=== PATIENT | female | born 1990 | race Caucasian/White ===

== ENCOUNTER → 2017-06-26 13:17 | Outpatient (CLI) | payer OTHER, SELFPAY ==
[2017-06-26 14:11] LABS: Hemoglobin A1c 9.8 % (4.2-6.3)
[2017-06-26 14:44] LABS: AST(SGOT) 11 U/L (15-37); Alanine Aminotransfer ALT/SGPT 19 U/L (13-56); Albumin, Serum 3.7 g/dL (3.2-5.0); Alkaline Phosphatase 92 U/L (45-117); Anion Gap 7 (5-15); BUN 20 mg/dL (7-18); BUN/Creat Ratio 23.2 RATIO (10-20); Calcium,Total 8.4 mg/dL (8.5-10.1); Chloride 104 mmol/L (98-107); Creatinine, Serum 0.86 mg/dL (0.55-1.02); EST Glomerular Filtration Rate 84 mL/min (>60); Est Glom Filt Rate - Afr Amer 101 mL/min (>60); Globulin 3.7 g/dL (2.2-4.2); Glucose 282 mg/dL (74-106); Protein, Total 7.4 g/dL (6.4-8.2); Sodium Level 138 mmol/L (136-145)
== END ==
PROVIDERS: Family Provider Nurse Practitioner; PCP Nurse Practitioner; Visit Provider Nurse Practitioner
DX: E10.9 Type 1 diabetes mellitus without complications (principal)
CPT/HCPCS: 36415; 80053; 83036

== ENCOUNTER → 2017-07-10 17:49 | Outpatient (CLI) | payer OTHER, SELFPAY ==
[2017-07-10 17:51] LABS: Bacteria 0 SEEN /hpf (None Seen); Mucous, Urine 0 SEEN /hpf (<or=2+); Red Blood Cells-Urine 0 SEEN /hpf (0-5); White Blood Cells 0 SEEN /hpf (0-5)
[2017-07-10 18:13] LABS: Color, Urine Yellow (Yellow); Glucose, Dipstick Normal (Normal); Ketone-Dipstick Negative (Negative); Leukocyte Esterase-Dipstick Negative /ul (Negative); Nitrite-Dipstick Negative (Negative); Occult Blood-Urine Negative /ul (Negative); Protein-Dipstick Negative (Negative); Specific Gravity, Urine 1.015 (1.002-1.030); Urine Bilirubin Dipstick Negative (Negative); Urine Clarity Clear (Clear); Urine Urobilinogen Normal (Normal)
[2017-07-10 18:33] LABS: Squamous Epithelial Cells - UA 0-5 SEEN /hpf (5-10)
== END ==
PROVIDERS: Family Provider Nurse Practitioner; PCP Nurse Practitioner; Visit Provider Physician Assistant Surgical
DX: R10.9 Unspecified abdominal pain (principal)
CPT/HCPCS: 81001; 87077; 87086; 87088

== ENCOUNTER → 2017-09-22 11:50 | Outpatient (CLI) | payer OTHER, SELFPAY ==
[2017-09-22 13:13] LABS: Microalbumin,Random Urine 7.4 mg/L (NO RANGE EST.)
[2017-09-22 13:39] LABS: Hemoglobin A1c 8.3 % (4.2-6.3)
[2017-09-22 13:40] LABS: ALB/GLOB Ratio 0.9 RATIO (0.9-2.4); AST(SGOT) 10 U/L (15-37); Alanine Aminotransfer ALT/SGPT 18 U/L (13-56); Albumin, Serum 3.7 g/dL (3.2-5.0); Alkaline Phosphatase 89 U/L (45-117); Anion Gap 7 (5-15); BUN 12 mg/dL (7-18); BUN/Creat Ratio 15.3 RATIO (10-20); Calcium,Total 9.3 mg/dL (8.5-10.1); Chloride 104 mmol/L (98-107); Creatinine, Serum 0.78 mg/dL (0.55-1.02); EST Glomerular Filtration Rate 93 mL/min (>60); Est Glom Filt Rate - Afr Amer 113 mL/min (>60); Globulin 3.9 g/dL (2.2-4.2); Glucose 136 mg/dL (74-106); Protein, Total 7.6 g/dL (6.4-8.2); Sodium Level 141 mmol/L (136-145)
== END ==
PROVIDERS: Visit Provider Nurse Practitioner
DX: E10.9 Type 1 diabetes mellitus without complications (principal)
CPT/HCPCS: 36415; 80053; 82043; 82570; 83036

== ENCOUNTER → 2018-02-22 14:30 | Outpatient (CLI) | payer BC, SELFPAY ==
[2018-02-22 12:42] VITALS: BMI 24.0
[2018-02-22 17:03] LABS: Hemoglobin A1c 9.3 % (4.2-6.3)
== END ==
PROVIDERS: Referring Provider Nurse Practitioner; Visit Provider Nurse Practitioner
DX: E10.9 Type 1 diabetes mellitus without complications (principal)
CPT/HCPCS: 36415; 83036

== ENCOUNTER → 2018-04-26 11:24 | Outpatient (CLI) | payer BC, SELFPAY ==
[2018-04-26 10:15] VITALS: BMI 24.0
[2018-04-26 13:29] LABS: Hemoglobin A1c 8.3 % (4.2-6.3)
[2018-04-26 13:38] LABS: AST(SGOT) 12 U/L (15-37); Alanine Aminotransfer ALT/SGPT 18 U/L (13-56); Albumin, Serum 3.9 g/dL (3.2-5.0); Alkaline Phosphatase 84 U/L (45-117); Anion Gap 5 (5-15); BUN 11 mg/dL (7-18); BUN/Creat Ratio 15.4 RATIO (10-20); Calcium,Total 8.6 mg/dL (8.5-10.1); Chloride 107 mmol/L (98-107); Creatinine, Serum 0.72 mg/dL (0.55-1.02); EST Glomerular Filtration Rate 103 mL/min (>60); Est Glom Filt Rate - Afr Amer 125 mL/min (>60); Globulin 3.9 g/dL (2.2-4.2); Glucose 155 mg/dL (74-106); Protein, Total 7.8 g/dL (6.4-8.2); Sodium Level 138 mmol/L (136-145)
== END ==
PROVIDERS: Referring Provider Nurse Practitioner; Visit Provider Nurse Practitioner
DX: E10.9 Type 1 diabetes mellitus without complications (principal)
CPT/HCPCS: 36415; 80053; 83036

== ENCOUNTER → 2018-06-21 09:34 | Outpatient (CLI) | payer BC, SELFPAY ==
[2018-05-31 13:08] VITALS: BMI 24.0
[2018-06-21 12:38] LABS: Absolute Lymphocyte Count 1.86 X10^3/ul (0.83-4.51); Absolute Neutrophil Count 3.9 X10^3/uL (2.0-7.7); Basophil# 0.02 X10^3/uL; Basophil% 0.3 % (0-1); Eosinophil# 0.09 X10^3/uL; Eosinophils% 1.4 % (0-5); Hematocrit 42.1 % (37-47); Hemoglobin 13.6 g/dl (12.0-15.0); Lymphocyte # 1.86 X10^3/ul (4.0); Lymphocyte % 29.7 % (19-41); Mean Corp Hgb Conc 32.3 g/gl (32-36); Mean Corpuscular Volume 83.7 fL (81-99); Mean Platelet Vol. 11.3 fl (6.2-12.0); Monocyte# 0.39 X10^3/uL; Monocyte% 6.2 % (0-10); Neutrophil % 62.2 % (47-70); Platelet Count 258 K/mm3 (150-450); RBC Distribution Width CV 14.6 % (11.6-14.6); Red Blood Count 5.03 M/mm3 (4.2-5.4); White Blood Count 6.3 K/mm3 (4.4-11.0)
[2018-06-21 12:42] LABS: POSITIVE COUNT NO; POSITIVE DIFFERENTIAL NO; POSITIVE MORPHOLOGY NO
[2018-06-21 12:47] LABS: Microalbumin,Random Urine 12.4 mg/L (NO RANGE EST.); Microalbumin:Creatinine Ratio 29.5 mg/g CRE (<30 mg/g CRE)
[2018-06-21 13:02] LABS: Cholesterol 129 mg/dL (200); High Density Lipoprotein 74 mg/dL; Triglycerides 35 mg/dL; Very Low Density Lipoprotein 7 mg/dL (5-40)
== END ==
PROVIDERS: PCP Internal Medicine; Visit Provider Internal Medicine
DX: E10.9 Type 1 diabetes mellitus without complications (principal)
CPT/HCPCS: 36415; 80061; 82043; 82570; 85025

== ENCOUNTER → 2018-10-08 15:29 | Outpatient (CLI) | payer BC, SELFPAY ==
[2018-10-08 11:41] VITALS: BMI 23.2
[2018-10-11 14:19] LABS: HPV Reflexed? NOT INDICATED
== END ==
PROVIDERS: Referring Provider Obstetrics & Gynecology; Visit Provider Obstetrics & Gynecology
DX: Z12.4 Encounter for screening for malignant neoplasm of cervix (principal)
CPT/HCPCS: 87624; 88175; G0145

== ENCOUNTER 2018-12-11 21:28 | Emergency (ER) | payer BC, SELFPAY ==
[2018-10-08 11:41] VITALS: BMI 23.2
[2018-12-11 21:29] VITALS: BP 114/78; PULSE 101; RESP 16; TEMP 36.6; O2SAT 99; BMI 23.1
--- NOTE | 2018-12-11 21:48 | ED.DCSUM_ITS ---
- ER Visit Summary Date of Service: 12/11/18 Chief Complaint: Vomiting and diarrhea History of Present Illness: The patient is a 28 F presenting with vomiting and diarrhea. Her symptoms started last night. She states she had one episode of vomiting. Today she developed diarrhea. She has had 8 episodes of diarrhea today. Denies blood in her stool. 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 She does not recall any patients with similar complaints. She has had no recent antibiotics, recent travel, or bad food exposure. She has had subjective fever. She denies abdominal pain. Denies urinary complaints. Denies other complaints. Physical Examination: Vitals are stable. Patient is afebrile. Alert no acute distress. HEENT exam is unremarkable. Neck is supple. Lungs are clear and equal bilaterally. Heart is regular rate and rhythm. Abdomen is soft nontender nondistended. No guarding or rebound Extremities are unremarkable. Skin is warm and dry. No focal neurologic deficit. Remainder of exam is unremarkable. Emergency Department Course and Treatment: Patient was given IV fluids, Zofran. CBC, chemistries unremarkable other than potassium 2.9, glucose 150. Liver lipase are normal. hCG negative. She is given potassium oral replacement. On reevaluation, she is feeling much improved. She is able to tolerate p.o. in the ED. She was unable to give a stool sample. She is given prescription for Zofran and K-Dur. She is advised to follow up with her primary care physician. Advised return to the ED for worsening complaints. Disposition: Discharge home Impression: Vomiting and diarrhea This note was generated with [employer] dictation software. It may contain incorrect words, spelling, and punctuation that were not noted in review of the chart prior to signing ED Disposition - Plan for ED Patient: Instructions: VOMITING AND DIARRHEA, Nonspecific (Adult) Prescriptions: Potassium Chloride [K-Dur] 20 meq PO DAILY #5 tab Prescription Printed Ondansetron [Zofran Odt] 4 mg PO Q8H PRN PRN #10 tab PRN Reason: Nausea Prescription Printed Referrals: Charmaine Cronin MD [Primary Care Provider] -
[2018-12-11] MEDS: Ondansetron 4 MG/2 ML Vial IV (21:54)
[2018-12-11] MEDS: 0.9% Normal Saline 1,000 ML 1000 ML IV (21:54)
[2018-12-11 21:55] LABS: Absolute Lymphocyte Count 0.76 X10^3/uL (0.83-4.51); Basophil# 0.02 X10^3/uL; Basophil% 0.5 % (0-1); Eosinophil# 0.03 X10^3/uL; Eosinophils% 0.7 % (0-5); Hematocrit 44.7 % (37-47); Hemoglobin 15.1 g/dL (12.0-15.0); Lymphocyte # 0.76 X10^3/ul (4.0); Lymphocyte % 18.1 % (19-41); Mean Corp Hgb Conc 33.8 g/dL (32-36); Mean Corpuscular Volume 82.8 fL (81-99); Monocyte# 0.32 X10^3/uL; Monocyte% 7.6 % (0-10); NRBC Flagged by Analyzer 0 % (0-5); Neutrophil # 3.03 X10^3/uL (2.7-7.7); Neutrophil % 72.4 % (47-70); Platelet Count 207 K/mm3 (150-450); RBC Distribution Width SD 38.9 fl (35.1-43.9); White Blood Count 4.2 K/mm3 (4.4-11.0)
[2018-12-11 22:08] LABS: AST(SGOT) 12 U/L (15-37); Alanine Aminotransfer ALT/SGPT 18 U/L (13-56); Albumin, Serum 3.6 g/dL (3.2-5.0); Alkaline Phosphatase 64 U/L (45-117); Anion Gap 8 (5-15); BUN 13 mg/dL (7-18); BUN/Creat Ratio 16.7 RATIO (10-20); Calcium,Total 8.2 mg/dL (8.5-10.1); Chloride 104 mmol/L (98-107); Creatinine, Serum 0.78 mg/dL (0.55-1.02); EST Glomerular Filtration Rate 93 mL/min (>60); Est Glom Filt Rate - Afr Amer 113 mL/min (>60); Estimated Creatinine Clearance 96.62 ml/min; Globulin 3.7 g/dL (2.2-4.2); Glucose 150 mg/dL (74-106); Lipase 56 U/L (73-393); Potassium 2.9 mmol/L (3.5-5.1); Protein, Total 7.3 g/dL (6.4-8.2); Sodium Level 137 mmol/L (136-145)
[2018-12-11 22:19] LABS: Internal QC Validated? YES +Cl - CLEAR BKGD; Pregnancy, Serum, hCG Quali. NEGATIVE Negative
--- NOTE | 2018-12-11 22:44 | ED.DEP ---
ED Disposition - Plan for ED Patient: Instructions: VOMITING AND DIARRHEA, Nonspecific (Adult) Prescriptions: Potassium Chloride [K-Dur] 20 meq PO DAILY #5 tablet Ondansetron [Zofran Odt] 4 mg PO Q8H PRN PRN #10 tablet PRN Reason: Nausea Referrals: Charmaine Cronin MD [Primary Care Provider] -
[2018-12-11 22:58] VITALS: PULSE 88; RESP 17; O2SAT 99
== END 2018-12-11 22:59 | disposition home or self-care (01) ==
LOC: ED 21:58
PROVIDERS: Emergency Provider Emergency Medicine; Family Provider Internal Medicine; PCP Internal Medicine
DX: R11.10 Vomiting, unspecified (principal); R19.7 Diarrhea, unspecified
CPT/HCPCS: 80053; 83690; 84703; 85025; 96361; 96374; 99284; J7030; A4216; J2405

== ENCOUNTER → 2019-01-28 09:56 | Outpatient (CLI) | payer BC, SELFPAY ==
[2019-01-28 10:54] LABS: Hemoglobin A1c 7.5 % (4.2-6.3)
[2019-01-28 11:06] LABS: Microalbumin,Random Urine 6.3 mg/L (NO RANGE EST.)
[2019-01-28 11:07] LABS: ALB/GLOB Ratio 1.1 RATIO (0.9-2.4); AST(SGOT) 12 U/L (15-37); Alanine Aminotransfer ALT/SGPT 17 U/L (13-56); Alkaline Phosphatase 61 U/L (45-117); Anion Gap 4 (5-15); BUN 16 mg/dL (7-18); BUN/Creat Ratio 20.7 RATIO (10-20); Calcium,Total 8.7 mg/dL (8.5-10.1); Chloride 108 mmol/L (98-107); Creatinine, Serum 0.77 mg/dL (0.55-1.02); EST Glomerular Filtration Rate 94 mL/min (>60); Est Glom Filt Rate - Afr Amer 113 mL/min (>60); Globulin 3.5 g/dL (2.2-4.2); Glucose 131 mg/dL (74-106); Potassium 3.9 mmol/L (3.5-5.1); Protein, Total 7.5 g/dL (6.4-8.2); Sodium Level 137 mmol/L (136-145); Thyroid Stim Hormone (TSH) 1.76 uIU/mL (0.358-3.74)
== END ==
PROVIDERS: Family Provider Internal Medicine; PCP Internal Medicine; Referring Provider Nurse Practitioner; Visit Provider Nurse Practitioner
DX: O24.011 Pre-existing type 1 diabetes mellitus, in pregnancy, first trimester (principal); Z3A.00 Weeks of gestation of pregnancy not specified
CPT/HCPCS: 36415; 80053; 82043; 83036; 84443

== ENCOUNTER → 2019-02-05 17:40 | Outpatient (CLI) | payer BC, SELFPAY ==
[2019-02-05 14:50] VITALS: BMI 23.1
[2019-02-05 19:59] LABS: Chlamydia Trachomatis by PCR Negative (Negative); Neisserai gonorrhoeae by PCR Negative (Negative); Probe Check PASS; Sample Adequacy Control PASS; Specimen Processing Control PASS
== END ==
PROVIDERS: Family Provider Internal Medicine; PCP Internal Medicine; Visit Provider Obstetrics & Gynecology
DX: Z34.90 Encounter for supervision of normal pregnancy, unspecified, unspecified trimester (principal)
CPT/HCPCS: 87491; 87591

== ENCOUNTER → 2019-02-15 13:51 | Outpatient (CLI) | payer BC, SELFPAY ==
[2019-02-05 14:50] VITALS: BMI 23.1
--- NOTE | 2019-02-15 13:51 | US_ITS ---
STUDY: FIRST TRIMESTER OBSTETRICAL ULTRASOUND REASON FOR EXAM: Female, 28 years old viability LMP: 12/09/2018 TECHNIQUE: Transabdominal TECHNICAL QUALITY: Adequate. PRIOR ULTRASOUND: None. FINDINGS: There is visualization of a single gestational sac in a normal intrauterine position. The mean sac diameter (MSD) measures 2.8 cm, indicating an estimated gestational age (EGA) of 7 weeks, 6 days. The gestational sac shape is within normal limits. There is a visualized yolk sac. The yolk sac measures 5.6 mm. The placenta is non-visualized due to early . There is visualization of a live embryo. The crown-rump length (CRL) measures 1.2 cm, indicating an estimated gestational age (EGA) of 7 weeks, 3 days. There is demonstrated cardiac activity with a heart rate of 157 bpm. The estimated gestation age (EGA) by LMP is 8 weeks, 4 days. The estimated date of delivery (SANTO) by LMP is 09/23/2019. The estimated gestation age (EGA) by US is 7 weeks, 4 days. The estimated date of delivery (SANTO) by US is 09/30/2019. The uterus measures 9.3 x 7.7 x 6.4 cm. There is no demonstrated uterine fibroid. The cervix is closed. The right ovary measures 4.9 x 3.4 x 3.3 cm. Corpus luteum cyst measures 2.5 cm. There is no visualized right adnexal mass or complex lesion. The left ovary measures 4.0 x 3.1 x 1.7 cm. There is no left ovarian cyst. There is no visualized left adnexal mass or complex lesion. There is no fluid in the cul de sac. US/Init OB < 14Wks US IMPRESSION: 1. Single live intrauterine correlating to gestational age of 7 weeks and 4 days. Electronically Signed: Sonu Quesada MD (Brooks) at 12:36 EST , Service support ,
== END ==
PROVIDERS: Family Provider Internal Medicine; PCP Internal Medicine; Referring Provider Obstetrics & Gynecology; Visit Provider Obstetrics & Gynecology
DX: Z34.90 Encounter for supervision of normal pregnancy, unspecified, unspecified trimester (principal)
CPT/HCPCS: 76801

== ENCOUNTER → 2019-02-26 16:05 | Outpatient (CLI) | payer BC, SELFPAY ==
[2019-02-19 10:21] VITALS: BMI 23.1
[2019-02-26 16:52] LABS: Absolute Lymphocyte Count 2.25 X10^3/uL (0.83-4.51); Absolute Neutrophil Count 5.6 X10^3/uL (2.0-7.7); Basophil# 0.02 X10^3/uL; Basophil% 0.2 % (0-1); Eosinophil# 0.13 X10^3/uL; Eosinophils% 1.5 % (0-5); Hematocrit 38.8 % (37-47); Hemoglobin 12.6 g/dL (12.0-15.0); Lymphocyte # 2.25 X10^3/ul (4.0); Lymphocyte % 26.6 % (19-41); Mean Corp Hgb Conc 32.5 g/dL (32-36); Mean Corpuscular Hgb 27.4 pg (27.0-32.0); Mean Corpuscular Volume 84.3 fL (81-99); Mean Platelet Vol. 10.1 fl (6.2-12.0); Monocyte# 0.46 X10^3/uL; Monocyte% 5.4 % (0-10); NRBC Flagged by Analyzer 0 % (0-5); Neutrophil # 5.56 X10^3/uL (2.7-7.7); Neutrophil % 65.9 % (47-70); Platelet Count 312 K/mm3 (150-450); RBC Distribution Width CV 13.7 % (11.6-14.6); RBC Distribution Width SD 42.2 fl (35.1-43.9); White Blood Count 8.5 K/mm3 (4.4-11.0)
[2019-02-27 10:53] LABS: Hepatitis B Surface Antigen Non-Reactive (Nonreactive); Rubella IgG 41.8 IU/mL
[2019-02-27 19:40] LABS: Rapid Plasmin Reagin (RPR) NONREACTIVE (NONREACTIVE)
[2019-02-28 16:15] LABS: HIV - WCH Non-Reactive (Nonreactive)
== END ==
PROVIDERS: Family Provider Internal Medicine; PCP Internal Medicine; Referring Provider Obstetrics & Gynecology; Visit Provider Obstetrics & Gynecology
DX: Z34.81 Encounter for supervision of other normal pregnancy, first trimester (principal)
CPT/HCPCS: 36415; 85025; 86592; 86703; 86762; 86850; 86900; 86901; 87340

== ENCOUNTER 2019-03-18 21:26 | Emergency (ER) | payer BC, SELFPAY ==
[2019-03-08 15:47] VITALS: BMI 23.1
[2019-03-18 21:27] VITALS: BP 145/82; PULSE 80; RESP 16; TEMP 36.7; O2SAT 99; BMI 24.4
--- NOTE | 2019-03-18 21:35 | ED.RN ---
ED MD at bedside preforming bedside ultrasound and obtaining HR.
--- NOTE | 2019-03-18 21:40 | ED.DCSUM_ITS ---
- ER Visit Summary Date of Service: 03/18/19 Chief Complaint: Vaginal spotting History of Present Illness: The patient is a 29 F with vaginal spotting this evening. She is G4, P1 at 13 weeks. 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 She currently takes aspirin and Lovenox. No other symptoms like pain or discharge. She is a type I diabetic with good blood sugar control. Physical Examination: Afebrile and vital signs unremarkable. Alert and oriented. No acute distress. Abdomen soft and nontender. Test Results: Bedside ultrasound performed by ca shows intrauterine with heart rate of 132 and positive movement. Emergency Department Course and Treatment: Patient is known to Dr. Pablo. She called and advised bedside ultrasound with reassurance provided that that ul trasound is normal. Bedside ultrasound and exam were reassuring. Patient will be discharged home. I will notify Dr. Pablo. Treatment Plan: As above Disposition: Discharge Impression: 1. Threatened This note was generated with [employer] dictation software. It may contain incorrect words, spelling, and punctuation that were not noted in review of the chart prior to signing ED Disposition - Plan for ED Patient: Referrals: Charmaine Cronin MD [Primary Care Provider] -
--- NOTE | 2019-03-18 21:44 | ED.DEP ---
ED Disposition - Plan for ED Patient: Instructions: POSSIBLE MISCARRIAGE (Threatened ) Referrals: Vandana Pablo MD [STAFF PHYSICIAN] -
== END 2019-03-18 21:54 | disposition home or self-care (01) ==
LOC: ED 21:48
PROVIDERS: Emergency Provider Emergency Medicine; PCP Internal Medicine
DX: O20.0 Threatened abortion (principal); O24.011 Pre-existing type 1 diabetes mellitus, in pregnancy, first trimester; E10.9 Type 1 diabetes mellitus without complications; Z79.4 Long term (current) use of insulin; Z79.01 Long term (current) use of anticoagulants; Z79.82 Long term (current) use of aspirin; Z79.899 Other long term (current) drug therapy; Z3A.13 13 weeks gestation of pregnancy
CPT/HCPCS: 99282

== ENCOUNTER → 2019-04-18 16:22 | Outpatient (CLI) | payer BC, SELFPAY ==
[2019-04-18 16:07] VITALS: BMI 24.4
[2019-04-18 17:47] LABS: Hemoglobin A1c 6.2 % (4.2-6.3)
== END ==
PROVIDERS: PCP Internal Medicine; Referring Provider Obstetrics & Gynecology; Visit Provider Nurse Practitioner
DX: O24.012 Pre-existing type 1 diabetes mellitus, in pregnancy, second trimester (principal); Z3A.00 Weeks of gestation of pregnancy not specified
CPT/HCPCS: 36415; 83036

== ENCOUNTER → 2019-05-14 11:38 | Outpatient (CLI) | payer BC, SELFPAY ==
[2019-05-14 10:55] VITALS: BMI 24.4
[2019-05-14 12:20] LABS: ALB/GLOB Ratio 0.8 RATIO (0.9-2.4); AST(SGOT) 15 U/L (15-37); Alanine Aminotransfer ALT/SGPT 17 U/L (13-56); Albumin, Serum 3.2 g/dL (3.2-5.0); Alkaline Phosphatase 64 U/L (45-117); Anion Gap 6 (5-15); BUN 10 mg/dL (7-18); BUN/Creat Ratio 16.9 RATIO (10-20); Calcium,Total 8.9 mg/dL (8.5-10.1); Chloride 105 mmol/L (98-107); Creatinine, Serum 0.59 mg/dL (0.55-1.02); EST Glomerular Filtration Rate 128 mL/min (>60); Est Glom Filt Rate - Afr Amer 154 mL/min (>60); Globulin 4.2 g/dL (2.2-4.2); Glucose 84 mg/dL (74-106); Potassium 4.2 mmol/L (3.5-5.1); Protein, Total 7.4 g/dL (6.4-8.2); Sodium Level 137 mmol/L (136-145)
== END ==
PROVIDERS: PCP Internal Medicine; Referring Provider Obstetrics & Gynecology; Visit Provider Obstetrics & Gynecology
DX: L29.9 Pruritus, unspecified (principal)
CPT/HCPCS: 36415; 80053

== ENCOUNTER → 2019-06-11 15:00 | Outpatient (CLI) | payer BC, SELFPAY ==
[2019-05-14 10:55] VITALS: BMI 24.4
[2019-06-11 16:01] LABS: Microalbumin,Random Urine 5.8 mg/L (NO RANGE EST.); Microalbumin:Creatinine Ratio 5.7 mg/g CRE (<30 mg/g CRE)
[2019-06-11 16:04] LABS: Hemoglobin A1c 6.4 % (4.2-6.3)
[2019-06-11 16:10] LABS: Cholesterol 235 mg/dL (200); High Density Lipoprotein 101 mg/dL; Triglycerides 153 mg/dL; Very Low Density Lipoprotein 31 mg/dL (5-40)
== END ==
PROVIDERS: PCP Internal Medicine; Referring Provider Nurse Practitioner; Visit Provider Nurse Practitioner
DX: E10.9 Type 1 diabetes mellitus without complications (principal)
CPT/HCPCS: 36415; 80061; 82043; 82570; 83036

== ENCOUNTER → 2019-07-02 15:47 | Outpatient (CLI) | payer BC, SELFPAY ==
[2019-07-02 15:12] VITALS: BMI 24.4
[2019-07-02 16:01] LABS: Absolute Lymphocyte Count 1.67 X10^3/uL (0.83-4.51); Absolute Neutrophil Count 7.9 X10^3/uL (2.0-7.7); Basophil# 0.02 X10^3/uL; Basophil% 0.2 % (0-1); Hematocrit 35.1 % (37-47); Hemoglobin 11.9 g/dL (12.0-15.0); Lymphocyte # 1.67 X10^3/ul (4.0); Lymphocyte % 16.3 % (19-41); Mean Corp Hgb Conc 33.9 g/dL (32-36); Mean Corpuscular Hgb 29.1 pg (27.0-32.0); Mean Corpuscular Volume 85.8 fL (81-99); Mean Platelet Vol. 10.5 fl (6.2-12.0); Monocyte# 0.45 X10^3/uL; Monocyte% 4.4 % (0-10); NRBC Flagged by Analyzer 0 % (0-5); Neutrophil # 7.92 X10^3/uL (2.7-7.7); Platelet Count 218 K/mm3 (150-450); RBC Distribution Width CV 13.4 % (11.6-14.6); RBC Distribution Width SD 41.4 fl (35.1-43.9); Red Blood Count 4.09 M/mm3 (4.2-5.4); White Blood Count 10.3 K/mm3 (4.4-11.0)
== END ==
PROVIDERS: PCP Internal Medicine; Referring Provider Obstetrics & Gynecology; Visit Provider Obstetrics & Gynecology
DX: O09.90 Supervision of high risk pregnancy, unspecified, unspecified trimester (principal); Z3A.00 Weeks of gestation of pregnancy not specified
CPT/HCPCS: 36415; 85025

== ENCOUNTER → 2019-08-29 | Outpatient (CLI) | payer BC, SELFPAY ==
[2019-08-29 11:34] VITALS: BMI 24.4
== END | disposition home or self-care (01) ==
LOC: LABSPEC 14:53
PROVIDERS: PCP Internal Medicine; Referring Provider Obstetrics & Gynecology; Visit Provider Obstetrics & Gynecology
DX: O09.90 Supervision of high risk pregnancy, unspecified, unspecified trimester (principal); Z3A.00 Weeks of gestation of pregnancy not specified
CPT/HCPCS: 87081

== ENCOUNTER 2019-09-10 07:35 | Outpatient (CLI) | payer BC, SELFPAY ==
[2019-09-06 09:15] VITALS: BMI 24.4
[2019-09-10 07:50] VITALS: BMI 29.6
[2019-09-10 07:56] VITALS: BP 116/73; PULSE 101
[2019-09-10 08:19] LABS: Hematocrit 34.9 % (37-47); Hemoglobin 11.2 g/dL (12.0-15.0); Mean Corp Hgb Conc 32.1 g/dL (32-36); Mean Corpuscular Hgb 27.5 pg (27.0-32.0); Mean Corpuscular Volume 85.5 fL (81-99); Mean Platelet Vol. 11.5 fl (6.2-12.0); Platelet Count 168 K/mm3 (150-450); RBC Distribution Width CV 13.3 % (11.6-14.6); RBC Distribution Width SD 41.8 fl (35.1-43.9); Red Blood Count 4.08 M/mm3 (4.2-5.4); White Blood Count 6.8 K/mm3 (4.4-11.0)
[2019-09-10 08:45] LABS: Fibrinogen 468 mg/dl (203-444)
--- NOTE | 2019-09-10 10:06 | OB.TRI.PN ---
Progress Notes Date of Service: 09/10/19 Progress Note: Patient presents for triage evaluation secondary to vaginal bleeding in FHT: 130 Moderate variability reactive no decelerations category I tracing [place]: No regular contractions Assessment and plan: Vaginal bleeding?/posterior. No cervical change after monitoring for several hours. No regular contractions. No active bleeding seen. Reactive NST, reassuring maternal and status patient discharged to home to follow-up as scheduled in office reviewed labor precautions and bleeding precautions. See problem list details for additional plan information. Laboratory Studies: Laboratory Tests 09/10/19 09/10/19 Range/Units 08:09 08:09 WBC 6.8 (4.4-11.0) K/mm3 RBC 4.08 L (4.2-5.4) M/mm3 Hgb 11.2 L (12.0-15.0) g/dL Hct 34.9 L (37-47) % MCV 85.5 (81-99) fL MCH 27.5 (27.0-32.0) pg MCHC 32.1 (32-36) g/dL RDW Std Deviation 41.8 (35.1-43.9) fl RDW Coeff of Maryuri 13.3 (11.6-14.6) % Plt Count 168 (150-450) K/mm3 MPV 11.5 (6.2-12.0) fl Fibrinogen 468 H (203-444) mg/dl Multi Select Codes - Urinary/Genital Urinary/Genital CPT Codes: 18544-96 non-stress test Interp
== END 2019-09-10 09:45 | disposition home or self-care (01) ==
LOC: WPOUT 07:39 → OBT 07:39
PROVIDERS: PCP Internal Medicine; Referring Provider Obstetrics & Gynecology; Visit Provider Obstetrics & Gynecology
DX: O46.90 Antepartum hemorrhage, unspecified, unspecified trimester (principal)
CPT/HCPCS: 59025; 59050; 85027; 85384; 87635; 99218; G0378; U0003

== ENCOUNTER 2019-09-16 05:05 | Inpatient (IN) | payer BC, SELFPAY ==
[2019-08-08 14:47] VITALS: BMI 24.4
[2019-09-13 09:51] VITALS: BMI 29.6
[2019-09-16] VITALS (22 sets, daily range): BP systolic 97–125; BP diastolic 54–79; PULSE 76–102; RESP 14–18; TEMP 35.9–37.1; O2SAT 65–99; BMI 30.1
[2019-09-16] MEDS: Lactated Ringers 1,000 ML 999 ML IV (05:45)
[2019-09-16 05:54] LABS: Absolute Lymphocyte Count 1.69 X10^3/uL (0.83-4.51); Absolute Neutrophil Count 5.1 X10^3/uL (2.0-7.7); Basophil# 0.02 X10^3/uL; Basophil% 0.3 % (0-1); Eosinophil# 0.08 X10^3/uL; Eosinophils% 1.1 % (0-5); Hematocrit 33.9 % (37-47); Lymphocyte # 1.69 X10^3/ul (4.0); Lymphocyte % 22.3 % (19-41); Mean Corp Hgb Conc 32.4 g/dL (32-36); Mean Corpuscular Volume 83.3 fL (81-99); Mean Platelet Vol. 11.8 fl (6.2-12.0); Monocyte# 0.57 X10^3/uL; Monocyte% 7.5 % (0-10); NRBC Flagged by Analyzer 0 % (0-5); Neutrophil # 5.13 X10^3/uL (2.7-7.7); Neutrophil % 67.6 % (47-70); Platelet Count 176 K/mm3 (150-450); RBC Distribution Width CV 13.3 % (11.6-14.6); RBC Distribution Width SD 40.4 fl (35.1-43.9); Red Blood Count 4.07 M/mm3 (4.2-5.4); White Blood Count 7.6 K/mm3 (4.4-11.0)
[2019-09-16] MEDS: Lactated Ringers 1,000 ML 150 ML IV (06:45)
[2019-09-16] MEDS: Acetaminophen 500 MG Tablet 1000 MG PO ×3 (06:46→20:06)
[2019-09-16] MEDS: Sodium Citrate/Citric Acid 30 ML UDC PO (06:47)
[2019-09-16 07:21] LABS: Bedside Glucose 95 mg/dL (70-110)
--- NOTE | 2019-09-16 07:56 | HP.PCM_ITS ---
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: 40 mg Lovenox until 12 weeks, and 81 mg baby ASA continuous (2) H/O section Status: Acute Comment: AOD CPD plan RLTCS; SCHEDULED 09/15 @ 0730 BOOK AND SOAP GIVEN (3) History of delivery, currently Status: Acute Comment: on progesterone injections (4) HEATHER-1 4G/4G genotype Status: Acute (5) Status: Acute Qualifiers: (6) Supervision of high risk , antepartum Status: Acute Comment: PRR SANTO 09/23/19 girl PC Piper Francis (7) Insulin pump titration Status: Chronic Comment: endocrine management (8) Presence of insulin pump Status: Chronic (9) Type 1 diabetes mellitus without complication, with long-term current use of insulin Status: Chronic Comment: History and Physical Date of Admission: 09/16/19 Intake Vital Signs 09/13/19 BMI 29.6 09/13/19 Height 5 ft 5 in 09/13/19 Weight: 180 lb 09/13/19 BMI 29.9 09/13/19 BP 126/74 H 08/22/19 BMI 24.4 Intake Visit Reasons: 38WK NST/OB VISIT [employer] Required: No Is patient in pain?: No Allergies lovastatin Allergy (Severe, Verified 09/13/19 09:50) Unknown Medications blood sugar diagnostic See Dose Instructions .ROUTE .MEDSUPPLY #20 ea 02/23/17 [History Confirmed 09/13/19] lancets 28 gauge See Dose Instructions .ROUTE .MEDSUPPLY #25 ea 02/23/17 [History Confirmed 09/13/19] blood-glucose meter See Dose Instructions .ROUTE .MEDSUPPLY #1 ea 06/13/17 [Rx Confirmed 09/13/19] pen needle, diabetic 31 gauge x 5/16 See Dose Instructions .ROUTE .MEDSUPPLY #550 ea 06/13/17 [Rx Confirmed 09/13/19] insulin aspart U-100 100 unit/mL subcutaneous solution See Rx Instructions SC DAILY #60 ml 03/01/18 [Rx Confirmed 09/13/19] aspirin 81 mg tablet,delayed release 81 mg PO DAILY 03/08/19 [History Confirmed 09/13/19] vitamin#30 30 mg iron-10 mg iron-folic acid 1 mg-omg3 capsule 1 cap PO DAILY 03/08/19 [History Confirmed 09/13/19] Last Menstral Period: 12/17/18 Zika: Zika virus screening: Negative : No PFSH PFSH Medical History Diabetes type 1, controlled (Acute) Factor XIII deficiency (Acute) History of miscarriage (Acute) HEATHER-1 4G/4G genotype (Acute) Surgical History H/O: (Acute) Family History Mother Breast cancer Grandfather Osteoporosis Grandmother Diabetes Hypertension Social History (Updated 09/13/19 @ 10:[address] 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 OB Visit SANTO Calculator Estimated Delivery Date Method Current WG Current Estimate 09/23/19 LMP (Certain) 38w 4d Expected Delivery Route/Plan RLTCS Labor Preferences- labor support person: Francis pain management options preferred: cs cut cord/dad catch: : yes PP control planned: Specific Issue/Plans flu vaccine: given tdap vaccine: given rhogam: na LARC form signed: declined movement and labor precautions reviewed. Problem list reviewed and updated with the most current plan of care details and appropriate orders placed. Relevant counseling for the gestational age provided. Continue routine care and follow up unless otherwise noted in visit notes/problem list details Initial Weight: 140 lb Date EGA Weight BP Urine Prot Glucose FHR FuHt Pres Dilation Effaced St Visit Note 02/19/19 9w 1d 145 lb 6 oz (+5 lb 6 oz) 123/78 Negative Negative 175 SM- no vb cramping, BS well controlled 03/08/19 11w 4d 147 lb (+7 lb) 108/60 170 SM- BS well controlled. 03/22/19 13w 4d 152 lb (+12 lb) 98/50 150 SM- still having spotting intermittently, no lof crmaping. BS well controlled. 04/18/19 17w 3d 154 lb (+14 lb) 110/62 Negative Negative 150 SM- no vb lof good fm no regular ctx 05/14/19 21w 1d 156 lb (+16 lb) 124/66 150 SM- no vb lof co itching good fm check cmp and bile acids 07/02/19 28w 1d 165 lb 6 oz (+25 lb 6 oz) 126/82 Negative Negative 150 28 SM- no vb lof good fm no regular ctx BS doing well, adjusting 07/19/19 30w 4d 170 lb (+30 lb) 130/82 Negative Negative 141 30 MH-no VB, LOF. Good FM. BS stable. Growth US scheduled 08/01/19 32w 3d 168 lb 8 oz (+28 lb 8 oz) Negative Negative 140 32 Sm- no vb lof good fm no regular ctx 08/08/19 33w 3d 170 lb (+30 lb) 108/62 Negative Negative 08/15/19 34w 3d 171 lb (+31 lb) 114/68 Negative Negative 08/22/19 35w 3d 173 lb (+33 lb) 104/60 140 SM- no vb lof good fm n oregular ctx 08/29/19 36w 3d 174 lb 8 oz (+34 lb 8 oz) 120/60 Negative Negative 150 SM- no vb lof good fm no regular ctx gbs today BS controlled growth 85% 09/06/19 37w 4d 176 lb 8 oz (+36 lb 8 oz) 122/76 Negative Negative 140 SM- no vb lof good fm discussed sterilization at time of cs will schedule. covid testing next week 09/13/19 38w 4d 180 lb (+40 lb) 126/74 Negative Negative 140 cs scheduled monday, discussed perioperative blood sugar control ACOG First Trimester First Trimester: Second Trimester Second Trimester: Signs and Symptoms of Labor, Selecting a care provider, Reproductive Life Planning, Care Planning, Tobacco Cessation, Depression/Anxiety and Intimate Partner Violence Third Trimester Third Trimester: Pain Management Plans, Labor support person(s), Immediate Larc, Movement Monitoring and Infant Feeding Yes ; discussed Trial of Labor after Counseling or discussed Circumcision preference Diagnostics Diagnostics Diagnostics Hgb 11.2 g/dL (12.0-15.0) L 09/10/19 Hct 34.9 % (37-47) L 09/10/19 Details: HIV: Urine Culture: Sequential Screen: NIPT Screen: ROS Const Reports system reviewed and no additional complaints, except as docu Card Reports system reviewed and no additional complaints, except as docu Resp Reports system reviewed and no additional complaints, except as docu GI Reports system reviewed and no additional complaints, except as docu, Reports nausea Reports system reviewed and no additional complaints, except as docu Musc Reports system reviewed and no additional complaints, except as docu Exam Const General: cooperative, healthy appearing, comfortable, anxious HENOK Head: normal to inspection Nose: external nose normal Face and sinus: normal facial exam Neck Neck: normal visual inspection, full ROM, no lymphadenopathy Thyroid: thyroid normal Chest Chest palpation & inspection: normal inspection of the chest Resp Effort & Inspection: normal respiratory effort GI Inspection: normal to inspection Palpation: soft, other (gravid uterus) Other: infant vertex and appropriate size for gestational age Other: Cervical Exam: Extrem General: pedal edema Results POC Urinalysis 2 Dip (Clinic) Office Urine Glucose Negative Last Edit by Mariama Rosas on 09/13/19 10:00 Office Urine Protein Negative Last Edit by Mariama Rosas on 09/13/19 10:00 Assessment & Plan Problems 1. Insulin pump titration Z46.81 endocrine management 2. Presence of insulin pump Z96.41 3. Supervision of high risk , antepartum O09.90 PRR SANTO 09/23/19 girl PC Piper Francis 4. 38 weeks gestation of Z3A.38 5. HEATHER-1 4G/4G genotype Z15.89 6. H/O section Z98.891 AOD CPD plan RLTCS; SCHEDULED 09/15 @ 0730 BOOK AND SOAP GIVEN 7. 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 Type 1 diabetes mellitus without complication, with long-term current use of insulin E10.9 plan RLTCS and BS manage BS per patient regulation with pump Orders Orders: OB NST Today E10.9 POC Urinalysis 2 Dip (Clinic) Today Coding Level of Care Code OB Routine Diagnoses Insulin pump titration Z46.81 Presence of insulin pump Z96.41 Supervision of high risk , antepartum O09.90 38 weeks gestation of Z3A.38 ??Weeks of gestation: 38 weeks HEATHER-1 4G/4G genotype Z15.89 H/O section Z98.891 History of delivery, currently O09.219 Factor XIII deficiency D68.2 Type 1 diabetes mellitus without complication, with long-term current use of insulin E10.9 UPDATE- I have seen the patient and performed any clinically relevant updates to the history and physical exam. Vandana Pablo MD
--- NOTE | 2019-09-16 07:57 | OP.PCM_ITS ---
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: 40 mg Lovenox until 12 weeks, and 81 mg baby ASA continuous (2) H/O section Status: Acute Comment: AOD CPD plan RLTCS; SCHEDULED 09/15 @ 0730 BOOK AND SOAP GIVEN (3) History of delivery, currently Status: Acute Comment: on progesterone injections (4) HEATHER-1 4G/4G genotype Status: Acute (5) Status: Acute Qualifiers: (6) Supervision of high risk , antepartum Status: Acute Comment: PRR SANTO 09/23/19 girl PC Piper Francis (7) Insulin pump titration Status: Chronic Comment: endocrine management (8) Presence of insulin pump Status: Chronic (9) Type 1 diabetes mellitus without complication, with long-term current use of insulin Status: Chronic Comment: Delivery Classification: Scheduled Final SANTO: 09/23/19 Gestational age: 39 Weeks and 1 Days Special Medications: none Implants Used: none Date of Procedure: 09/16/19 Pre-Operative Diagnosis: previous , desires sterilization, type I diabetes Post-Operative Diagnosis: same Indications for : Repeat Elective , Desires elective sterilization Description of Procedure: Spinal anesthesia was placed without difficulty. Mcguire catheter was placed. The patient was placed in the dorsal supine position with leftward tilt. Patient was prepped and draped in the normal sterile fashion. Pfannenstiel skin incision was made with the scalpel and carried through to the underlying layer of fascia with the scalpel. Fascia was nicked in the midline and the incision extended laterally. The rectus bellies were dissected off superiorly and inferiorly with out complication both sharply and bluntly. The peritoneum was entered digitally. The incision was stretched and a low transverse uterine incision was made with the scalpel. The infant's head was delivered atraumatically followed by the anterior and posterior shoulders without compli cation the rest of the infant delivered. The cord was clamped and cut and the infant was handed off to awaiting nurse. The placenta was delivered spontaneously immediately following and was noted to be intact and have a three- vessel cord. The uterus was exteriorized cleared of all clots and debris, and the incision was closed in a single layer closure using #1 Monocryl. The ovaries and fallopian tubes were noted to be within normal limits. Patient had desired sterilization and was counseled preoperatively regarding irreversibility and permanency. Therefore bilateral fallopian tubes were elevated and transected across using a LigaSure device starting proximally to distally without complication the entire fallopian tubes were removed. The uterus was returned to the maternal abdomen and gutters were cleared of all clots and debris. The peritoneum was closed with 3-0 Monocryl in a running fashion. Gloves were changed prior to fascial closure. Fascia was closed with 0 PDS in a running fashion. Subcutaneous tissue was copiously irrigated and the skin was closed with 3-0 Monocryl in a subcuticular fashion. Mepilex dressing was applied without complication. Patient was taken to recovery in stable condition. Amniotic Membrane Rupture Type: Artificial Amniotic Fluid Description: Clear Placenta Disposition: [facility] Drain: Mcguire to straight drain Cord Entanglement: None Esitmated Blood Loss (ml): 800 Infant Gender: Female Delayed cord clamping: Yes Antibiotic Given: Ancef 2 grams IV x1 Pt instructed on risks of surgery: Bleeding, Anesthesia Risks, Infection, Permanency, Injury to surrounding structure(s) including bowel and bladder Complications: None - Admit VTE Documentation VTE Present on Admission: No VTE Mechan Device Prophylaxis: SCD's Multi Select Codes - Urinary/Genital Urinary/Genital CPT Codes: 06343 C/S+TL - bilateral salpingectomy, 36933 Delivery [facility]
[2019-09-16] MEDS: Cefazolin 2 GM in 0.9% Normal Saline 100 ML IV (09:36)
--- NOTE | 2019-09-16 10:03 | FALS_PTH ---
PATIENT: PATRICK CORREIA LOC: [facility] U#:[id number] AGE/SX: ROOM: WP007 RE09/16/[address]: Dr. Vandana Pablo MD : 1990 BED: 1 DIS: 09/18/2019 SPEC #: [id number] RECD: 09/16/19 12:25 STATUS: HERMELINDA REJonathan #: [id number] YARA: 09/16/19 10:[address]: Vandana Pablo DEPT: SURGICAL PATHOLOGY RECD BY: Bernardino Figueroa ENTERED: 09/16/19 13:09 SP TYPE: FALL TUBES OTHR DR: Dr. Charmaine Croinn MD Tissues: Fallopian tube Procedures: Surgery Specimen Level II HEADER OPERATION: Tubal ligation PRE-OP DIAGNOSIS: Sterilization TISSUE SUBMITTED: Fallopian tubes, suture in right tube MICROSCOPIC DIAGNOSIS Right and left fallopian tubes, bilateral salpingectomies: Two complete segments of fallopian tubes with no pathologic change. AM:libby 09/17/19 MICROSCOPIC DESCRIPTION Slides are reviewed. GROSS DESCRIPTION Received in fixative is one container labeled with the patient's name and designated bilateral fallopian tubes, suture in right tube. The specimen consists of bilateral fallopian tubes including fimbrial ends. The right fallopian tube measures 10 cm in length and up to 1 cm in diameter and the left fallopian tube measures 8 cm in length and up to 1 cm in diameter. Sections reveal unremarkable cut surfaces. Manager Terminal sections are submitted in two cassettes as follows: 1 - right fallopian tube, 2 - left fallopian tube. / SJ:libby 09/16/19 TC:4 CPT: 09730 x2
[2019-09-16] MEDS: Ketorolac 30 MG/ML Syringe IV ×3 (10:41→23:23)
[2019-09-16] MEDS: Oxytocin 30 units/NS 500 ml 30 UNITS/500 ML IV.SOLN 167 UNITS IV (10:55)
[2019-09-16 11:30] LABS: Bedside Glucose 122 mg/dL (70-110)
[2019-09-16 12:29] LABS: Pathology Specimen OB SEE PATHOLOGY REPORT
[2019-09-16] MEDS: Lactated Ringers 1,000 ML 100 ML IV (14:08)
--- NOTE | 2019-09-16 14:37 | NURSING ---
Addendum entered by Nisha Shields 09/16/19 15:53: Original Note: Pt has her own insulin infusion pump. giving verbal consent to obtain glucose levels from her pump and pt is to manage her insulin pump. stating to notify her of BS >200 or less than 70. Pre-op BS at 0630: 95 (pt's pump 89). Pt's pump: 0815:103 0933:100 0934: Pt's insulin infusion pump disconnected and turned off per 's request prior to surgery. 1047: In recovery pt's personal insulin pump reconnected and initiated. Programmed by pt per 's recommendation to the pt prior to hospital admission. agreed with the recommendation. 1130: BS 158 (via own pump) pt administered 0.7 units Novolog per pump 1141: BS: 153 (via own pump) 1155:BS: 159 (via own pump) Novolog 0.5 units 1200: Called 's office. Aware of BS and insulin administration. No new orders received. 1204: BS 163 (via own pump) 1206: 1209: BS 165 (via own pump) Novolog 0.5 units Pt stating that she is switching Insulin pump profile to pre-delivery profile. notified. agrees and stating okay with a range of 70-200. 1225: BS 167 (via own pump) 1255: BS 160 (via own pump) 1400: BS 126 (via own pump)
--- NOTE | 2019-09-16 15:55 | NURSING ---
1520: BS 77 (pts own pump) Pt drinking apple juice. 1530: Called and requested to have orders for pt's own insulin pump.
[2019-09-16 17:50] LABS: Bedside Glucose 72 mg/dL (70-110)
[2019-09-16] MEDS: Ondansetron 4 MG/2 ML Vial IV (17:51)
--- NOTE | 2019-09-16 19:02 | NURSING ---
1620:BS 68 (via pt's own insulin) Pt asymptomatic. Sprite zero and saltine crackers given. Pt changed insulin program to post delivery profile. 1720:BS 81(via hospital's accucheck) Pt's meal at bedside but unable to eat. Zofran given at 1755. Pt feels better after zofran but doesnt have an appitite. Saltine crackers and sprite zero given and tolerated well. 1850: Pt gave Novolog 1.86 units. 0: BS 104 (via pt's own insulin).
--- NOTE | 2019-09-16 22:00 | NURSING ---
Pt stated at approximately 2100-gave 2u insulin prior to eating sandwich. 2200-blood glucose 168. Pt managing independently and states blood glucose is decreasing. Pt to watch and manage, to let RN know if blood glucose above 200.
[2019-09-16] MEDS: Enoxaparin 40 MG/0.4 ML Syringe SC (22:03)
[2019-09-16] MEDS: 0.9% Saline Lock 10 ML Syringe IV (23:23)
[2019-09-17] MEDS: Acetaminophen 500 MG Tablet 1000 MG PO ×4 (02:14→20:29)
--- NOTE | 2019-09-17 03:51 | NURSING ---
0351 BS-139 via insulin pump per pt report.
[2019-09-17 03:57] VITALS: BP 104/51; PULSE 81; RESP 18; TEMP 36.6; O2SAT 96
--- NOTE | 2019-09-17 05:00 | NURSING ---
Pt reports void completed when RN entered room. States feels like bladder is empty. Output per pt report 150ml but pt states she might have missed hat. Plan to monitor pt for void and encourage PO fluids. Pt verbalizes understanding and will notify RN when next void.
[2019-09-17] MEDS: Ketorolac 30 MG/ML Syringe IV (05:07)
[2019-09-17] MEDS: 0.9% Saline Lock 10 ML Syringe IV (05:07)
[2019-09-17 05:29] LABS: Hemoglobin 10.1 g/dL (12.0-15.0); Mean Corp Hgb Conc 32.6 g/dL (32-36); Mean Corpuscular Hgb 27.7 pg (27.0-32.0); Mean Corpuscular Volume 85.2 fL (81-99); Mean Platelet Vol. 11.5 fl (6.2-12.0); Platelet Count 162 K/mm3 (150-450); RBC Distribution Width CV 13.6 % (11.6-14.6); RBC Distribution Width SD 42.2 fl (35.1-43.9); Red Blood Count 3.64 M/mm3 (4.2-5.4); White Blood Count 7.4 K/mm3 (4.4-11.0)
[2019-09-17 07:00] VITALS: BP 101/59; PULSE 82; RESP 15; TEMP 36.6
[2019-09-17] MEDS: Senna/Docusate Sodium 1 Tablet PO (08:19)
[2019-09-17 09:00] LABS: Bedside Glucose 114 mg/dL (70-110)
--- NOTE | 2019-09-17 10:12 | PCM.PN.OB ---
Subjective: doing well no complaints pain controlled no CP SOB N V ambulating well tolerating po lochia moderate, going well - Physical Exam Vitals/I&O's: Vital Signs Temp Pulse Resp BP Pulse Ox 97.9 F 82 15 101/59 L 96 09/17/19 07:00 09/17/19 07:00 09/17/19 07:00 09/17/19 07:00 09/17/19 03:57 Oxygen Delivery Method Room Air Weight: 181 lb Body Mass Index (BMI) 30.1 Intake and Output for Last 24 Hours 09/15/19 09/16/19 09/17/19 23:59 23:59 23:59 Intake Total 4111.67 / 4111.67 1000 / 1000 Output Total 1100 / 1100 1100 / 1100 Balance 3011.67 / 3011.67 -100 / -100 General: Alert, Oriented x3 Laboratory Results 09/16/19 11:12: POC Glucose 122 H 09/16/19 17:22: POC Glucose 72 09/17/19 05:15: WBC 7.4, RBC 3.64 L, Hgb 10.1 L, Hct 31.0 L, MCV 85.2, MCH 27.7, MCHC 32.6, RDW Std Deviation 42.2, RDW Coeff of Maryuri 13.6, Plt Count 162, MPV 11.5 09/17/19 08:53: POC Glucose 114 H Current Medications Acetaminophen (Tylenol) 1,000 mg PO Q6H [facility] Last Admin: 09/17/19 08:19 Dose: 1,000 mg Documented by: Bisacodyl (Dulcolax) 10 mg RECTAL UD PRN PRN Reason: If no BM Dextrose (D50w Syringe) 0 gm IV X1 PRN; Protocol PRN Reason: Hypoglycemia Diphenhydramine HCl (Benadryl) 25 mg PO Q6H PRN PRN PRN Reason: ITCHING Stop: 09/17/19 11:07 Enoxaparin Sodium (Lovenox) 40 mg SC DAILY [facility] Last Admin: 09/16/19 22:03 Dose: 40 mg Documented by: Glucagon () 1 mg IM .X1 PRN PRN Reason: Hypoglycemia Hydrocortisone (Hytone) 1 applic TOPICAL TID PRN PRN; Protocol PRN Reason: Discomfort Naloxone HCl 4 mg/ Dextrose 504 mls @ 0 mls/hr IV .Q0M PRN; Protocol PRN Reason: To maintain Resp. rate >10 Methylergonovine Maleate (Methergine) 0.2 mg IM X1 PRN PRN Reason: Uterine Atony Nalbuphine HCl (Nubain) 5 mg IV Q3H PRN PRN PRN Reason: ITCHING Stop: 09/17/19 11:07 Naloxone HCl (Narcan) 0.02 mg IV Q1M PRN PRN Reason: RR< 10 AND PT UNRESPONSIVE Naproxen (Naprosyn) 500 mg PO Q8H [facility] Ondansetron HCl (Zofran) 4 mg IV Q4H PRN PRN PRN Reason: Nausea Last Admin: 09/16/19 17:51 Dose: 4 mg Documented by: Oxycodone HCl (Oxyir) 5 - 10 mg PO Q4H PRN PRN PRN Reason: Pain Score 4-10/10 Prochlorperazine Edisylate (Compazine Iv) 10 mg IV Q6H PRN PRN PRN Reason: NAUSEA Senna/Docusate Sodium (Senokot-S, Imani-Colace) 0 tablet PO DAILY [facility] Last Admin: 09/17/19 08:19 Dose: 2 tablet Documented by: Simethicone (Mylicon) 80 mg PO PCHS PRN PRN Reason: Indigestion/stomach pain Sodium Chloride () 5 - 15 ml IV UD PRN PRN Reason: SALINE FLUSH Last Admin: 09/17/19 05:07 Dose: 10 ml Documented by: Medical Necessity - Tobacco Use Smoking Status: Never smoker Assessment/Plan All Active Problems (Last Reviewed 09/13/19 @ 09:50 by Mariama Rosas) Supervision of high risk , antepartum (Acute) (Acute) HEATHER-1 4G/4G genotype (Acute) H/O section (Acute ~07/20/16) History of delivery, currently (Acute) Factor XIII deficiency (Acute) Acute right flank pain (Resolved) 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 routine post care 2. breast feeding- support given 3. rh positive 4. rubella immune diabetes- per insulin pump protocol, good control
--- NOTE | 2019-09-17 10:13 | DCINST_ITS ---
Discharge Diet: No Restrictions Discharge Activity: May Not Drive - for 2 weeks, May not drive while taking narcotic pain medications., May Shower, May Take a Tub Bath - in 7 days May resume sexual activity in: 4-6 weeks Lifting Restrictions: 20 pounds Additional Activity Instructions:: Nothing in the vagina for 4-6 weeks. You may return to work/school in 6 weeks. Call your doctor if your incision/area has: Continuous Slow Oozing, Sudden Increased Bleeding, Increased Pain/ Swelling, Increased Redness, Foul Smelling Discharge Call your doctor if you observe: Fever of 101 or Higher, Using more than one pad per hour - for 2 hours Suture Line Care: Avoid Pulling/Pushing, Avoid Pinching/Bending Cleanse incision/area with: Keep Dressing Clean & Dry Additional Instructions: If you experience any of the following, contact your healthcare provider. * Bleeding that soaks a pad every hour for 2 hours * Fever 100.4 or higher * Unrelieved incision or abdominal pain * Swelling, redness, discharge or bleeding from your incision or episiotomy site * Your incision begins to separate * Problems urinating (including inability to urinate or burning while urinating). * Visual changes * Severe headache * Flu-like symptoms * Pain or redness in one of both of your breasts * Pain, warmth, tenderness or swelling in your legs, especially the calf area * Frequent nausea and vomiting * Symptoms of depression or anxiety If you experience any of the following, call 911 or go to the nearest Emergency Room. * Chest pain * Problems breathing * Seizure activity * Partial or complete paralysis of a body part, slurred speech, weakness or drooping of the face, or a sudden inability to walk or hold your balance Allergies/Adverse Reactions: Allergies lovastatin Allergy (Severe, Verified 09/13/19 09:50) Unknown Medications to take at Discharge blood sugar diagnostic See Dose Instructions .ROUTE .MEDSUPPLY #20 ea 02/23/17 lancets 28 gauge See Dose Instructions .ROUTE .MEDSUPPLY #25 ea 02/23/17 blood-glucose meter See Dose Instructions .ROUTE .MEDSUPPLY #1 ea 06/13/17 pen needle, diabetic 31 gauge x 5/16 See Dose Instructions .ROUTE .MEDSUPPLY #550 ea 06/13/17 insulin aspart U-100 100 unit/mL subcutaneous solution See Rx Instructions SC DAILY #60 ml 03/01/18 vitamin#30 30 mg iron-10 mg iron-folic acid 1 mg-omg3 capsule 1 cap PO DAILY 03/08/19 Follow-Up: Call to make an appointment with your doctor for an incision check in 1-2 weeks. You will also need a 6 week post- follow up appointment. Test results from this visit will be discussed in further detail at your follow- up appointment, if applicable. Please Follow Up With: Vandana Pablo MD - Call to make an appointment for an incision check in 1-2 [phone] When: You will need a post- check in 6 weeks. Primary Care Physician: Charmaine Cronin MD [Primary Care Provider] -
[2019-09-17] MEDS: Enoxaparin 40 MG/0.4 ML Syringe SC (10:36)
[2019-09-17] MEDS: Naproxen 250 MG Tablet 500 MG PO ×2 (10:44→19:35)
--- NOTE | 2019-09-17 13:59 | NURSING ---
pt did own blood sugar and was 108. covered with pump insulin of 6units novolog.
[2019-09-17 14:00] VITALS: BP 105/65; PULSE 75; RESP 16; TEMP 36.4; O2SAT 97
--- NOTE | 2019-09-17 18:02 | NURSING ---
pt blood sugar via her pump 145. wch was 157. pt gave herself 3.3 units novolog via pump.
[2019-09-17 18:06] LABS: Bedside Glucose 157 mg/dL (70-110)
[2019-09-17 19:41] VITALS: BP 111/72; PULSE 68; RESP 16; TEMP 36.9; O2SAT 97
--- NOTE | 2019-09-17 21:11 | NURSING ---
bgt result 90 to confirm pt own insulin pump.
[2019-09-17 21:15] LABS: Bedside Glucose 90 mg/dL (70-110)
[2019-09-18] MEDS: Acetaminophen 500 MG Tablet 1000 MG PO ×2 (02:59→09:35)
[2019-09-18] MEDS: Naproxen 250 MG Tablet 500 MG PO ×2 (03:00→12:31)
[2019-09-18 03:49] VITALS: BP 119/74; PULSE 75; RESP 16; TEMP 36.7
[2019-09-18] MEDS: Senna/Docusate Sodium 1 Tablet PO (03:55)
[2019-09-18 08:40] LABS: Bedside Glucose 103 mg/dL (70-110)
[2019-09-18] MEDS: Enoxaparin 40 MG/0.4 ML Syringe SC (09:36)
[2019-09-18 10:05] VITALS: BP 111/66; PULSE 90; RESP 16; TEMP 36.7
--- NOTE | 2019-09-18 11:03 | PN.OBGYN_ITS ---
Subjective: doing well no complaints pain controlled no CP SOB N V ambulating well tolerating po lochia moderate, going well - Physical Exam Vitals/I&O's: Vital Signs Temp Pulse Resp BP Pulse Ox 98.0 F 90 16 111/66 97 09/18/19 10:05 09/18/19 10:05 09/18/19 10:05 09/18/19 10:05 09/17/19 19:41 Oxygen Delivery Method Room Air Weight: 181 lb Body Mass Index (BMI) 30.1 Intake and Output for Last 24 Hours 09/16/19 09/17/19 09/18/19 23:59 23:59 23:59 Intake Total 4111.67 / 4111.67 1000 / 1000 Output Total 1100 / 1100 1100 / 1100 Balance 3011.67 / 3011.67 -100 / -100 General: Alert, Oriented x3 Laboratory Results 09/17/19 17:44: POC Glucose 157 H 09/17/19 21:09: POC Glucose 90 09/18/19 08:32: POC Glucose 103 Current Medications Acetaminophen (Tylenol) 1,000 mg PO Q6H [facility] Last Admin: 09/18/19 09:35 Dose: 1,000 mg Documented by: Bisacodyl (Dulcolax) 10 mg RECTAL UD PRN PRN Reason: If no BM Dextrose (D50w Syringe) 0 gm IV X1 PRN; Protocol PRN Reason: Hypoglycemia Enoxaparin Sodium (Lovenox) 40 mg SC DAILY [facility] Last Admin: 09/18/19 09:36 Dose: 40 mg Documented by: Glucagon () 1 mg IM .X1 PRN PRN Reason: Hypoglycemia Hydrocortisone (Hytone) 1 applic TOPICAL TID PRN PRN; Protocol PRN Reason: Discomfort Naloxone HCl 4 mg/ Dextrose 504 mls @ 0 mls/hr IV .Q0M PRN; Protocol PRN Reason: To maintain Resp. rate >10 Methylergonovine Maleate (Methergine) 0.2 mg IM X1 PRN PRN Reason: Uterine Atony Naloxone HCl (Narcan) 0.02 mg IV Q1M PRN PRN Reason: RR< 10 AND PT UNRESPONSIVE Naproxen (Naprosyn) 500 mg PO Q8H [facility] Last Admin: 09/18/19 03:00 Dose: 500 mg Documented by: Ondansetron HCl (Zofran) 4 mg IV Q4H PRN PRN PRN Reason: Nausea Last Admin: 09/16/19 17:51 Dose: 4 mg Documented by: Oxycodone HCl (Oxyir) 5 - 10 mg PO Q4H PRN PRN PRN Reason: Pain Score 4-10/10 Prochlorperazine Edisylate (Compazine Iv) 10 mg IV Q6H PRN PRN PRN Reason: NAUSEA Senna/Docusate Sodium (Senokot-S, Imani-Colace) 0 tablet PO DAILY [facility] Last Admin: 09/18/19 03:55 Dose: 2 tablet Documented by: Simethicone (Mylicon) 80 mg PO PCHS PRN PRN Reason: Indigestion/stomach pain Last Admin: 09/17/19 14:03 Dose: 80 mg Documented by: Sodium Chloride () 5 - 15 ml IV UD PRN PRN Reason: SALINE FLUSH Last Admin: 09/17/19 05:07 Dose: 10 ml Documented by: Medical Necessity - Tobacco Use Smoking Status: Never smoker Assessment/Plan All Active Problems (Last Reviewed 09/13/19 @ 09:50 by Mariama Rosas) Supervision of high risk , antepartum (Acute) (Acute) HEATHER-1 4G/4G genotype (Acute) H/O section (Acute ~07/20/16) History of delivery, currently (Acute) Factor XIII deficiency (Acute) Acute right flank pain (Resolved) 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 routine post care 2. breast feeding- support given 3. rh positive 4. rubella immune diabetes- per insulin pump protocol, good control
[2019-09-18 15:10] LABS: Bedside Glucose 98 mg/dL (70-110)
[2019-09-18 15:15] VITALS: BP 126/83; PULSE 88; RESP 16; TEMP 36.7
--- NOTE | 2019-09-22 16:48 | NURSING ---
LE: pharmacy technician assistant: Anahi Edwards CRNA for C/S
== END 2019-09-18 15:15 | disposition home or self-care (01) | DRG 783 ==
PROVIDERS: Admitting Provider Obstetrics & Gynecology; PCP Internal Medicine; Referring Provider Obstetrics & Gynecology; Visit Provider Obstetrics & Gynecology
PROC: (CPT 59514; principal; 2019-09-16 07:15)
DX: O34.211 Maternal care for low transverse scar from previous cesarean delivery (principal); O24.02 Pre-existing type 1 diabetes mellitus, in childbirth; O99.12 Other diseases of the blood and blood-forming organs and certain disorders involving the immune mechanism complicating childbirth; D68.2 Hereditary deficiency of other clotting factors; Z30.2 Encounter for sterilization; E10.9 Type 1 diabetes mellitus without complications; Z79.4 Long term (current) use of insulin; Z96.41 Presence of insulin pump (external) (internal); Z3A.38 38 weeks gestation of pregnancy; Z37.0 Single live birth
CPT/HCPCS: 82962; 85025; 85027; 86850; 86900; 86901; 88302; 99218; G2023; J7120; A4216; G0378; J2405

== ENCOUNTER → 2020-01-14 08:01 | Outpatient (CLI) | payer BC, SELFPAY ==
[2019-10-31 11:34] VITALS: BMI 30.1
[2020-01-14 09:09] LABS: Hemoglobin A1c 7.1 % (3.8-5.6); Microalbumin,Random Urine 11.6 mg/L (NO RANGE EST.); Microalbumin:Creatinine Ratio 11.6 mg/g CRE (<30 mg/g CRE)
[2020-01-14 09:41] LABS: ALB/GLOB Ratio 1.1 RATIO (0.9-2.4); AST(SGOT) 11 U/L (15-37); Alanine Aminotransfer ALT/SGPT 20 U/L (13-56); Albumin, Serum 3.9 g/dL (3.2-5.0); Alkaline Phosphatase 98 U/L (45-117); Anion Gap 6 (5-15); BUN 12 mg/dL (7-18); BUN/Creat Ratio 15.3 RATIO (10-20); Calcium,Total 9.3 mg/dL (8.5-10.1); Chloride 107 mmol/L (98-107); Cholesterol 172 mg/dL (200); Creatinine, Serum 0.78 mg/dL (0.55-1.02); EST Glomerular Filtration Rate 92 mL/min (>60); Est Glom Filt Rate - Afr Amer 111 mL/min (>60); Globulin 3.6 g/dL (2.2-4.2); Glucose 132 mg/dL (74-106); High Density Lipoprotein 91 mg/dL; Potassium 4.1 mmol/L (3.5-5.1); Protein, Total 7.5 g/dL (6.4-8.2); Sodium Level 140 mmol/L (136-145); Thyroid Stim Hormone (TSH) 0.29 uIU/mL (0.358-3.74); Triglycerides 29 mg/dL; Very Low Density Lipoprotein 6 mg/dL (5-40)
== END ==
PROVIDERS: PCP Internal Medicine; Referring Provider Internal Medicine Endocrinology, Diabetes & Metabolism; Visit Provider Internal Medicine Endocrinology, Diabetes & Metabolism
DX: E10.9 Type 1 diabetes mellitus without complications (principal)
CPT/HCPCS: 36415; 80053; 80061; 82043; 82570; 83036; 84443

== ENCOUNTER → 2020-03-05 13:43 | Outpatient (CLI) | payer BC, SELFPAY ==
[2020-03-05 13:15] VITALS: BMI 24.6
[2020-03-05 15:27] LABS: Absolute Neutrophil Count 3.2 X10^3/uL (2.0-7.7); Basophil# 0.02 X10^3/uL; Basophil% 0.4 % (0-1); Eosinophil# 0.08 X10^3/uL; Eosinophils% 1.5 % (0-5); Hematocrit 41.6 % (37-47); Hemoglobin 13.4 g/dL (12.0-15.0); Lymphocyte % 30.7 % (19-41); Mean Corp Hgb Conc 32.2 g/dL (32-36); Mean Corpuscular Hgb 26.9 pg (27.0-32.0); Mean Corpuscular Volume 83.5 fL (81-99); Mean Platelet Vol. 11.1 fl (6.2-12.0); Monocyte# 0.35 X10^3/uL; Monocyte% 6.7 % (0-10); NRBC Flagged by Analyzer 0 % (0-5); Neutrophil # 3.15 X10^3/uL (2.7-7.7); Neutrophil % 60.5 % (47-70); Platelet Count 276 K/mm3 (150-450); RBC Distribution Width CV 13.6 % (11.6-14.6); RBC Distribution Width SD 41.4 fl (35.1-43.9); Red Blood Count 4.98 M/mm3 (4.2-5.4); White Blood Count 5.2 K/mm3 (4.4-11.0)
[2020-03-05 15:47] LABS: T4 Free Direct 1.03 ng/dL (0.76-1.46); Thyroid Stim Hormone (TSH) 1.23 uIU/mL (0.358-3.74)
== END ==
PROVIDERS: PCP Internal Medicine; Referring Provider Internal Medicine; Visit Provider Internal Medicine
DX: E10.9 Type 1 diabetes mellitus without complications (principal); R94.6 Abnormal results of thyroid function studies
CPT/HCPCS: 36415; 83036; 84439; 84443; 85025

== ENCOUNTER 2021-05-06 09:41 | Outpatient (CLI) | payer OTHER, SELFPAY ==
[2021-05-06 12:38] LABS: Vitamin D,25 Hydroxy 31.2 ng/mL
[2021-05-06 12:46] LABS: ALB/GLOB Ratio 1.1 RATIO (0.9-2.4); AST(SGOT) 10 U/L (15-37); Alanine Aminotransfer ALT/SGPT 17 U/L (13-56); Albumin, Serum 3.9 g/dL (3.2-5.0); Alkaline Phosphatase 71 U/L (45-117); Anion Gap 4 (5-15); BUN 13 mg/dL (7-18); BUN/Creat Ratio 14.9 RATIO (10-20); Chloride 106 mmol/L (98-107); Cholesterol 170 mg/dL (200); Creatinine, Serum 0.87 mg/dL (0.55-1.02); EST Glomerular Filtration Rate 80 mL/min (>60); Est Glom Filt Rate - Afr Amer 97 mL/min (>60); Globulin 3.7 g/dL (2.2-4.2); Glucose 175 mg/dL (74-106); High Density Lipoprotein 82 mg/dL; Potassium 4.4 mmol/L (3.5-5.1); Protein, Total 7.6 g/dL (6.4-8.2); Sodium Level 137 mmol/L (136-145); Thyroid Stim Hormone (TSH) 1.56 uIU/mL (0.358-3.74); Triglycerides 56 mg/dL; Very Low Density Lipoprotein 11 mg/dL (5-40)
== END 2021-05-06 23:59 | disposition home or self-care (01) ==
LOC: BIMLAB 09:42
PROVIDERS: PCP Internal Medicine; Referring Provider Internal Medicine Endocrinology, Diabetes & Metabolism; Visit Provider Internal Medicine Endocrinology, Diabetes & Metabolism
DX: E10.649 Type 1 diabetes mellitus with hypoglycemia without coma (principal); E11.3293 Type 2 diabetes mellitus with mild nonproliferative diabetic retinopathy without macular edema, bilateral; E55.9 Vitamin D deficiency, unspecified; Z96.41 Presence of insulin pump (external) (internal); Z46.81 Encounter for fitting and adjustment of insulin pump
CPT/HCPCS: 36415; 80053; 80061; 82306; 84443

== ENCOUNTER → 2022-01-17 | Outpatient (CLI) | payer OTHER, SELFPAY ==
[2022-01-25 11:22] LABS: HPV APTIMA, High Risk Negative (Negative)
== END | disposition home or self-care (01) ==
LOC: LABSPEC 16:41
PROVIDERS: PCP Internal Medicine; Visit Provider Obstetrics & Gynecology
DX: Z12.4 Encounter for screening for malignant neoplasm of cervix (principal)
CPT/HCPCS: 87624; 88175; G0145

== ENCOUNTER → 2022-07-23 | Outpatient (CLI) | payer OTHER, SELFPAY ==
[2022-07-23 09:22] LABS: AST(SGOT) 15 U/L (15-37); Alanine Aminotransfer ALT/SGPT 17 U/L (13-56); Albumin, Serum 3.5 g/dL (3.2-5.0); Alkaline Phosphatase 72 U/L (45-117); Anion Gap 9 (5-15); BUN 15 mg/dL (7-18); BUN/Creat Ratio 21.2 RATIO (10-20); Calcium,Total 8.3 mg/dL (8.5-10.1); Chloride 106 mmol/L (98-107); Cholesterol 152 mg/dL (200); Creatinine, Serum 0.71 mg/dL (0.55-1.02); EST Glomerular Filtration Rate 102 mL/min (>60); Est Glom Filt Rate - Afr Amer 123 mL/min (>60); Globulin 3.6 g/dL (2.2-4.2); Glucose 112 mg/dL (74-106); High Density Lipoprotein 77 mg/dL; Potassium 3.9 mmol/L (3.5-5.1); Protein, Total 7.1 g/dL (6.4-8.2); Sodium Level 140 mmol/L (136-145); Triglycerides 40 mg/dL; Very Low Density Lipoprotein 8 mg/dL (5-40)
[2022-07-23 09:33] LABS: Microalbumin,Random Urine 8.3 mg/L (NO RANGE EST.); Microalbumin:Creatinine Ratio 8.2 mg/g CRE (<30 mg/g CRE)
[2022-07-25 08:22] LABS: Vitamin D,25 Hydroxy 41.6 ng/mL
== END | disposition home or self-care (01) ==
LOC: LAB 07:42
PROVIDERS: PCP Internal Medicine; Referring Provider Internal Medicine Endocrinology, Diabetes & Metabolism; Visit Provider Internal Medicine Endocrinology, Diabetes & Metabolism
DX: E11.3293 Type 2 diabetes mellitus with mild nonproliferative diabetic retinopathy without macular edema, bilateral (principal); Z96.41 Presence of insulin pump (external) (internal); Z46.81 Encounter for fitting and adjustment of insulin pump; E55.9 Vitamin D deficiency, unspecified
CPT/HCPCS: 36415; 80053; 80061; 82043; 82306; 82570; 84443

== ENCOUNTER → 2023-05-12 | Outpatient (CLI) | payer OTHER, SELFPAY ==
--- NOTE | 2023-05-12 08:45 | US_ITS ---
STUDY: ULTRASOUND BREAST - LEFT REASON FOR EXAM: Female, 33 years old. Left breast pain during menses. TECHNIQUE: Axial and longitudinal images of the LEFT breast were performed with a high resolution ultrasound transducer. # OF IMAGES: 17 COMPARISON: Comparison is made with prior mammogram done earlier today. FINDINGS: LEFT Breast: The upper outer aspect of the left breast was examined with ultrasound. Dense fibroglandular tissue is seen. No sonographic abnormality is present. US/Breast Limited Unilateral IMPRESSION: No sonographic abnormality is seen at the 12 to 1:00 position of the left breast. ASSESSMENT CATEGORY: BIRADS Category 1: Negative. A letter regarding these results will be sent to the patient by the facility within 30 days. Electronically Signed: Trey Houser MD at 9:45 EDT ,
--- NOTE | 2023-05-12 08:45 | BI_ITS ---
MAMMOGRAPHY - BILATERAL DIAGNOSTIC REASON FOR EXAM: Female, 33 years old. Left upper breast lump and pain during menstruation. PERTINENT HISTORY: Mother with breast cancer. TECHNIQUE: Digital bilateral breast nas (3D mammographic acquisition) in the CC and MLO projections. 2-D mediolateral oblique (MLO) and craniocaudad (CC) views of both breasts were obtained. CAD: Full Field Digital Mammography with Computer Added Detection was performed. COMPARISON: None. Baseline examination. FINDINGS: Breast Composition: The breasts are extremely dense, which lowers the sensitivity of mammography. There are no dominant masses or suspicious calcifications. No other significant abnormalities are identified. BI/DIAG MAMM W/CAD, BILAT IMPRESSION: Negative diagnostic mammogram. With the patient''s history of a palpable lump in the upper lateral aspect of the left breast, correlation with ultrasound is recommended. ASSESSMENT CATEGORY: BIRADS Category 0: Incomplete. Need additional imaging evaluation. A letter regarding these results will be sent to the patient by the facility within 30 days. Approximately 10% of breast cancers are not detected by mammography. A normal mammogram should not delay biopsy of a clinically suspicious abnormality. Electronically Signed: Trey Houser MD at 9:53 EDT ,
== END | disposition home or self-care (01) ==
PROVIDERS: PCP Internal Medicine; Referring Provider Advanced Practice Midwife; Visit Provider Advanced Practice Midwife
DX: N64.4 Mastodynia (principal); N63.20 Unspecified lump in the left breast, unspecified quadrant
CPT/HCPCS: 76642; 77062; 77066; G0279

== ENCOUNTER → 2023-07-19 | Outpatient (CLI) | payer OTHER, SELFPAY ==
[2023-07-19 07:58] LABS: Estradiol 145.9 pg/mL; Follicle Stimulating Hormone 1.9 mIU/mL; hCG Titer Quant., Serum < 1 mIU/mL (1-3)
[2023-07-19 07:59] LABS: AST(SGOT) 13 U/L (15-37); Alanine Aminotransfer ALT/SGPT 14 U/L (13-56); Albumin, Serum 3.5 g/dL (3.2-5.0); Alkaline Phosphatase 78 U/L (45-117); Anion Gap 7 (5-15); BUN 15 mg/dL (7-18); BUN/Creat Ratio 23.2 RATIO (10-20); Calcium,Total 8.8 mg/dL (8.5-10.1); Chloride 107 mmol/L (98-107); Cholesterol 155 mg/dL (200); Creatinine, Serum 0.65 mg/dL (0.55-1.02); EST Glomerular Filtration Rate 112 mL/min (>60); Est Glom Filt Rate - Afr Amer 136 mL/min (>60); Globulin 3.6 g/dL (2.2-4.2); Glucose 139 mg/dL (74-106); High Density Lipoprotein 74 mg/dL; Potassium 3.8 mmol/L (3.5-5.1); Protein, Total 7.1 g/dL (6.4-8.2); Sodium Level 137 mmol/L (136-145); Thyroid Stim Hormone (TSH) 2.54 uIU/mL (0.358-3.74); Triglycerides 52 mg/dL; Very Low Density Lipoprotein 10 mg/dL (5-40)
[2023-07-25 13:08] LABS: 17-Hydroxyprogesterone 95 ng/dL (.)
[2023-07-25 19:07] LABS: Testosterone Free 1.1 pg/mL (0.0-4.2)
== END | disposition home or self-care (01) ==
LOC: LAB 06:19
PROVIDERS: Internal Medicine Endocrinology, Diabetes & Metabolism; PCP Internal Medicine; Referring Provider Obstetrics & Gynecology; Visit Provider Obstetrics & Gynecology
DX: N93.9 Abnormal uterine and vaginal bleeding, unspecified (principal); E10.9 Type 1 diabetes mellitus without complications; Z96.41 Presence of insulin pump (external) (internal)
CPT/HCPCS: 36415; 80053; 80061; 82627; 82670; 83001; 83498; 84402; 84443; 84702; 82626

== ENCOUNTER → 2024-04-09 | Outpatient (CLI) | payer OTHER, SELFPAY | END | disposition home or self-care (01) | LOC: BWCLAB 10:21 | PROVIDERS: PCP Internal Medicine; Referring Provider Nurse Practitioner Family; Visit Provider Nurse Practitioner Family | DX: Z13.79 Encounter for other screening for genetic and chromosomal anomalies (principal); N64.4 Mastodynia; Z80.3 Family history of malignant neoplasm of breast; Z80.0 Family history of malignant neoplasm of digestive organs | CPT/HCPCS: 36415 ==

== ENCOUNTER → 2024-07-23 | Outpatient (CLI) | payer OTHER, SELFPAY ==
[2024-07-23 10:56] LABS: Microalbumin,Random Urine < 12.0 mg/L (NO RANGE EST.); Microalbumin:Creatinine Ratio UNABLE TO CALCULATE mg/g CRE
--- OUTSIDE RECORDS SUMMARY | 2024-07-23 20:30 | XMS RPT_ITS | CCD ---
Author Organization [facility] Care Team Providers Care Marketing Production Coordinator Name Role Phone Vandana Pablo MD Unavailable [phone] Esme Contreras LPN Unavailable Unavailable Esme Contreras LPN Unavailable Unavailable Dennis TODD, Heather Armenta Unavailable Belen BURNETT, Jeri Dahl Unavailable Unavailable Brenda GLUER MACHINE OPERATOR, Naima Blair Unavailable Lenard LEE, Marianna F Unavailable Unavailabl Vandana Dyson MD Unavailable [phone] Dr. Andrea Cronin Primary Care Provider [phone] Dr. Andrea Cronin Referring Provider [phone] Dr. Edmundo Morrell Attending Provider KAILEY THAPA Attending Unava ilANDREA Suresh Primary Care Unav ailable Dr. Andrea Cronin Primary Care Provider [phone] Dr. Andrea Cronin Referring Provider [phone] Dr. Edmundo Morrell Attending Provider Dr. Vandana Pablo Attending Provider [phone] Dr. Andrea Cronin Primary Care Provider [phone] Dr. Andrea Cronin Referring Provider [phone] Dr. Edmundo Morrell Attending Provider Dr. Andrea Cronin Primary Care Provider [phone] Dr. Andrea Cronin Referring Provider [phone] Edmundo Morrell Attending Provider Dr. Vandana Pablo Attending Provider [phone] MELISSA Lynch Attending Provider [phone] Chang MAMMALOGY TEACHER.MACHINE MAINTENANCE MECHANIC, [facility] Primary Care Provider Linsey GUERRA, Lou Unavailable Unavailable CHANG, LORA Referring Unavailable CHANG, LORA Primary Care Unavailable CHANG, LORA Attending Unavailable ERASMOESA JUAN Primary Care Unavailable Mehrdad BAEZA, Dr. Montano Primary Care Provider Mehrdad BAEZA, Dr. Montano Referring Provider [phone] Dr. Edmundo Morrell MD Attending Provider Hoa GLUER MACHINE OPERATOR-CRaquel Attending Provider [phone] Hoa GLUER MACHINE OPERATOR-C, Raquel Referring Provider [phone] Raquel Camara Attending Unavailable Raquel Camara Referring Unavailable Oleghe, Efewongbe Primary Care Unavailable Raquel Camara Attending Unavailable Raquel Camara Referring Unavailable Chang GLUER MACHINE OPERATOR, [facility] Primary Care Unavailable Edmundo Morrell Attending Unavailable Edmundo Morrell Referring Unavailable Chang GLUER MACHINE OPERATOR, [facility] Primary Care Unavailable Edmundo Morrell Attending Unavailable Oleghe, Efewongbe Referring Unavailable Oleghe, Efewongbe Primary Care Unavailable Raquel Camara Attending Unavailable Oleghe, Efewongbe Referring Unavailable Oleghe, Efewongbe Primary Care Unavailable Edmundo Morrell Attending Unavailable Oleghe, Efewongbe Referring Unavailable Chang GLUER MACHINE OPERATOR, [facility] Primary Care Unavailable Raquel Camara Attending Unavailable Oleghe, Efewongbe Primary Care Unavailable Oleghe, Efewongbe Referring Unavailable Edmundo Morrell Attending Unavailable Oleghe, Efewongbe Primary Care Unavailable Oleghe, Efewongbe Referring Unavailable Allergies Allergy Classification Reported Allergen(s) Allergy Type Date of Onset Reaction(s) Facility (13 sources) lovastatin; 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: [LOVASTATIN] drug allergy 02-04-20 09 sleep intolerance [facility] Work Phone: (13 sources) Lovastatin Drug Allergy 02-04-20 09 Unknown [facility] (1 source) CT: IODINATED CONTRAST- ORAL AND IV DYE; 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: [CT: IODINATED CONTRAST- ORAL AND IV DYE] Propensity to adverse reactions to drug (disorder) 06-06-19 [facility] Repository (2 sources) Triiodobenzoic Acids Allergy to substance 05-05-19 Vomiting [facility] (8 sources) Iodine; 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: [IODINE] Drug Allergy 03-12-19 Vomiting [facility] (1 source) Lovastatin Drug Allergy 07-24-19 [facility] Repository (1 source) Iodinated Contrast Media Drug allergy (disorder) 07-24-19 [facility] Repository Medications Current Medications Medication Drug Class(es) Dates Sig (Normalized) Sig (Original) FLUoxetine 20 mg oral capsule (20 sources) Serotonin Reuptake Inhibitor Start: 04-09-2024 End: 10-09-2024 take 1 capsule by mouth once daily in the morning FLUoxetine (PROZAC) 20 mg capsule Indications: GLENNA (generalized anxiety disorder) Take 1 capsule by mouth once daily. Patient should start on April 12, 2024. 90 capsule 1 03/21/2024 7:32 AM EST 04/12/2024 10/09/2024 Active Start: 03-12-2024 End: 04-11-2024 take 1 capsule by mouth once daily FLUoxetine (PROZAC) 10 mg capsule Indications: GLENNA (generalized anxiety disorder) TAKE 1 CAPSULE BY MOUTH EVERY DAY 90 capsule 1 04/03/2024 Active Start: 05-06-2021 End: 01-23-2024 take 1 capsule by mouth once daily Fluoxetine 20 mg capsule Discontinued 20 mg PO DAILY September 18, 2023 7:26am January 23, 2024 9:27am Start: 12-08-2020 End: 10-19-2021 Fluoxetine 10 mg capsule Discontinued 10 mg PO December 07, 2020 11:00pm October 19, 2021 8:04am glucagon 3 mg nasal powder (20 sources) Antihypoglycemic Agent Start: 06-08-2020 End: 01-23-2024 Glucagon (Baqsimi) 3 mg/actuation spray,non-aerosol Active 3 mg INTRANASAL ONCE 2 January 23, 2024 10:00am as a single dose; may repeat once in 15 minutes if no response Start: 09-24-2008 glucagon,human recombinant(GLUCAGON EMERGENCY 1 MG INJECTION KIT) use as directed, call if used 2 1 09/24/2008 Active insulin lispro 100 unt/ml injectable solution (1 source) Insulin Analog Start: 04-30-2024 insulin lispro (HUMALOG U-100 INSULIN) 100 unit/mL injection Indications: Type 1 diabetes mellitus without complication (HCC) 60 units daily for insulin pump use. 60 mL 3 04/30/2024 Active insulin tug boat engineer cart,aut,G6/7,cntr (OMNIPOD 5 G6-G7 INTRO KT,GEN5,) crtg (5 sources) Start: 03-15-2024 insulin tug boat engineer cart,aut,G6/7,cntr (OMNIPOD 5 G6-G7 INTRO KT,GEN5,) crtg As directed 1 Each 04/12/2024 12:29 PM EST 03/15/2024 Active Start: 03-15-2024 insulin tug boat engineer ca rt,aut,G6/7,cntr (OMNIPOD 5 G6-G7 INTRO KT,GEN5,) crtg As directed 1 Each 03/15/2024 Active Insulin Pump Cart,Auto,Bt,G6 /7 (Omnipod 5 G6-G7 Pods (Gen 5)) cartridge (2 sources) Start: 04-12-2024 Insulin Pump C art,Auto,Bt,G6/7 (Omnipod 5 G6-G7 Pods (Gen 5)) cartridge Active 0 .Route April 12, 2024 4:20pm As directed Start: 04-12-2024 End: 04-12-2024 Insulin Pump Cart,Auto,Bt,G6 /7 (Omnipod 5 G6-G7 Pods (Gen 5)) cartridge Discontinued 0 .Route April 12, 2024 12:00am April 12, 2024 4:21pm As directed insulin pump cart,auto,BT,G6 /7 (OMNIPOD 5 G6-G7 PODS, GEN 5,) crtg (3 sources) Start: 04-12-2024 insulin pump c art,auto,BT,G6/7 (OMNIPOD 5 G6-G7 PODS, GEN 5,) crtg USE DIRECTED 30 Each 1 04/12/2024 Active Completed/Discontinued Medications Medication Drug Class(es) Dates Sig (Normalized) Sig (Original) 1.1 ml HYDROXYprogesterone caproate (long term) 250 mg/ml auto-injector (6 sources) Start: 04-04-2019 End: 04-04-2019 Hydroxyprogest(Pf )(Preg Presv) ([address] [place] (Pf)) 275 mg/1.1 mL auto-injector Discontinued 275 mg SC EVERY WEEK 1.1 April 04, 2019 12:00am April 04, 2019 3:28pm acetaminophen 325 mg / oxyCODONE hydrochloride 5 mg oral tablet (13 sources) Opioid Agonist Start: 09-17-2019 End: 09-24-2019 Oxycodone-Acetami nophen 1 TABLET tablet Discontinued 1 - 2 {tbl} PO EVERY 6 HOURS NEEDED as needed for Pain 15 September 17, 2019 September 22, 2019 11:00pm September 23, 2019 11:02pm Start: 09-17-2019 End: 09-24-2019 take 1 tablet by mouth every six hours as needed Oxycodone-Acetaminophen Discontinued 1 - 2 TABLET PO EVERY 6 HOURS NEEDED 15 September 17, 2019 September 24, 2019 12:02am Start: 07-24-2016 End: 2017 Oxycodone-Acetaminophen 1 TA BLET tablet Discontinued 1 - 2 {tbl} PO EVERY 6 HOURS NEEDED as needed for Pain 40 July 23, 2016 11:00pm 2017 3:13pm Start: 07-24-2016 End: 2017 take 1 tablet by mouth every six hours as needed Oxycodone-Acetaminophen Discontinued 1 - 2 TABLET PO EVERY 6 HOURS NEEDED July 24, 2016 12:00am 2017 4:13pm Start: 04-07-2015 End: 03-12-2024 take 1-2 tablets by mouth every four hours as needed oxyCODONE-acetaminophen (PERCOCET) 5-325 mg tablet Take 1-2 tablets by mouth every 4 hours as needed. 15 tablet 0 04/07/2015 03/12/2024 Discontinued aspirin 81 mg delayed release oral tablet (20 sources) Nonsteroidal Anti-inflammatory Drug Start: 07-10-2017 End: 03-12-2024 take 1 tablet by mouth once daily Aspirin (Adult Aspirin Regimen) 81 mg tablet,delayed release (DR/EC) Discontinued 81 mg PO daily July 09, 2017 11:00pm May 31, 2018 12:04pm Start: 07-20-2016 End: 07-24-2016 take 1 tablet by mouth once daily Aspirin 81 MG Tab.Chew Discontinued 81 mg PO DAILY@0800 July 19, 2016 11:00pm July 24, 2016 10:33am Blood-Glucose Meter (Freesty le Lite Meter) kit (6 sources) Start: 06-13-2017 End: 10-31-2019 Blood-Glucose Meter (Freesty le Lite Meter) kit Discontinued 0 .ROUTE .MEDSUPPLY June 13, 2017 9:24am October 31, 2019 11:34am As directed Start: 06-13-2017 End: 10-31-2019 Blood-Glucose Meter (Freesty le Lite Meter) kit Discontinued 0 .ROUTE .MEDSUPPLY June 13, 2017 12:00am October 31, 2019 11:34am As directed Start: 06-13-2017 End: 10-31-2019 Blood-Glucose Meter (Freesty le Lite Meter) kit Discontinued 0 .ROUTE .MEDSUPPLY June 12, 2017 11:00pm October 31, 2019 10:34am As directed Breast Pump Device (1 source) Start: 06-01-2016 End: 03-12-2024 Breast Pump Device Indications: 28 weeks gestation of As directed 1 Device 06/01/2016 03/12/2024 Discontinued cephalexin 500 mg oral capsule (18 sources) Cephalosporin Antibacterial Start: 07-22-2020 End: 07-29-2020 take 1 capsule by mouth every twelve hours Cephalexin 500 mg capsule Discontinued 500 mg PO Q12H 14 July 21, 2020 11:00pm July 27, 2020 11:00pm July 28, 2020 11:01pm Start: 11-12-2019 End: 11-19-2019 take 1 capsule by mouth every twelve hours Cephalexin (Keflex) 500 mg capsule Discontinued 500 mg PO Q12H 14 November 11, 2019 11:00pm November 17, 2019 11:00pm November 18, 2019 11:02pm Start: 09-29-2016 End: 10-09-2016 take 1 tablet by mouth four times daily KEFLEX 500 MG CAPS One tablet by mouth four times daily CEPHALEXIN [id number] Heather Thapa NP cholecalciferol 0.05 mg oral capsule (6 sources) Vitamin D Start: 03-05-2020 End: 01-15-2021 take 1 capsule by mouth once daily Cholecalciferol (Vitamin D3) 50 mcg (2,000 unit) capsule Discontinued 150 ug PO DAILY March 05, 2020 12:00am January 15, 2021 9:45am dicloxacillin 500 mg oral capsule (12 sources) Penicillin-class Antibacterial Start: 09-17-2020 End: 10-01-2020 take 1 capsule by mouth every six hours Dicloxacillin 500 mg capsule Discontinued 500 mg PO EVERY 6 HOURS 56 14 September 16, 2020 11:00pm September 29, 2020 11:00pm September 30, 2020 11:01pm docusate sodium 100 mg oral capsule (6 sources) Start: 07-24-2016 End: 2017 take 1 capsule by mouth twice daily as needed for constipation Docusate Sodium 100 MG capsule Discontinued 100 mg PO TWICE DAILY NEEDED as needed for Constipation 60 July 23, 2016 11:00pm 2017 3:13pm enalapril maleate 2.5 mg oral tablet (6 sources) Angiotensin Converting Enzyme Inhibitor Start: 02-27-2017 End: 05-31-2018 take 1 tablet by mouth once daily Enalapril Maleate 2.5 mg tablet Discontinued 2.5 mg PO daily 90 February 27, 2017 12:00am May 31, 2018 12:05pm 0.4 ml enoxaparin sodium 100 mg/ml prefilled syringe (20 sources) Low Molecular Weight Heparin Start: 01-16-2019 End: 03-22-2019 Enoxaparin (Lovenox) 40 mg/0.4 mL syringe Discontinued 40 mg SC DAILY January 16, 2019 12:00am March 22, 2019 2:40pm End: 11-01-2016 LOVENOX 40 MG/0.4ML SOLN twi ce daily ENOXAPARIN SODIUM [id number] Vandana Pablo MD LOVENOX 40 MG/0. 4ML SOLN twice daily ENOXAPARIN SODIUM [id number] Migel Garcia End: 11-01-2016 LOVENOX 40 MG/0.4ML SOLN twi ce daily ENOXAPARIN SODIUM [id number] Vandana Pablo MD LOVENOX 40 MG/0. 4ML SOLN twice daily ENOXAPARIN SODIUM [id number] Migel Eason Jose LOVENOX 40 MG/0. 4ML SOLN twice daily ENOXAPARIN SODIUM [id number] Migel Garcia GLUCOSE BLOOD (11 sources) FREESTYLE LITE T EST STRP Use as directed to check blood glucose level. GLUCOSE BLOOD [id number] Marianna Weinberg LPN GLUCOSE BLOOD (1 source) FREESTYLE LITE T EST STRP Use as directed to check blood glucose level. GLUCOSE BLOOD [id number] Marianna Weinberg MOLECULAR SPECTROSCOPIST ibuprofen 800 mg oral tablet (6 sources) Nonsteroidal Anti-inflammatory Drug Start: 7 End: 8 take 1 tablet by mouth three times daily as needed for pain Ibuprofen 800 MG tablet Discontinued 800 mg PO 3 TIMES DAILY NEEDED as needed for Pain 60 July 23, 2016 11:00pm 2017 3:13pm INSULIN DISPOSABLE PUMP (11 sources) OMNIPOD Use as directed. INSULIN DISPOSABLE PUMP [id number] Marianna Weinberg MOLECULAR SPECTROSCOPIST OMNIPOD MISC Use as directed. INSULIN DISPOSABLE PUMP [id number] Marianna Weinberg LPN INSULIN DISPOSABLE PUMP (1 source) OMNIPOD MISC Use as directed. INSULIN DISPOSABLE PUMP [id number] Marianna Weinberg MOLECULAR SPECTROSCOPIST 3 ml insulin glargine 100 unt/ml pen injector (12 sources) Insulin Analog Start: 07-10-2017 End: 02-28-2018 Insulin Glargine (Lantus Solostar U-100 Insulin) 100 unit/mL (3 mL) insulin pen Discontinued 10 U SC daily July 09, 2017 11:00pm February 28, 2018 9:17am Start: 06-13-2017 End: 07-10-2017 Insulin Glargine (Basaglar K wikpen U-100 Insulin) 100 unit/mL (3 mL) insulin pen Discontinued 30 U SC daily 45 June 12, 2017 11:00pm July 10, 2017 9:35am Insulin Pulper Tender Cart,Aut,G6/7,Cntr (Omnipod 5 G6-G7 Intro Kt(Gen5)) cartridge (1 source) Start: 03-15-2024 End: 04-12-2024 Insulin Pulper Tender Cart,Aut,G6/7,Cntr (Omnipod 5 G6-G7 Intro Kt(Gen5)) cartridge Discontinued 0 .Route 1 March 15, 2024 12:00am April 12, 2024 3:55pm As directed insulin aspart, human 100 unt/ml injectable solution (20 sources) Insulin Analog Start: 10-16-2017 End: 01-23-2024 Insulin Aspart U-100 (Novolog U-100 Insulin Aspart) 100 unit/mL solution Discontinued 0 SC DAILY 60 May 13, 2021 11:18am March 29, 2022 9:28am uses up to 50 units qd via pump SC DAILY; Start: 09-27-2017 End: 10-16-2017 Insulin Aspart (Niacinamide) (Fiasp U-100 Insulin) 100 unit/mL solution Discontinued 20 U SC TWICE A DAY 60 September 26, 2017 11:00pm October 16, 2017 11:41am Start: 06-13-2017 End: 02-28-2018 Insulin Aspart (Niacinamide) (Fiasp Flextouch U-100 Insulin) 100 unit/mL (3 mL) insulin pen Discontinued 0 SC before meals 45 June 12, 2017 11:00pm February 28, 2018 9:17am SC QAC; administer within 15min before meal/food; no later than 20min after start of meal/snack Uses up to 50 units daily using 1-12 I/C ratio Start: 06-13-2017 End: 02-28-2018 Insulin Aspart (Niacinamide) (Fiasp Flextouch U-100 Insulin) 100 unit/mL (3 mL) insulin pen Discontinued 0 SC before meals 45 June 13, 2017 12:00am February 28, 2018 10:17am SC QAC; administer within 15min before meal/food; no later than 20min after start of meal/snack Uses up to 50 units daily using 1-12 I/C ratio Start: 09-22-2016 NOVOLOG 100 UN IT/ML SOLN Inject subcutaneously via pump as directed 45-60 units daily INSULIN ASPART [id number] Jeri Glover CMA Start: 09-22-2016 NOVOLOG 100 UN IT/ML SOLN INSULIN ASPART [id number] Vandana Pablo MD Start: 09-22-2016 NOVOLOG 100 UN IT/ML SOLN Inject subcutaneously via pump as directed 45-60 units daily INSULIN ASPART [id number] Jeri Glover CMA Start: 09-22-2016 NOVOLOG 100 UN IT/ML SOLN INSULIN ASPART [id number] Vandana Pablo MD Start: 09-22-2016 NOVOLOG 100 UN IT/ML SOLN INSULIN ASPART [id number] Vandana Pablo MD Start: 07-24-2016 End: 2017 Insulin Aspart U-100 100 UNI T/ML solution Discontinued 1000 U CONT INF DIRECTED 0 July 24, 2016 10:35am 2017 3:13pm dosing per endocrinology recommendations Start: 07-20-2016 End: 07-24-2016 Insulin Aspart U-100 (Novolo g) 100 UNIT/ML Vial Discontinued 1000 U CONT INF DIRECTED July 19, 2016 11:00pm July 24, 2016 10:35am Start: 09-22-2015 End: 04-30-2024 Insulin Aspart U-100 (Novolo g U-100 Insulin Aspart) 100 unit/mL solution Discontinued 0 SC daily 2017 12:00am July 10, 2017 9:34am uses 45-60U q day via pump SC QDAY NOVOLOG SOLN INS ULIN ASPART SOLN [id number] Migel Garcia LANCETS (11 sources) FREESTYLE LANCET S Use as directed. LANCETS [id number] Marianna Jamili JESUS FREESTYLE LANCET S MISC Use as directed. LANCETS [phone] Marianna Weinberg LPN levonorgestrel 0.160347 mg/hr intrauterine system (6 sources) Progestin, Progestin-containing Intrauterine Device Start: 03-11-2017 End: 10-08-2018 Levonorgestrel 1 EACH intrauterine device Discontinued 1 NMA IY DAILY March 11, 2017 12:00am October 08, 2018 10:06am medroxyPROGESTERone acetate 10 mg oral tablet (1 source) Progestin Start: 07-18-2023 End: 09-18-2023 take 1 tablet by mouth once daily Medroxyprogesterone (Provera) 10 mg tablet Discontinued 10 mg PO DAILY July 17, 2023 11:00pm September 18, 2023 7:26am naproxen 250 mg oral tablet (6 sources) Nonsteroidal Anti-inflammatory Drug Start: 09-17-2019 End: 10-31-2019 take 250-500 mg by mouth every eight hours as needed for pain Naproxen 250 MG tablet Discontinued 250 - 500 mg PO EVERY 8 HOURS NEEDED as needed for MILD PAIN September 16, 2019 11:00pm October 31, 2019 10:34am nitrofurantoin, macrocrystals 25 mg / nitrofurantoin, monohydrate 75 mg oral capsule (6 sources) Nitrofuran Antibacterial Start: 07-12-2017 End: 07-17-2017 take 1 capsule by mouth every twelve hours at mealtime Nitrofurantoin Monohyd/M-Cryst (Macrobid) 100 mg capsule Discontinued 1 NMA PO Q12H 10 July 11, 2017 11:00pm July 15, 2017 11:00pm July 16, 2017 11:07pm administer with a meal/food; swallow whole; do not open, crush, dissolve , or chew ondansetron 4 mg disintegrating oral tablet (12 sources) Serotonin-3 Receptor Antagonist Start: 12-11-2018 End: 03-08-2019 take 1 tablet by mouth every eight hours as needed for nausea Ondansetron 4 MG tablet Discontinued 4 mg PO EVERY 8 HOURS NEEDED as needed for Nausea December 10, 2018 11:00pm March 08, 2019 3:46pm Start: 03-11-2017 End: 07-10-2017 take 1 tablet by mouth every eight hours as needed for nausea Ondansetron 4 MG tablet Discontinued 4 mg PO EVERY 8 HOURS NEEDED as needed for Nausea March 11, 2017 12:00am July 10, 2017 9:35am Pnv #[id number] Acid-Omega3 30 mg iron-10 mg iron-1 mg capsule (1 source) Start: 03-08-2019 End: 03-05-2020 Pnv #[id number] Acid-Omega3 30 mg iron-10 mg iron-1 mg capsule Discontinued 1 NMA PO DAILY March 08, 2019 12:00am March 05, 2020 1:20pm microencapsulated potassium chloride 20 meq extended release oral tablet (6 sources) Start: 12-11-2018 End: 02-05-2019 take 1 tablet by mouth once daily Potassium Chloride 20 MEQ tablet Discontinued 20 meq PO DAILY December 10, 2018 11:00pm February 05, 2019 2:49pm MV & MIN W/FE-FA TABS (13 sources) End: 11-01-2016 take 1 tablet by mouth once daily VITAMINS TABS One tablet by mouth daily MV & MIN W/FE-FA TABS [id number] Vandana Pablo MD take 1 tablet by mouth once kimberli y VITAMINS TABS One tablet by mouth daily MV & MIN W/FE-FA TABS [id number] Migel Mcginnispp MV & MIN W/FE-FA TABS (1 source) take 1 tablet by mouth once daily VITAMINS TABS One tablet by mouth daily MV & MIN W/FE-FA TABS [id number] Migel Eason Jose VIT-FE FUMARATE-FA (7 sources) Start: 09-22-2016 take 1 tablet by mouth once daily VITAMINS 28-0.8 MG TABS One tablet by mouth daily VIT-FE FUMARATE-FA [id number] Vandana Pablo MD Start: 09-22-2016 take 1 tablet by sathish th once daily VITAMINS 28-0.8 MG TABS One tablet by mouth daily VIT-FE FUMARATE-FA [id number] Vandana Pablo MD VIT-FE FUMARATE-FA (1 source) Start: 09-22-2016 take 1 tablet by mouth once daily VITAMINS 28-0.8 MG TABS One tablet by mouth daily VIT-FE FUMARATE-FA [id number] Vandana Pablo MD VIT/IRON FUMARATE/FA ( ORAL) (1 source) End: 03-12-2024 VIT/IRON FUMARATE/FA ( ORAL) Indications: Pre-existing type 1 diabetes mellitus in in first trimester Take by mouth. 03/12/2024 Discontinued vitamin#30 30 mg iron-10 mg iron-folic acid 1 mg-omg3 capsule (5 sources) Start: 03-08-2019 End: 03-05-2020 take 1 capsule by mouth once daily vitamin#30 30 mg iron-10 mg iron-folic acid 1 mg-omg3 capsule Discontinued 1 CAP PO DAILY March 08, 2019 4:46pm March 05, 2020 2:20pm Start: 03-08-2019 End: 03-05-2020 take 1 capsule by mouth once daily vitamin#30 30 mg iron-10 mg iron-folic acid 1 mg-omg3 capsule Discontinued 1 CAP PO DAILY March 08, 2019 1:00am March 05, 2020 2:20pm Start: 03-08-2019 End: 03-05-2020 take 1 capsule by mouth once daily vitamin#30 30 mg iron-10 mg iron-folic acid 1 mg-omg3 capsule Discontinued 1 CAP PO DAILY March 08, 2019 12:00am March 05, 2020 1:20pm Problems Active Problems Problem Classification Problem Date Documented Date Episodic/Chronic Abdominal pain (6 sources) Right flank pain; 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: [Unspecified abdominal pain] 10-08-2018 Episodic Anxiety disorders (1 source) Generalized anxiety disorder; 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: [Generalized anxiety disorder] 03-12-2024 Chronic Coagulation and hemorrhagic disorders (13 sources) Factor XIII deficiency disease; 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: [Hereditary deficiency of other clotting factors] Onset: 02-26-2016 03-08-2019 Chronic Comment on above: 40 mg Lovenox until 12 weeks, and 81 mg baby ASA continuous Diabetes mellitus with complications (13 sources) Diabetes mellitus; 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: [Type 2 diabetes mellitus with mild nonproliferative diabetic retinopathy without macular edema, bilateral] Onset: 07-23-2024 Chronic Diabetes mellitus without complication (20 sources) Type 1 diabetes mellitus; 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: [Diabetes mellitus] Onset: 11-11-2004 01-27-2016 Chronic Diabetes mellitus without complication (13 sources) Insulin pump present; 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: [Presence of insulin pump (external) (internal)] Episodic Menstrual disorders (4 sources) Amenorrhea; 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: [Amenorrhea, unspecified] Onset: 04-09-2024 07-26-2023 Chronic Nonmalignant breast conditions (9 sources) Mastitis; 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: [Breast tenderness] Onset: 09-29-2016 09-29-2016 Episodic Comment on above: left Other female genital disorders (1 source) Abnormal uterine bleeding; 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: [Abnormal uterine and vaginal bleeding, unspecified] 07-18-2023 Chronic Other nutritional; endocrine; and metabolic disorders (20 sources) Overweight; 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: [Overweight] Onset: 05-18-2016 Resolved: 09-25-2016 05-18-2016 Chronic Other nutritional; endocrine; and metabolic disorders (2 sources) Overweight in adulthood with body mass index of 25 or more but less than 30; 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: [Overweight] 01-26-2023 Episodic Other nutritional; endocrine; and metabolic disorders (2 sources) Overweight; 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: [Overweight] 01-26-2023 Episodic Other screening for suspected conditions (not mental disorders or infectious disease) (9 sources) Patient encounter status; 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: [Encounter for screening for other suspected endocrine disorder] Onset: 03-30-2024 03-12-2024 Episodic Residual codes; unclassified (6 sources) Genetic alleles; 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: [Genetic susceptibility to other disease] 09-10-2019 Episodic Residual codes; unclassified (3 sources) Family history of breast cancer; 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: [Family history of malignant neoplasm of breast] 01-26-2023 Episodic Comment on above: [employer] screening Unclassified (1 source) Insertion of insulin pump; 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: [jail (current) use of insulin] Onset: 02-24-2016 02-29-2016 Past or Other Problems Problem Classification Problem Date Documented Date Episodic/Chronic Contraceptive and procreative management (16 sources) Encounter for insertion of intrauterine contraceptive device; 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: [IUD contraception] Onset: 09-22-2016 Resolved: 09-25-2016 09-25-2016 Episodic Diabetes or abnormal glucose tolerance complicating ; childbirth; or the puerperium (7 sources) Pre-existing type 1 diabetes mellitus in ; 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: [Pre-existing type 1 diabetes mellitus, in , first trimester] Onset: 07-02-2015 Resolved: 09-28-2015 02-15-2021 Chronic Other aftercare (11 sources) 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; 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: [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] Onset: 02-24-2016 02-29-2016 Episodic Other complications of (20 sources) High risk ; 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: [Supervision of high risk , unspecified, third trimester] Onset: 01-27-2016 Resolved: 09-25-2016 09-25-2016 Episodic Other complications of (7 sources) Urinary tract infection in ; 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: [Unspecified infection of urinary tract in , unspecified trimester] Onset: 02-26-2016 02-26-2016 Episodic Other complications of (7 sources) Finding of pattern of ; 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: [Supervision of other high risk pregnancies, unspecified trimester] Onset: 07-02-2015 Resolved: 02-26-2016 02-15-2021 Episodic Other nutritional; endocrine; and metabolic disorders (20 sources) Body mass index (BMI) 26.0-26.9, adult; 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: [Body mass index (BMI) 25.0-25.9, adult] Onset: 05-02-2016 Resolved: 09-25-2016 06-14-2016 Episodic Other nutritional; endocrine; and metabolic disorders (2 sources) Body mass index (BMI) 25.0-25.9, adult; 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: [Body mass index (BMI) 25.0-25.9, adult] Onset: 05-02-2016 Resolved: 09-25-2016 09-25-2016 Episodic Other and delivery including normal (7 sources) ; 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: [Encounter for supervision of normal , unspecified, unspecified trimester] Onset: 02-26-2016 Resolved: 07-19-2016 07-19-2016 Episodic Residual codes; unclassified (3 sources) Family history of malignant neoplasm of breast; 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: [Family history of malignant neoplasm of breast] Onset: 04-09-2024 01-26-2023 Episodic Residual codes; unclassified (7 sources) Past history of procedure; 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: [Personal history of other medical treatment] Onset: 02-26-2016 02-26-2016 Episodic Unclassified (2 sources) Insertion of intrauterine contraceptive device done; 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: [Encounter for insertion of intrauterine contraceptive device] Onset: 09-22-2016 Resolved: 09-25-2016 09-25-2016 Unclassified (6 sources) 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, [address] MALB:CREAT UNABLE TO CALCULATE Normal [facility] Comment on above: Performed By: #### L 502.0250 #### [facility] [address] [place], [address] MICROALBUMIN,UR < 12.0 Normal NO RANGE EST. [facility] Comment on above: Performed By: #### L 502.0250 #### [facility] [address] [place], [address] CNPNon 04-30-2024 CNPN Telephone ([facility]) ---- MILANA CORREIA ([id number]) 1990 [facility] Date Time Provider Department 04/30/24 PRESTON KANG [facility] During your visit today, we recorded the following information about you: Manny Harley RPh 04/30/2024 11:56 AM Signed Prescription for Novolog is not covered by patient's insurance and rejects as a non-formulary product. Can [facility] receive a new E-Script for Humalog, if appropriate? Please discuss any therapy changes with patient as necessary. Thank you! Manny Harley [facility] [phone] Preston Kang MD 04/30/2024 2:37 PM Signed The following approved medication requests have been transmitted electronically. Requested Prescriptions Signed Prescriptions Disp Refills insulin lispro (HUMALOG U-100 INSULIN) 100 unit/mL injection 60 mL 3 Si units daily for insulin pump use. Authorizing Provider: PRESTON KANG MD Allergies As of Date: 04/30/2024 Noted Allergy Reaction IV CONTRAST (IODINE) 03/12/2024 11 - Vomiting LOVASTATIN 02/03/2009 Comments: sleep disruption Date Reviewed: 03/12/2024 Reviewed by: Lora Willett APRN.MACHINE MAINTENANCE MECHANIC - Fully Assessed Reason for Visit: Medication Problem [65] Cmt: Novolog Primary Visit Diagnosis:Type 1 diabetes mellitus without complication (HCC) [E10.9] Order(s):Order #: [id number] Prescriptions as of 04/30/2024 - insulin lispro (HUMALOG U-100 INSULIN) 100 unit/mL injection 60 units daily for insulin pump use. - insulin pump cart,auto,BT,G6/7 (OMNIPOD 5 G6-G7 PODS, GEN 5,) crtg USE DIRECTED - FLUoxetine (PROZAC) 10 mg capsule TAKE 1 CAPSULE BY MOUTH EVERY DAY - insulin tug boat engineer cart,aut,G6/7,cntr (OMNIPOD 5 G6-G7 INTRO KT,GEN5,) crtg As directed - FLUoxetine (PROZAC) 20 mg capsule Take 1 capsule by mouth once daily. Patient should start on April 12, 2024. 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 Medications Discontinued During This Encounter Prescriptions - insulin aspart U-100 (NOVOLOG U-100 INSULIN ASPART) 100 unit/mL (Discontinued) Inject subcutaneously. In a pump as directed, (uses up to 60 units/day). Encounter Status:Closed by PRESTON KANG on 04/30/24 [facility] Miscellaneous procedureOrder ed By: Raquel Camara on 04-09-2024 Miscellaneous Test Comment SEE SCANNED REPORT [facility] 04-09-2024 NATURA SEE SCANNED REPORT Normal [facility] Comment on above: Order Comment: Comme nts: empower Performed By: #### L 900.0098 #### [facility] [address] [place], [address] Clinical Cytopathologist Office Visit Reporton 04-09-2024 Clinical Cytopathologist Office Visit Report [facility], [address] [place] [address] OFFICE VISIT Date of Service: 04/09/24 MR#: [id number] Acct: [id number] Name: MILANA CORREIA Rep #: [id number] : 1990 Provider: VIDHYA Berry Age/Sex: 34/F [place] [facility] [place]: Signed Intake Vital Signs 01/23/24 09:22 04/09/24 09:33 Height 5 ft 5 in 5 ft 5 in Weight: 175 lb 172 lb BMI 29.1 28.6 BP 137/86 H 121/75 H Blood Pressure Location Lt brachial Position Sitting Pulse 90 Pulse Source Monitor Pulse Oximetry (%) 98 Oxygen Delivery Method room air 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 Is patient in pain?: No Allergies Iodinated Contrast Media Allergy (Severe, Verified 04/09/24 09:31) Vomiting lovastatin Allergy (Severe, Verified 04/09/24 09:31) Unknown Medications ???Medication ???Instructions ???Recorded ???Confirmed ???Type Novolog U-100 Insulin aspart 100 See Rx Instructions subcut DAILY 1 03/25/23 04/09/24 Rx unit/mL subcutaneous solution e10.9 #60 mL (insulin aspart U-100) glucagon 3 mg/actuation nasal 3 mg intranasal ONCE #2 ea 2 4 04/09/24 Rx spray (Baqsimi) insulin pump cartridge,auto #1 ea 03/15/24 04/09/24 Rx dose,BT,G6/G7 with controller subcutaneous (Omnipod 5 G6-G7 Intro Kit(Gen 5) subcutaneous cartridge and controller) fluoxetine 20 mg capsule 20 mg PO QDAY 04/09/24 04/09/24 Hi story Is last menstrual period known: Yes Last Menstrual Period: 02/04/24 Post menopausal: No Patient : No : No Control Method: tubal PFSH Medical History Diabetes mellitus type 1 Non-proliferative diabetic retinopathy, both eyes HEATHER-1 4G/4G 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 History of miscarriage Diabetes type 1, controlled Surgical History S/P repeat low transverse Hx of bilateral salpingectomy H/O: Family History Mother Breast cancer Grandfather Osteoporosis Grandmother Diabetes Hypertension Social History Smoking Status: Never smoker second hand exposure: No alcohol intake: never substance use type: does not use caffeine: Yes what type of physical activity do you participate in: walking seatbelt use: always do you feel safe at home: Yes additional social history: [employer]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 Date Name GA/Weeks Outcome Route Bth Weight Infant Gen Labor Lgth Anesthesia Del Locatn Provider FOB Unknown 07/20/2016 Piper 35 live - 8lbs 1oz Female [place] 09/16/19 [place] live - full term Female [facility] Brad bradfordnthony [facility] Encounter for routine gynecological examination Details: MILANA CORREIA is a 34 year old who presents for annual exam. She reports she did have the provera challenge about 6 months ago--this did succesfully start a period however they then became irregular again and she had 2 cycles back to back in Dec/Jan however has not had a menses since. Family history of mom with breast cancer at age 51--interested in empower testing. Last PAP: 2021; normal. hpv neg History of abnormal PAP: no Last mammogram: age 40 History of abnormal mammogram: n/a Colon cancer screening: age 45 Other preventative health care screenings: Dr. Vandana Willett MD [facility]. Female Reproductive History Last Menstrual Period: 02/04/24 Cycle Length: >35 Bleeding Duration: 6 Questions: metorrhagia: No, sexually active: Yes, dyspareunia: No and PCB: No ROS Const Constitutional: Denies chills, fatigue, fever(s), headache(s) or weight loss Eyes Eyes: Denies change in vision ENT ENT: Denies dizziness Resp Resp: Denies cough GI GI: Denies abdominal pain, constipation or nausea : Denies difficulty voiding, dysuria, hematuria, nipple discharge, pelvic pain, prolapse symptoms, urinary incontinence, vaginal discharge, vaginal dryness, vaginal odor or vaginal pruritus Skin Skin/Breast: Reports breast pain (with cycles); Denies alopecia, rash, breast mass, breast skin changes or nipple discharge Neuro Neuro: Denies dizziness Psych Psych: Denies anxiety or depression Endo Endo: Denies cold intolerance, excessive sweating or heat intolerance Exam Const General: cooperative, healthy appearing, comfortable, no acute distress, well groomed and well (more content not included)... Normal [facility] 25(OH)D3 [facility] 2024 25-hydroxyvitamin D3 [Mass/Vol] 34.5 ng/mL Normal 31.0-80.0 [facility] Comment on above: Order Comment: Speci men Type: BLOOD SPECIMEN Ordering Facility: [facility] Address: [address] [place] [address] Result Comment: Clas sification of 25 [place] Vitamin D status: Deficiency/Insufficiency: < or = 30 ng/ml. Sufficiency/Optimal Levels: 31-80 ng/mL Toxicity: > 100 ng/mL. Test performed by chemiluminescent immunoassay. Performed By: #### 1 989-3 #### [facility] CLIA [id number] [address] [place] [id number] [place] [address] [place] CBC panel Auto (Bld)on 03-30 Erythrocyte distribution width (RBC) [Ratio] 13.5 % Normal 11.5-15.0 [facility] Comment on above: Order Comment: Speci men Type: BLOOD SPECIMEN Ordering Facility: [facility] Address: [address] [place] [address] Performed By: #### 5 8410-2 #### [facility] CLIA [id number] [address] [place] [address] [place] Hematocrit (Bld) [Volume fraction] 41.9 % Normal 36.0-46.0 [facility] Comment on above: Order Comment: Speci men Type: BLOOD SPECIMEN Ordering Facility: [facility] Address: [address] [place] [address] Performed By: #### 5 8410-2 #### [facility] CLIA [id number] [address] [place] [address] [place] Hemoglobin (Bld) [Mass/Vol] 13.6 g/dL Normal 11.5-15.5 [facility] Comment on above: Order Comment: Speci men Type: BLOOD SPECIMEN Ordering Facility: [facility] Address: [address] [place] [address] Performed By: #### 5 8410-2 #### [facility] CLIA [id number] [address] [place] [address] [place] MCH (RBC) [Entitic mass] 27.3 pg Normal 26.0-34.0 [facility] Comment on above: Order Comment: Speci men Type: BLOOD SPECIMEN Ordering Facility: [facility] Address: [address] [place] [address] Performed By: #### 5 8410-2 #### [facility] CLIA [id number] [address] [place] [address] [place] MCHC (RBC) [Mass/Vol] 32.5 g/dL Normal 30.5-36.0 [facility] Comment on above: Order Comment: Speci men Type: BLOOD SPECIMEN Ordering Facility: [facility] Address: [address] [place] [address] Performed By: #### 5 8410-2 #### [facility] CLIA [id number] [address] [id number] [address] [place] MCV (RBC) [Entitic vol] 84.1 fL Normal 80.0-100.0 [facility] Comment on above: Order Comment: Speci men Type: BLOOD SPECIMEN Ordering Facility: [facility] Address: [address] [place] [address] Performed By: #### 5 8410-2 #### [facility] CLIA [id number] [address] [place] [address] [place] Nucleated RBC (Bld) [#/Vol] 10*3/uL Normal <0.01 [facility] Comment on above: Order Comment: Speci men Type: BLOOD SPECIMEN Ordering Facility: [facility] Address: [address] [place] [address] Performed By: #### 5 8410-2 #### [facility] CLIA [id number] [address] [place] [address] [place] Platelet mean volume (Bld) [Entitic vol] 11.2 fL Normal 9.0-12.7 [facility] Comment on above: Order Comment: Speci men Type: BLOOD SPECIMEN Ordering Facility: [facility] Address: [address] [place] [address] Performed By: #### 5 8410-2 #### [facility] CLIA [id number] [address] [place] [address] [place] Platelets (Bld) [#/Vol] 290 10*3/uL Normal 150-400 [facility] Comment on above: Order Comment: Speci men Type: BLOOD SPECIMEN Ordering Facility: [facility] Address: [address] [place] [address] Performed By: #### 5 8410-2 #### [facility] CLIA [id number] [address] [place] [address] [place] RBC (Bld) [#/Vol] 4.98 10*6/uL Normal 3.90-5.20 [facility] Comment on above: Order Comment: Speci men Type: BLOOD SPECIMEN Ordering Facility: [facility] Address: [address] [place] [address] Performed By: #### 5 8410-2 #### [facility] CLIA [id number] [address] [place] [address] [place] WBC (Bld) [#/Vol] 7.07 10*3/uL Normal 3.70-11.00 [facility] Comment on above: Order Comment: Speci men Type: BLOOD SPECIMEN Ordering Facility: [facility] Address: [address] [place] [address] Performed By: #### 5 8410-2 #### [facility] CLIA [id number] [address] [place] [address] [place] Comprehensive metabolic 2000 panelon 03-30-2024 Albumin [Mass/Vol] 4.1 g/dL Normal 3.9-4.9 [facility] Comment on above: Order Comment: Speci men Type: BLOOD SPECIMEN Ordering Facility: [facility] Address: [address] [place] [address] Performed By: #### 2 4323-8, 62662-7, 6-3, 3024-7 #### [facility] CLIA [id number] [address] [place] [address] [place] ALP [Catalytic activity/Vol] 82 U/L Normal 34-123 [facility] Comment on above: Order Comment: Speci men Type: BLOOD SPECIMEN Ordering Facility: [facility] Address: [address] [place] [address] Performed By: #### 2 4323-8, 86504-0, 6-3, 3024-7 #### [facility] CLIA [id number] [address] [place] [address] [place] ALT [Catalytic activity/Vol] 18 U/L Normal 7-38 [facility] Comment on above: Order Comment: Speci men Type: BLOOD SPECIMEN Ordering Facility: [facility] Address: [address] [place] [address] Performed By: #### 2 4323-8, 27937-2, 3016-3, 3024-7 #### [facility] CLIA [id number] [address] [place] [address] [place] Anion gap [Moles/Vol] 11 mmol/L Normal 8-15 [facility] Comment on above: Order Comment: Speci men Type: BLOOD SPECIMEN Ordering Facility: [facility] Address: [address] [place] [address] Performed By: #### 2 4323-8, 76926-1, 3016-3, 3024-7 #### [facility] CLIA [id number] [address] [place] [address] [place] AST [Catalytic activity/Vol] 17 U/L Normal 13-35 [facility] Comment on above: Order Comment: Speci men Type: BLOOD SPECIMEN Ordering Facility: [facility] Address: [address] [place] [address] Performed By: #### 2 4323-8, 77441-7, 301-3, 3024-7 #### [facility] CLIA [id number] [address] [place] [address] [place] Bilirubin [Mass/Vol] 0.4 mg/dL Normal 0.2-1.3 [facility] Comment on above: Order Comment: Speci men Type: BLOOD SPECIMEN Ordering Facility: [facility] Address: [address] [place] [address] Performed By: #### 2 4323-8, 26453-8, 3015-3, 3024-7 #### [facility] CLIA [id number] [address] [place] [address] [place] Calcium [Mass/Vol] 9.1 mg/dL Normal 8.5-10.2 [facility] Comment on above: Order Comment: Speci men Type: BLOOD SPECIMEN Ordering Facility: [facility] Address: [address] [place] [address] Performed By: #### 2 4323-8, 05996-1, 3016-3, 3024-7 #### [facility] CLIA [id number] [address] [place] [address] [place] Chloride [Moles/Vol] 102 mmol/L Normal 98-107 [facility] Comment on above: Order Comment: Speci men Type: BLOOD SPECIMEN Ordering Facility: [facility] Address: [address] [place] [address] Performed By: #### 2 4323-8, 81520-9, 3016-3, 3024-7 #### [facility] CLIA [id number] [address] [place] [address] [place] CO2 [Moles/Vol] 25 mmol/L Normal 22-30 [facility] Comment on above: Order Comment: Speci men Type: BLOOD SPECIMEN Ordering Facility: [facility] Address: [address] [place] [address] Performed By: #### 2 4323-8, 98387-9, 3016-3, 3024-7 #### [facility] CLIA [id number] [address] [place] [address] [place] Creatinine [Mass/Vol] 0.71 mg/dL Normal 0.58-0.96 [facility] Comment on above: Order Comment: Speci men Type: BLOOD SPECIMEN Ordering Facility: [facility] Address: [address] [place] [address] Performed By: #### 2 4323-8, 79254-1, 6-3, 3024-7 #### [facility] CLIA [id number] [address] [place] [address] [place] Creatinine and Glomerular filtration rate.predicted panel (S/P/Bld) 115 mL/min/1.73m??? Normal >=60 [facility] Comment on above: Order Comment: Jennifer guajardo Type: BLOOD SPECIMEN Ordering Facility: [facility] Address: [address] [place] [address] Result Comment: Tierney mated Glomerular Filtration Rate (eGFR) is calculated using the 2020 CKD-EPI creatinine equation. This equation utilizes serum creatinine, sex, and age as parameters. The creatinine assay has traceable calibration to isotope dilution-mass spectrometry. Refer to KDIGO guidelines for clinical interpretation. In patients with unstable renal function, e.g. those with acute kidney injury, the eGFR may not accurately reflect actual GFR. Performed By: #### 2 4323-8, 63571-6, 6-3, 302-7 #### [facility] CLIA [id number] [address] [place] [address] [place] Glucose [Mass/Vol] 155 mg/dL High 74-99 [facility] Comment on above: Order Comment: Jennifer guajardo Type: BLOOD SPECIMEN Ordering Facility: [facility] Address: [address] [place] [address] Result Comment: The [place] Diabetes Association (ADA) provides guidance for cutoff values for fasting glucose and random glucose. The ADA defines fasting as no caloric intake for at least 8 hours. Fasting plasma glucose results between 100 to 125 mg/dL indicate increased risk for diabetes (prediabetes). Fasting plasma glucose results greater than or equal to 126 mg/dL meet the criteria for diagnosis of diabetes. In the absence of unequivocal hyperglycemia, results should be confirmed by repeat testing. In a patient with classic symptoms of hyperglycemia or hyperglycemic crisis, random plasma glucose results greater than or equal to 200 mg/dL meet the criteria for diagnosis of diabetes. Reference: Standards of Medical Care in Diabetes 2016, English Diabetes Association. Diabetes Care. 2016.39(Suppl 1). Performed By: #### 2 4323-8, 79338-9, 6-3, 3027 #### [facility] CLIA [id number] [address] [place] [address] [place] Potassium [Moles/Vol] 4.3 mmol/L Normal 3.7-5.1 [facility] Comment on above: Order Comment: Speci men Type: BLOOD SPECIMEN Ordering Facility: [facility] Address: [address] [place], [place] [address] Performed By: #### 2 4323-8, 86029-9, 3015-3, 7 #### [facility] CLIA [id number] [address] [place], [place] [address] [place] Protein [Mass/Vol] 6.9 g/dL Normal 6.3-8.0 [facility] Comment on above: Order Comment: Speci men Type: BLOOD SPECIMEN Ordering Facility: [facility] Address: [address] [place] [address] Performed By: #### 2 4323-8, 84594-7, 3015-3, 7 #### [facility] CLIA [id number] [address] [place] [address] [place] Sodium [Moles/Vol] 138 mmol/L Normal 136-144 [facility] Comment on above: Order Comment: Speci men Type: BLOOD SPECIMEN Ordering Facility: [facility] Address: [address] [place] [address] Performed By: #### 2 4323-8, 79174-6, 3015-3, 7 #### [facility] CLIA [id number] [address] [place], [place] [address] [place] Urea nitrogen [Mass/Vol] 12 mg/dL Normal 7-21 [facility] Comment on above: Order Comment: Speci men Type: BLOOD SPECIMEN Ordering Facility: [facility] Address: [address] [place] [address] Performed By: #### 2 4323-8, 09135-7, 3015-3, 7 #### [facility] CLIA [id number] [address] [place] [address] [place] HbA1c (Bld)on 03-30-2024 Average glucose Estimated from glycated hemoglobin (Bld) [Mass/Vol] 160 mg/dL Normal [facility] Comment on above: Order Comment: Jennifer guajardo Type: BLOOD SPECIMEN Ordering Facility: [facility] Address: [address] [place] [address] Result Comment: eAG: (Estimated average glucose) is a calculated value from HgbA1c and is account maintenance representative of the average blood glucose level in the last 2-3 month period. Performed By: #### 5 5454-3 #### [facility] CLIA [id number] [address] [place] [address] [place] HbA1c (Bld) [Mass fraction] 7.2 % High 4.3-5.6 [facility] Comment on above: Order Comment: Jennifer guajardo Type: BLOOD SPECIMEN Ordering Facility: [facility] Address: [address] [place] [address] Result Comment: [place] Diabetes Association guidelines indicate that patients with HgbA1c in the range 5.7-6.4% are at increased risk for development of diabetes, and intervention by lifestyle modification may be beneficial. HgbA1c greater or equal to 6.5% is considered diagnostic of diabetes. Performed By: #### 5 5454-3 #### [facility] CLIA [id number] [address] [place] [address] [place] Lipid 1996 panelon 5 Cholesterol [Mass/Vol] 143 mg/dL Normal <200 [facility] Comment on above: Order Comment: Jennifer guajardo Type: BLOOD SPECIMEN Order[facility] Facility: [facility] Address: [address] [place] [address] Result Comment: <200 mg/dL, Desirable 200-239 mg/dL, Borderline high >239 mg/dL, High Performed By: #### 2 4323-8, 36741-9, 3016-3, 3024-7 #### [facility] CLIA [id number] [address] [place] [address] [place] Cholesterol in HDL [Mass/Vol] 69 mg/dL Normal >39 [facility] Comment on above: Order Comment: Jennifer guajardo Type: BLOOD SPECIMEN Ordering Facility: [facility] Address: [address] [place] [address] Result Comment: 40-5 9 mg/dL, Acceptable >59 mg/dL, High: Negative risk factor for coronary heart disease <40 mg/dL, Low: Positive risk factor for coronary heart disease Performed By: #### 2 4323-8, 34624-0, 6-3, 7 #### [facility] CLIA [id number] [address] [place], [place] [address] [place] [address] [place] Cholesterol in LDL [Mass/Vol] 66 mg/dL Normal <100 [facility] Comment on above: Order Comment: Jennifer guajardo Type: BLOOD SPECIMEN Ordering Facility: [facility] Address: [address] [place] [address] Result Comment: <100 mg/dL, Optimal 100-129 mg/dL, Near optimal/above optimal 130-159 mg/dL, Borderline high 160-189 mg/dL, High >189 mg/dL, Very high Secondary prevention optimal LDL Cholesterol levels are recommended to be < 70 mg/dL Performed By: #### 2 4323-8, 26404-9, 3015-3, 3023-08 #### [facility] CLIA [id number] [address] [place] [address] [place] Cholesterol in LDL/Cholesterol in HDL [Mass ratio] 0.96 {ratio} Normal <2.54 [facility] Comment on above: Order Comment: Jennifer guajardo Type: BLOOD SPECIMEN Ordering Facility: [facility] Address: [address] [place] [address] Result Comment: Refe rence: 1. National Cholesterol Education Program ATP III Guideline At-A-Glance Quick Desk Reference: National Heart, Lung, and Blood [place]. National Institutes of Health. 2001: NIH Publication No. 01-3305. 2. An International Atherosclerosis Society position paper: global recommendations for the management of dyslipidemia: executive summary, Atherosclerosis. 2014: 232(2):410-413. Performed By: #### 2 4323-8, 66007-9, 6-3, 3023-08 #### [facility] CLIA [id number] [address] [place], [place] [address] [place] Cholesterol in VLDL [Mass/Vol] 8 mg/dL Normal <30 [facility] Comment on above: Order Comment: Speci men Type: BLOOD SPECIMEN Ordering Facility: [facility] Address: [address] [place], [place] [id number] Performed By: #### 2 4323-8, 04372-4, 3016-3, 3024-7 #### [facility] CLIA [id number] [address] [place], [place] [address] [place] Cholesterol non HDL [Mass/Vol] 74 mg/dL Normal <130 [facility] Comment on above: Order Comment: Speci men Type: BLOOD SPECIMEN Ordering Facility: [facility] Address: [address] [place] [address] Result Comment: <130 mg/dL, Optimal 130-159 mg/dL, Near optimal/above optimal 160-189 mg/dL, Borderline high 190-219 mg/dL, High >219 mg/dL, Very high Secondary prevention optimal non HDL Cholesterol levels are recommended to be <100 mg/dL Performed By: #### 2 4323-8, 09756-1, 3016-3, 3024-7 #### [facility] CLIA [id number] [address] [place] [address] [place] Cholesterol.total/Cho lesterol in HDL [Mass ratio] 2.07 {ratio} Normal <5.10 [facility] Comment on above: Order Comment: Speci men Type: BLOOD SPECIMEN Ordering Facility: [facility] Address: [address] [place] [address] Performed By: #### 2 4323-8, 61486-1, 6-3, 302-7 #### [facility] CLIA [id number] [address] [place] [address] [place] FASTING TIME 12 hrs Normal [facility] Comment on above: Order Comment: Speci men Type: BLOOD SPECIMEN Ordering Facility: [facility] Address: [address] [place] [address] Performed By: #### 2 4323-8, 88531-9, 3016-3, 3027 #### [facility] CLIA [id number] [address] [place] [address] [place] Triglyceride [Mass/Vol] 39 mg/dL Normal <150 [facility] Comment on above: Order Comment: Speci men Type: BLOOD SPECIMEN Ordering Facility: [facility] Address: [address] [place] [address] Result Comment: <150 mg/dL, Normal 150-199 mg/dL, Borderline high 200-499 mg/dL, High >499 mg/dL, Very high Performed By: #### 2 4323-8, 95881-2, 6-3, 3027 #### [facility] CLIA [id number] [address] [place] [address] [place] T4 Free SerPl-mCncon 025 Free T4 [Mass/Vol] 1.2 ng/dL Normal 0.9-1.7 [facility] Comment on above: Order Comment: Speci casandra Type: BLOOD SPECIMEN Ordering Facility: [facility] Address: [address] [place] [address] Performed By: #### 2 4323-8, 56323-2, 6-3, 3027 #### [facility] CLIA [id number] [address] [place] [address] [place] TSH SerPl-aCncon 03-30-2024 TSH Qn 1.690 m[IU]/L Normal 0.270-4.200 [facility] Comment on above: Order Comment: Britanyi men Type: BLOOD SPECIMEN Ordering Facility: [facility] Address: [address] [place] [address] Result Comment: If t he patient is , TSH reference range varies by gestational period: First Trimester (weeks 9-12): 0.180-2.990 mIU/L Second Trimester: 0.110-3.980 mIU/L Third Trimester: 0.480-4.710 mIU/L Hank Eason et al. A Practical Approach for the Verifications and Determination of Site- and Trimester-Specific Reference Intervals for Thyroid Function tests in . Thyroid, 2019:29:3:412-420. Philipp Connelly, et al. 2017 Guidelines of the [place] Thyroid Association for the Diagnosis and Management of Thyroid Disease during and the . Thyroid, 2017:27:3:315-389. Performed By: #### 2 4323-8, 90782-0, 3016-3, 3024-7 #### [facility] CLIA [id number] [address] [place] [address] [place] Vit B12 [facility] Cobalamin (Vitamin B12) [Mass/Vol] 907 pg/mL Normal 232-1245 [facility] Comment on above: Order Comment: Speci men Type: BLOOD SPECIMEN Ordering Facility: [facility] Address: [address] [place] [address] Performed By: #### 2 132-9 #### [facility] CLIA [id number] [address] [place] [address] [place] CNOVon 03-12-2024 CNOV Office Visit (FAMPWS) ---- MILANA CORREIA ([id number]) 1990 F [facility] Date Time Provider Department 03/12/24 12:20 PM LORA WILLETT FAMPWS During your visit today, we recorded the following information about you: Pulse Blood pressure Weight Height 65/minute 124/78 80.7 kg 1.65 m Lora Willett APRN.CNP 03/13/2024 11:49 AM Signed Chief Complaint Patient presents with: Establish Care HPI Milana Correia is a 34 year old female who presents here today for Above Complaints.. Here today to establish care. Sees Dr. Morrell for endocrinology. Needs to lose about 30 pounds. Weaned herself off of her Prozac thinking this was the cause but this didn't make any difference. Would like to restart on Prozac-up to 20mg. Eats well. Has been exercising pretty consistently since last July. Dr. Pablo-working on her irregular periods. Doing a transvaginal ultrasound next month. Past medical history, appointments, medications, allergies reviewed. 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 seizures as a child from diabetes complications, last one age 10 Type I (juvenile type) diabetes mellitus without mention of complication, not stated as uncontrolled (HCC) Previous Surgical History PAST SURGICAL HISTORY Procedure Laterality Date ANESTHESIA EYE NOT OTHERWISE SPECIFIED for blocked tear ducts DELIVERY ONLY 07/20/2016 Family History FAMILY HISTORY Problem Relation Age of Onset Osteoporosis Father Diabetes Maternal Grandmother Type 2 Hypertension Paternal Grandmother Hypertension Paternal Grandfather Thyroid Paternal Grandfather Osteoporosis Paternal Grandfather Both Sides of Family Patient Allergies ALLERGIES Allergen Reactions Iv Contrast [Iodine] Vomiting Lovastatin sleep disruption Current Medications Current Outpatient Medications on File Prior to Visit Medication Sig insulin aspart (NOVOLOG) 100 unit/mL soln Inject subcutaneously. In a pump as directed, (uses 45-60 units/day). glucagon,human recombinant(GLUCAGO N EMERGENCY 1 MG INJECTION KIT) use as directed, call if used Breast Pump Device As directed aspirin, enteric coated (ASPIRIN, ENTERIC COATED) 81 mg EC tablet Take 81 mg by mouth once daily. oxyCODONE-acetamino phen (PERCOCET) 5-325 mg tablet Take 1-2 tablets by mouth every 4 hours as needed. VIT/IRON FUMARATE/FA ( ORAL) Take by mouth. No current facility-administer ed medications on file prior to visit. Social History Social History Tobacco Use Smoking status: Never Smokeless tobacco: Never Substance Use Topics Alcohol use: No Drug use: No Review of Symptoms REVIEW OF SYSTEMS See HPI, otherwise negative EXAM: BP 124/78 (BP Site: Left Arm, BP Position: Sitting, BP Cuff Size: Regular Adult) Pulse 65 Ht 165 cm (5' 4.96) Wt 80.7 kg (178 lb) LMP 10/25/2015 SpO2 99% BMI 29.66 kg/m? General Appearance: Well appearing, alert, in no acute distress, well-hydrated, well nourished.. Skin: Skin color, texture, turgor normal, no suspicious rashes or lesions. Head: Normocephalic, no masses, lesions, tenderness or abnormalities. Eyes: Anicteric sclera. Pupils are equally round and reactive to light. Extraocular movements are intact. . Ears: External ears normal, canals clear. Nose/Sinuses: Nares normal, septum midline, mucosa normal, no drainage or sinus tenderness. Oropharynx: Lips, mucosa, and tongue normal, teeth and gums normal, oropharynx normal. Neck: Supple, no adenopathy; thyroid symmetric, normal size, no bruits. Back:no pain to palpation of vertebrae, good flexion and extension, good range of motion, no muscle tenderness, motor and sensory appear to be normal Lungs: Lungs clear to auscultation. No wheezing, rhonchi, rales.. Heart: RRR without murmur, gallop, or rubs. No ectopy. Abdomen: Normal abdominal exam, Abdomen soft, non-tender. Bowel sounds normal. No masses, organomegaly. Extremities: No deformities, edema, skin discoloration, clubbing or cyanosis. Good capillary refill. . Musculoskeletal: No joint swelling, deformity, or tenderness. Peripheral Pulses: Normal. Neurologic: Gait normal. Reflexes normal and symmetric. Sensation grossly intact.. Lymph Nodes: No cervical lymphadenopathy and No supraclavicular lymphadenopathy. Psychiatric: pleasant, cooperative. Health Maintenance List Pneumococcal Vaccine(2 of 2 - PCV) due on 02/20/2007 Depression Screening Never done Anxiety Screening Never done Hepatitis C Screening Never done Diabetic Foot Exam due on 04/15/2015 Dilated Retinal Exam due on 12/13/2015 Urine Albumin:Creatinine Ratio due on 05/03/2016 LDL Cholesterol due on 05/03/2016 HbA1C due on 07/27/2016 Cervical Cancer Screening due on 01/24/2019 Covid-19 Vac (more content not included)... Normal [facility] Syd 03-12-2024 JEAN PIERREN Telephone (FAMPWS) ---- MILANA CORREIA ([id number]) 1990 F [facility] Date Time Provider Department 03/12/24 LORA WILLETT During your visit today, we recorded the following information about you: Lora Willett APRN.CNP 03/12/2024 1:10 PM Signed Please obtain patient's records from Dr. Morrell-endocrinology with [facility] for my review. Lora Willett APRN.Loreto Cody MA 03/12/2024 4:13 PM Signed Records requested BRAD Medina Rachel L, MA 03/19/2024 2:24 PM Signed Consult scanned in EPIC. Virginia Key MA Allergies As of Date: 03/12/2024 Noted Allergy Reaction IV CONTRAST (IODINE) 03/12/2024 11 - Vomiting LOVASTATIN 02/03/2009 Comments: sleep disruption Date Reviewed: 03/12/2024 Reviewed by: Lora Willett APRN.CNP - Fully Assessed Reason for Visit: Request Outside Medical Records [[id number]] Prescriptions as of 03/26/2024 - insulin tug boat engineer cart,aut,G6/7,cntr (OMNIPOD 5 G6-G7 INTRO KT,GEN5,) crtg As directed - FLUoxetine (PROZAC) 10 mg capsule Take 1 capsule by mouth once daily. - FLUoxetine (PROZAC) 20 mg capsule Take 1 capsule by mouth once daily. Patient should start on April 12, 2024. - insulin aspart (NOVOLOG) 100 unit/mL soln Inject subcutaneously. In a pump as directed, (uses 45-60 units/day). 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 [place] [address] OFFICE VISIT Date of Service: 01/23/24 MR#: [id number] Acct: [id number] Name: MILANA CORREIA Rep #: [id number] : 1990 Provider: Dinorah Ambrosio Age/Sex: 33/F Location: [facility] Status: Signed Intake Vital Signs 09/18/23 08:22 01/23/24 09:22 Height 5 ft 5 in 5 ft 5 in Weight: 174 lb 175 lb BMI 28.9 29.1 BP 117/82 H 137/86 H Blood Pressure Location Lt brachial Lt brachial Position Sitting Sitting Pulse 72 90 Pulse Source Monitor Monitor Pulse Oximetry (%) 97 98 Oxygen Delivery Method room air room air Intake Visit Reasons: 4 M FU Chief Complaint: Diabetes Is patient in pain?: No Allergies Iodinated Contrast Media Allergy (Severe, Verified 09/18/23 08:26) Vomiting lovastatin Allergy (Severe, Verified 09/18/23 08:26) Unknown Medications ???Medication ???Instructions ???Recorded ???Confirmed ???Type Novolog U-100 Insulin aspart 100 See Rx Instructions subcut DAILY 01/23/24 01/23/24 Rx unit/mL subcutaneous solution e10.9 #60 mL (insulin aspart U-100) glucagon 3 mg/actuation nasal 3 mg intranasal ONCE #2 ea 01/23/24 01/23/24 Rx [facility] (Baqsimi) [facility] Medical History Diabetes mellitus type 1 Non-proliferative diabetic retinopathy, both eyes HEATHER-1 4G/4G 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 History of miscarriage Diabetes type 1, controlled Surgical History S/P repeat low transverse Hx of bilateral salpingectomy H/O: Family History Mother Breast cancer Grandfather Osteoporosis Grandmother Diabetes Hypertension Social History Smoking Status: Never smoker second hand exposure: No alcohol intake: never substance use type: does not use caffeine: Yes what type of physical activity do you participate in: walking seatbelt use: always do you feel safe at home: Yes 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 A1C is 7.8% (I believe this to be falsely high) GMI is 7.1% about 7.3% over the past 90 days. She is using T-slim insulin pump with Dexcom CGM. Upload shows some highs post meal and over night. She has increased insulin needs during her cycle. She is starting a new job next week. ROS Const Constitutional: No fatigue, weight change or change in appetite Eyes Eyes: No change in vision ENT ENT: No dizziness/vertigo or difficulty swallowing Cardio Cardiology: No chest pain at rest, chest pain with exertion, shortness of breath or palpitations Musc Musculoskeletal: No abnormal gait, joint pain, numbness or tingling Neuro Neurology: No abnormal gait, memory loss, numbness or tingling Psych Psychiatric: No change in appetite, No memory loss and No Thoughts of harming yourself/Others Resp Respiratory: No cough, chest congestion or shortness of breath Gastro GI: No abdominal pain, constipation, diarrhea or difficulty swallowing Genitourinary-Femal e: No burning urination Skin Skin: No itchy eyes or wounds Endo Endocrine: No fatigue or weight change Aller/Imm Allergy/Immunologic : No itchy eyes Exam Const General: cooperative, healthy appearing, comfortable, no acute distress, well developed and not cushingoid Nutritional Appearance: well nourished Orientation: alert, awake and oriented x3 HENMT Head: normal to inspection Ears: hearing grossly normal bilaterally Nose: external nose normal Mouth: oral mucosae normal Eyes General: appearance normal, both eyes and all related structures Alignment and Position: alignment normal Periorbital: periorbital findings normal Eyelids: eyelids normal Conjunctivae: conjunctivae normal Neck Neck: normal visual inspection Neck mass: No Thyroid: thyroid normal Lymphatic: no lymphadenopathy noted Chest Chest palpation inspection: normal inspection of the chest Resp Effort Inspection: normal respiratory effort, able to speak in complete sentences, symmetric chest movement, no audible wheezes and no cough Cardio Rate: regular rate Rhythm: regular rhythm Pulses: posterior tibial pulses present Skin General: no rashes or lesions noted Neuro General: patient alert, patient awake and patient oriented x3 Cranial Nerves: CN's II-XI intact bilaterally Cognition: normal cognition Speech: speech normal Gait: normal gait Motor: muscle tone normal throughout Extrem General: (more content not included)... Normal [facility] - Hematology and Cell countson 01-23-2024 HbA1c (Bld) [Mass fraction] 7.8 % High 4.2-6.3 [facility] Endocrinology Visit Reporton 09-18-2023 Endocrinology Visit Report [facility] [address] [place] [address] [address] [place] [address] OFFICE VISIT Date of Service: 09/18/23 MR#: [id number] Acct: [id number] Name: BRENMILANA ROLANDO Rep #: [id number] : 1990 Provider: Dinorah Ambrosio Age/Sex: 33/F Location: [facility] Status: Signed Intake Vital Signs 05/30/23 09:24 07/26/23 08:22 09/18/23 08:22 Height 5 ft 5 in 5 ft 5 in 5 ft 5 in Weight: 174 lb BMI 28.9 BP 117/82 H Blood Pressure Location Lt brachial Position Sitting Pulse 72 Pulse Source Monitor Pulse Oximetry (%) 97 Oxygen Delivery Method room air Intake Visit Reasons: 4 M FU Chief Complaint: Diabetes Life Teacher Required: No Accompanied by: Self Is patient in pain?: No Allergies Iodinated Contrast Media Allergy (Severe, Verified 09/18/23 08:26) Vomiting lovastatin Allergy (Severe, Verified 09/18/23 08:26) Unknown Medications ???Medication ???Instructions ???Recorded ???Confirmed ???Type glucagon 3 mg/actuation nasal 3 mg intranasal ONCE #2 ea 03/29/22 09/18/23 Rx spray (Baqsimi) Novolog U-100 Insulin aspart 100 See Rx Instructions subcut DAILY 05/30/23 09/18/23 Rx unit/mL subcutaneous solution e10.9 #60 mL (insulin aspart U-100) fluoxetine 20 mg capsule 20 mg PO DAILY 09/18/23 09/18/23 History PFSH Medical History Diabetes mellitus type 1 Non-proliferative diabetic retinopathy, both eyes HEATHER-1 4G/4G 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 History of miscarriage Diabetes type 1, controlled Surgical History S/P repeat low transverse Hx of bilateral salpingectomy H/O: Family History Mother Breast cancer Grandfather Osteoporosis Grandmother Diabetes Hypertension Social History Smoking Status: Never smoker second hand exposure: No alcohol intake: never substance use type: does not use caffeine: Yes what type of physical activity do you participate in: walking seatbelt use: always do you feel safe at home: Yes 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 A1C is 7% She is using t-slim insulin pump, Dexcom CGM and Control IQ. Upload shows some post meal highs. She is doing much better entering [employer] She took a family [place] trip and had a great time. She has background retinopaty. ROS Const Constitutional: No anorexia, excessive sweating, malaise, night sweats, weight change or change in appetite Eyes Eyes: No change in vision ENT ENT: No hearing loss, nasal congestion or difficulty swallowing Cardio Cardiology: No chest pain at rest, excessive sweating, shortness of breath, dyspnea on exertion, irregular heart rhythm or palpitations Musc Musculoskeletal: No abnormal gait, joint pain, numbness or tingling Neuro Neurology: No abnormal gait, memory loss, numbness or tingling Psych Psychiatric: No change in appetite, No memory loss and No Thoughts of harming yourself/Others Resp Respiratory: No cough, chest congestion or shortness of breath Gastro GI: No abdominal pain, constipation, diarrhea or difficulty swallowing Genitourinary-Femal e: No burning urination Skin Skin: No hair loss in leg, itchy eyes, rash or skin ulcer Endo Endocrine: No excessive sweating or weight change Aller/Imm Allergy/Immunologic : No itchy eyes Exam Const General: cooperative, healthy appearing, comfortable, no acute distress, well developed and not cushingoid Nutritional Appearance: well nourished Orientation: alert, awake and oriented x3 HENMT Head: normal to inspection Ears: hearing grossly normal bilaterally Nose: external nose normal Mouth: oral mucosae normal Eyes General: appearance normal, both eyes and all related structures Alignment and Position: alignment normal Periorbital: periorbital findings normal Eyelids: eyelids normal Conjunctivae: conjunctivae normal Neck Neck: normal visual inspection Neck mass: No Thyroid: asymmetrical (right lobe full) Carotids: no bruits Lymphatic: no lymphadenopathy noted Chest Chest palpation inspection: normal inspection of the chest Resp Effort Inspection: normal respiratory effort, able to speak in complete sentences, symmetric chest movement, no audible wheezes and no cough Auscultation: Bilateral: Clear to Auscultation Cardio Rate: regular rate Rhythm: regular rhythm GI Inspection: normal to inspection Skin General: no rashes or lesions (more content not included)... Normal [facility] Clinical Cytopathologist Office Visit Reporton 07-26-2023 Clinical Cytopathologist Office Visit Report [facility] [place] [address] [place] [address] OFFICE VISIT Date of Service: 07/26/23 MR#: [id number] Acct: [id number] Name: MILANA CORREIA Rep #: [id number] : 1990 Provider: VIDHYA Berry Age/Sex: 33/F [place] [facility]: Signed Intake Vital Signs 05/30/23 09:24 07/26/23 08:22 07/26/23 08:22 Height 5 ft 5 in 5 ft 5 in 5 ft 5 in Weight: 168 lb 166 lb 8 oz BMI 27.9 27.7 BP 117/79 120/77 Blood Pressure Location Lt brachial Position Sitting Pulse 78 Pulse Source Monitor Temp 98.4 F Pulse Oximetry (%) 98 Oxygen Delivery Method room air Intake Visit Reasons: GO OVER LAB RESULTS Life Teacher Required: No Is patient in pain?: No Allergies Iodinated Contrast Media Allergy (Severe, Verified 07/26/23 08:22) Vomiting lovastatin Allergy (Severe, Verified 07/26/23 08:22) Unknown Medications ???Medication ???Instructions ???Recorded ???Confirmed ???Type fluoxetine 20 mg capsule 20 mg PO 05/06/21 07/26/23 History glucagon 3 mg/actuation nasal 3 mg intranasal ONCE #2 ea 03/29/22 07/26/23 Rx spray (Baqsimi) Novolog U-100 Insulin aspart 100 See Rx Instructions subcut DAILY 05/30/23 07/26/23 Rx unit/mL subcutaneous solution e10.9 #60 mL (insulin aspart U-100) medroxyprogesterone 10 mg tablet 10 mg PO DAILY #5 tabs 07/18/23 07/26/23 Rx (Provera) Post menopausal: No Patient : No : No Control Method: none PFSH Medical History Diabetes mellitus type 1 Non-proliferative diabetic retinopathy, both eyes HEATHER-1 4G/4G 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 History of miscarriage Diabetes type 1, controlled Surgical History S/P repeat low transverse Hx of bilateral salpingectomy H/O: Family History Mother Breast cancer Grandfather Osteoporosis Grandmother Diabetes Hypertension Social History Smoking Status: Never smoker second hand exposure: No alcohol intake: never substance use type: does not use caffeine: Yes what type of physical activity do you participate in: walking seatbelt use: always do you feel safe at home: Yes 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 This most recent time was last week where she was given a provera challenge and started her period then on Monday. She stopped provera at that time. She reports she started her period about 4 days after taking provera. Menses heavier but tolerable. Hx diabetes I. Not a good candidate for estrogen therapy d/t this. Female Reproductive History Last Menstrual Period: 07/22/23 Cycle Length: >35 Control Method: none History 3 Elective abortions Hx Para 2 Spontaneous abortions Hx # Term Pregnancies Ectopic pregnancies Hx # Pregnancies Multiple births # of living children 2 Past Pregnancies Del. Date Name GA/Weeks Outcome Route Bth Weight Infant Gen Labor Lgth Anesthesia Del Locatn Provider FOB Unknown 07/20/2016 Piper 35 live - 8lbs 1oz Female Jeff SM 09/16/19 Kenyetta live - full term Female [facility] Ma rcanthony ROS Const ROS Unobtainable: All systems reviewed are unremarkable except as noted in H Exam Const General: cooperative, healthy appearing and comfortable Nutritional Appearance: well nourished HENMT Head: normal to inspection Face and sinus: normal facial exam Neck Neck: normal visual inspection Resp Effort Inspection: normal respiratory effort, able to speak in complete sentences and symmetric chest movement Psych Appearance: grossly normal Affect: normal affect Speech and Movement: speech and movement normal Coding Level of Care Code Established Pt Off vis,est,level 2 Patient Type Established Diagnoses Amenorrhea N91.2 Assessment and Plan Assessment and Plan (1) Amenorrhea: Status: Acute Plan: labs reviewed with patient; test negative. Hormone levels stable-see chart. currently on menses. Advised to track/monitor cycles after this menses. If she continues to have extended cycles without menses to call office. Will need to decide next steps to help regulate. Consider ultrasound to further evaluate. She would like to wait and see if her cycles re-regulate after this cycle. Call office with questions or concerns. (more content not included)... Normal [facility] Laboratory - Hematology and Cell countson 01-26-2023 HbA1c (Bld) [Mass fraction] 8.6 % 4.2-6.3 [facility] Basophil percentageOrdered B y: Dr. Morrell on 07-23-2022 Bilirubin [Mass/Vol] 0.50 mg/dL 0.20-1.00 [facility] Comment on above: For patients on eltr ombopag therapy, use of Dimension [place] TBIL is not recommended. Chloride [Moles/Vol] 106 mmol/L 98-107 [facility] Cholesterol [Mass/Vol] 152 mg/dL <200 [facility] Comment on above: <200 mg/dL Desirable 200-240 mg/dL Borderline >240 mg/dL High Risk Glucose [Mass/Vol] 112 mg/dL 74-106 [facility] Comment on above: Fasting Glucose resu lt from 100 to 125 mg/dL suggests IMPAIRED HOMEOSTASIS per A.D.A. criteria. Potassium [Moles/Vol] 3.9 mmol/L 3.5-5.1 [facility] Protein [Mass/Vol] 7.1 g/dL 6.4-8.2 [facility] Sodium [Moles/Vol] 140 mmol/L 136-145 [facility] Triglyceride [Mass/Vol] 40 mg/dL <199 [facility] Comment on above: The drugs N-Acetylcy steine and Metamizole may falsely depress this assay.Serum Triglycerides Reference Interval Normal <150 mg/dL Borderline high 150 - 199 mg/dL High 200 - 499 mg/dL Very High > or = 500 mg/dL Laboratory - Chemistry and C hemistry - challengeOrdered By: Dr. Morrell on 07-23-2022 ALP [Catalytic activity/Vol] 72 U/L 45-117 [facility] ALT [Catalytic activity/Vol] 17 U/L 13-56 [facility] CO2 [Moles/Vol] 25.0 mmol/L 21.0-32.0 [facility] Globulin (S) [Mass/Vol] 3.6 g/dL 2.2-4.2 [facility] Urea nitrogen/Creatinine [Mass ratio] 21.2 mg/mg 10-20 [facility] No Panel InformationOrdered By: Dr. Morrell on 07-23-2022 Estimated GFR (MDRD) Amer 123 mL/min >60 [facility] Comment on above: GFR Calc Estimated GFR (MDRD) Non-Af Amer 102 mL/min >60 [facility] Comment on above: Non- GFR Calc Thyroid Stimulating Hormone (TSH) 2.50 uIU/mL 0.358-3.74 [facility] Urine Microalbumin/Creatini ne Ratio 8.2 mg/g CRE <30 [facility] Vitamin D 25-Hydroxy 41.6 ng/mL [facility] Comment on above: Vitamin D 25(OH) Sta tus Range Deficiency <20 ng/mL (50nmol/L) Insufficiency 20 - 30 ng/mL (50 - 75 nmol/L) Sufficiency 30 - 100 ng/mL (75 - 250 nmol/L) Toxicity >100 ng/mL (>250 nmol/L) Serum or plasma albumin nithya urement (mass/volume)Ordered By: Dr. Morrell on 07-23-2022 Albumin [Mass/Vol] 3.5 g/dL 3.2-5.0 [facility] Serum or plasma albumin/glob ulin mass ratioOrdered By: Dr. Morrell on 07-23-2022 Albumin/Globulin [Mass ratio] 1.0 {ratio} 0.9-2.4 [facility] Serum or plasma calcium nithya urement (mass/volume)Ordered By: Dr. Morrell on 07-23-2022 Calcium [Mass/Vol] 8.3 mg/dL 8.5-10.1 [facility] Serum or plasma cholesterol in HDL measurement (mass/volume)Ordered By: Dr. Morrell on 07-23-2022 Cholesterol in HDL [Mass/Vol] 77 mg/dL >40 [facility] Comment on above: The drugs N-Acetylcy steine and Metamizole may falsely depress this assay. Reference Range HDL <40 mg/dL Low HDL Cholesterol HDL >or= 60 mg/dL High HDL Cholesterol Serum or plasma cholesterol in VLDL measurement (mass/volume)Ordered By: Dr. Morrell on 07-23-2022 Cholesterol in VLDL [Mass/Vol] 8 mg/dL 5-40 [facility] Serum or plasma creatinine m easurement (mass/volume)Ordered By: Dr. Morrell on 07-23-2022 Creatinine [Mass/Vol] 0.71 mg/dL 0.55-1.02 [facility] Comment on above: The validity of the calculated GFR & GFRAA in patients over 70 years has not been determined. Clinical correlation is essential. Serum or plasma low density lipoprotein (LDL) cholesterol measurement (mass/volume)Ordered By: Dr. Morrell on 07-23-2022 Cholesterol in LDL [Mass/Vol] 67 mg/dL 0-130 [facility] Serum or plasma urea nitroge n measurement (mass/volume)Ordered By: Dr. Morrell on 07-23-2022 Urea nitrogen [Mass/Vol] 15 mg/dL 7-18 [facility] Thin prep Papanicolaou smear with manual screeningOrdered By: Dr. Morrell on 07-23-2022 Thin prep Papanicolaou smear with manual screening 15 U/L 15-37 [facility] Thin prep Papanicolaou smear with manual screening 9 5-15 [facility] Thin prep Papanicolaou smear with manual screening 8.3 mg/L NO RANGE EST. [facility] Urine creatinine measurement (mass/volume)Ordered By: Dr. Morrell on 07-23-2022 Creatinine (U) [Mass/Vol] 102.00 mg/dL NO RANGE EST. [facility] Laboratory - Hematology and Cell countson 10-19-2021 HbA1c (Bld) [Mass fraction] 7.8 % [facility] Work Phone: CT ABDOMEN PELVIS WITH IV CO NTRAST ONLYon 06-05-2021 CT ABDOMEN PELVIS WITH IV CONTRAST ONLY EXAMINATION: CT ABDOMEN PELVIS WITH IV CONTRAST ONLY HISTORY: ORDERING SYSTEM PROVIDED HISTORY: Nausea/vomiting, TECHNOLOGIST PROVIDED HISTORY: Illness/Other Reason for exam: Nausea/vomiting Encounter Type: Initial Additional signs and symptoms: 12 hrs ORDERING SYSTEM PROVIDED DIAGNOSIS CODES: COMPARISON: None. TECHNIQUE: CT examination of the abdomen and pelvis following the administration of intravenous contrast. Coronal and sagittal reformations were performed. Dose reduction techniques were achieved by using automated exposure control and/or adjustment of mA and/or kV according to patient size and/or use of iterative reconstruction technique. CONTRAST: IOPAMIDOL 76 % INTRAVENOUS SOLUTION - 75 mL, FINDINGS: The visualized portion of the lung base is clear. The visualized portion of the heart appears unremarkable. There is a small hiatal hernia with debris in it. Evaluation of the visceral organs is limited due to phase of contrast. This study was obtained during the excretory phase. The liver, gallbladder, spleen, pancreas, bilateral adrenal glands appear normal in contour. Thickening of the bilateral adrenal glands are likely related to hyperplasia. The stomach is under distended. The duodenum appears unremarkable. The kidneys are enhancing symmetrically without any hydronephrosis or hydroureter. Contrast is seen in the renal collecting system. There is no bulky retroperitoneal lymph nodes. The stomach is under distended. The duodenum appears unremarkable. No pathologically enlarged gastrohepatic, periportal lymph nodes. The bladder is incompletely distended. The uterus is present. There is thickening of the endometrial stripe, likely related to secretory phase. There is a corpus luteal cyst in the left ovary with associated contour deformity, suggestive of rupture of the cyst. There is a small amount of slightly hyperdense fluid in the dependent aspect of pelvis. This is probably related to rupture of ovarian follicles. Small right ovarian follicles. Evaluation of the GI tract is limited due to lack of oral contrast. The small and large bowel are otherwise normal in caliber. No bowel obstruction. There is a moderate amount of stool burden. Multiple normal caliber fluid-filled small bowel loops are seen in the lower abdomen and pelvis without any abrupt transition point. These are likely related to slow transit. The appendix is normal in caliber. There is no intraperitoneal free air. The abdominal aorta is normal in caliber. No pathologically enlarged common iliac chain, pelvic sidewall lymph nodes. No gross abnormalities of the abdominal wall. There is a fat containing midline ventral hernia. Bone windows demonstrate no suspicious osseous lesion. IMPRESSION: Small amount of slightly hyperdense fluid in the pelvis is likely related to rupture of left-sided corpus luteal cyst. Thickening of the endometrial stripe is likely related to secretory phase. No evidence of bowel obstruction. The appendix is normal in caliber. No hydronephrosis/neph rolithiasis. /r Workstation ID: [id number] Dictated by: YING DEL ROSARIO on Sat Jun 05, 2021 8:00:51 AM EDT Transcribed by: LUZ PARSON on Sat Jun 05, 2021 8:13:17 AM EDT Finalized by: YING DEL ROSARIO on [place] Jun 06, 2021 1:22:03 PM EDT [facility] Comment on above: Order Comment: Injur y/Trauma or Illness?:Illness/Other How long have you had these symptoms (acute/chronic)?:Acute Reason for exam?:Nausea/vomiting Type of Exam?:Initial Additional signs and symptoms?:12 hrs Basophil percentageon 2021 Bilirubin [Mass/Vol] 0.70 mg/dL 0.20-1.00 [facility] Work Phone: Comment on above: For patients on eltr ombopag therapy, use of Dimension [place] TBIL is not recommended. Chloride [Moles/Vol] 106 mmol/L 98-107 [facility] Work Phone: Cholesterol [Mass/Vol] 170 mg/dL <200 [facility] Work Phone: Comment on above: <200 mg/dL Desirable 200-240 mg/dL Borderline >240 mg/dL High Risk Glucose [Mass/Vol] 175 mg/dL 74-106 [facility] Work Phone: Comment on above: Fasting Glucose resu lt greater than or equal to 126 mg/dL suggests DIABETES MELLITUS per A.D.A. criteria. Potassium [Moles/Vol] 4.4 mmol/L 3.5-5.1 [facility] Work Phone: Protein [Mass/Vol] 7.6 g/dL 6.4-8.2 [facility] Work Phone: Sodium [Moles/Vol] 137 mmol/L 136-145 [facility] Work Phone: Triglyceride [Mass/Vol] 56 mg/dL [facility] Work Phone: Comment on above: The drugs N-Acetylcy steine and Metamizole may falsely depress this assay.Serum Triglycerides Reference Interval Normal <150 mg/dL Borderline high 150 - 199 mg/dL High 200 - 499 mg/dL Very High > or = 500 mg/dL Laboratory - Chemistry and C hemistry - challengeon 05-06-2021 ALP [Catalytic activity/Vol] 71 U/L 45-117 [facility] Work Phone: ALT [Catalytic activity/Vol] 17 U/L 13-56 [facility] Work Phone: CO2 [Moles/Vol] 27.0 mmol/L 21.0-32.0 [facility] Work Phone: Globulin (S) [Mass/Vol] 3.7 g/dL 2.2-4.2 [facility] Work Phone: Urea nitrogen/Creatinine [Mass ratio] 14.9 mg/mg 10-20 [facility] Work Phone: Laboratory - Hematology and Cell countson 05-06-2021 HbA1c (Bld) [Mass fraction] 7.3 % [facility] Work Phone: No Panel Informationon 05-06 Estimated GFR (MDRD) Amer 97 mL/min >60 [facility] Work Phone: Comment on above: GFR Calc Estimated GFR (MDRD) Non-Af Amer 80 mL/min >60 [facility] Work Phone: Comment on above: Non- GFR Calc Thyroid Stimulating Hormone (TSH) 1.56 uIU/mL 0.358-3.74 [facility] Work Phone: Vitamin D 25-Hydroxy 31.2 ng/mL [facility] Work Phone: Comment on above: Vitamin D 25(OH) Sta tus Range Deficiency <20 ng/mL (50nmol/L) Insufficiency 20 - 30 ng/mL (50 - 75 nmol/L) Sufficiency 30 - 100 ng/mL (75 - 250 nmol/L) Toxicity >100 ng/mL (>250 nmol/L) Serum or plasma albumin nithya urement (mass/volume)on 05-06-2021 Albumin [Mass/Vol] 3.9 g/dL 3.2-5.0 [facility] Work Phone: Serum or plasma albumin/glob ulin mass ratioon 05-06-2021 Albumin/Globulin [Mass ratio] 1.1 {ratio} 0.9-2.4 [facility] Work Phone: Serum or plasma calcium nithya urement (mass/volume)on 05-06-2021 Calcium [Mass/Vol] 9.0 mg/dL 8.5-10.1 [facility] Work Phone: Serum or plasma cholesterol in HDL measurement (mass/volume)on 05-06-2021 Cholesterol in HDL [Mass/Vol] 82 mg/dL [facility] Work Phone: Comment on above: The drugs N-Acetylcy steine and Metamizole may falsely depress this assay. Reference Range HDL <40 mg/dL Low HDL Cholesterol HDL >or= 60 mg/dL High HDL Cholesterol Serum or plasma cholesterol in VLDL measurement (mass/volume)on 05-06-2021 Cholesterol in VLDL [Mass/Vol] 11 mg/dL 5-40 [facility] Work Phone: Serum or plasma creatinine m easurement (mass/volume)on 05-06-2021 Creatinine [Mass/Vol] 0.87 mg/dL 0.55-1.02 [facility] Work Phone: Comment on above: The validity of the calculated GFR & GFRAA in patients over 70 years has not been determined. Clinical correlation is essential. Serum or plasma low density lipoprotein (LDL) cholesterol measurement (mass/volume)on 05-06-2021 Cholesterol in LDL [Mass/Vol] 77 mg/dL 0-130 [facility] Work Phone: Serum or plasma urea nitroge n measurement (mass/volume)on 05-06-2021 Urea nitrogen [Mass/Vol] 13 mg/dL 7-18 [facility] Work Phone: Thin prep Papanicolaou smear with manual screeningon 05-06-2021 Thin prep Papanicolaou smear with manual screening 10 U/L 15-37 [facility] Work Phone: Thin prep Papanicolaou smear with manual screening 4 5-15 [facility] Work Phone: Hiral 09-26-2018 U Microalb 1558 mcg/dL Normal [facility] ([place]) Comment on above: Performed By: #### M ALBR #### [facility] [address] [place] [address] U Ratio Alb/Cre 6.4 mcg/mg Normal 0.0-24.9 [facility] ([place]) Comment on above: Performed By: #### M ALBR #### [address] [address] U Creatinine 243.0 mg/dL Normal [facility] ([place] Comment on above: Performed By: #### M ALBR #### [address] [address] .GFRon 09-25-2018 GFR 104 ml/min/1.73sqm Normal [facility] ([place]) Comment on above: Result Comment: GFR Population mean for , Non- Americans Ages 20-29 = 116 mL/min/1.73 sq.m. Ages 30-39 = 107 mL/min/1.73 sq.m. Ages 40-49 = 99 mL/min/1.73 sq.m. Ages 50-59 = 93 mL/min/1.73 sq.m. Ages 60-69 = 85 mL/min/1.73 sq.m. Ages 70+ = 75 mL/min/1.73 sq.m. Chronic Kidney Disease: Less than 60 mL/min/1.73 square meters End Stage Renal Disease: Less than 15 mL/min/1.73 square meters Performed By: #### T SH, CMP, GFR #### [address] [address] GFR Non- 85 ml/min/1.73sqm Normal [facility] ([place]) Comment on above: Result Comment: GFR Population mean for , Non- Americans Ages 20-29 = 116 mL/min/1.73 sq.m. Ages 30-39 = 107 mL/min/1.73 sq.m. Ages 40-49 = 99 mL/min/1.73 sq.m. Ages 50-59 = 93 mL/min/1.73 sq.m. Ages 60-69 = 85 mL/min/1.73 sq.m. Ages 70+ = 75 mL/min/1.73 sq.m. Chronic Kidney Disease: Less than 60 mL/min/1.73 square meters End Stage Renal Disease: Less than 15 mL/min/1.73 square meters Performed By: #### T SH, CMP, GFR #### [address] [address] CMPon 09-25-2018 Albumin [Mass/Vol] 4.1 G/dL Normal 3.5-5.0 [facility] ([place]) Comment on above: Performed By: #### T SH, CMP, GFR #### [address] [address] Albumin/Globulin [Mass ratio] 1.2 {ratio} Normal 1.1-2.5 [facility] ([place]) Comment on above: Performed By: #### T SH, CMP, GFR #### [address] [address] ALP [Catalytic activity/Vol] 68 U/L Normal 40-135 [facility] ([place]) Comment on above: Performed By: #### T SH, CMP, GFR #### [address] [address] ALT [Catalytic activity/Vol] 13 U/L Normal 10-35 [facility] ([place] Comment on above: Performed By: #### T SH, CMP, GFR #### [address] [address] AST [Catalytic activity/Vol] 9 U/L Low 10-40 [facility] ([place] Comment on above: Performed By: #### T SH, CMP, GFR #### [address] [address] Bili Total 0.9 mg/dL Normal 0.2-1.0 [facility] ([place] Comment on above: Performed By: #### T SH, CMP, GFR #### [address] [address] Calcium [Mass/Vol] 8.8 mg/dL Normal 8.4-10.2 [facility] ([place]) Comment on above: Performed By: #### T SH, CMP, GFR #### [address] [address] Chloride [Moles/Vol] 104 mmol/L Normal 98-107 [facility] ([place]) Comment on above: Performed By: #### T SH, CMP, GFR #### [address] [address] CO2 [Moles/Vol] 28 mmol/L Normal 22-29 [facility] ([place]) Comment on above: Performed By: #### T SH, CMP, GFR #### [address] [address] Creatinine [Mass/Vol] 0.80 mg/dL Normal 0.55-1.02 [facility] ([place]) Comment on above: Performed By: #### T SH, CMP, GFR #### [address] [address] Electrolyte Balance 9.0 mEq/L Normal [facility] ([place] Comment on above: Performed By: #### T SH, CMP, GFR #### [address] [address] Globulin (S) [Mass/Vol] 3.4 G/dL Normal [facility] ([place]) Comment on above: Performed By: #### T SH, CMP, GFR #### [address] [address] Glucose [Mass/Vol] 157 mg/dL High 70-105 [facility] ([place] Comment on above: Performed By: #### T SH, CMP, GFR #### [address] [address] Potassium [Moles/Vol] 4.0 mmol/L Normal 3.5-5.1 [facility] ([place]) Comment on above: Performed By: #### T SH, CMP, GFR #### [address] [address] Protein [Mass/Vol] 7.5 G/dL Normal 6.4-8.2 [facility] ([place]) Comment on above: Performed By: #### T SH, CMP, GFR #### [address] [address] Sodium [Moles/Vol] 141 mmol/L Normal 136-145 [facility] ([place]) Comment on above: Performed By: #### T SH, CMP, GFR #### [facility] [address] [place] [address] Urea nitrogen [Mass/Vol] 13 mg/dL Normal 7-18 [facility] ([place]) Comment on above: Performed By: #### T SH, CMP, GFR #### [facility] [address] [place] [address] Urea nitrogen/Creatinine [Mass ratio] 16 ratio Normal 7-27 [facility] ([place] Comment on above: Performed By: #### T SH, CMP, GFR #### [facility] [address] [place] [address] TSHon 09-25-2018 TSH Qn 1.73 mcIU/mL Normal 0.36-3.74 [facility] [place] Comment on above: Performed By: #### T SH, CMP, GFR #### [facility] [address] [place] [address] Office Visit: John miranda 11-01-2016 Documentation of current medications (procedure) Done Invalid Interpretation Code [facility] Fall risk assessment No Invalid Interpretation Code [facility] Tobacco smoking status NHIS Never Invalid Interpretation Code [facility] Tobacco use [facility] Never smoker Invalid Interpretation Code [facility] Office Visiton 10-06-2016 Documentation of current medications (procedure) Done Invalid Interpretation Code [facility] Work Phone: Office Visit: Mitchell adams 09-22-2016 Documentation of current medications (procedure) Done Invalid Interpretation Code [facility] Work Phone: Fall risk assessment No Invalid Interpretation Code [facility] Protein mass conc Done [facility] Tobacco smoking status NHIS Never Invalid Interpretation Code [facility] Tobacco smoking status NHIS Never smoker [facility] Tobacco use C[facility] Never smoker Invalid Interpretation Code [facility] Work Phone: Office Visit: Follow up DMon 07-13-2016 Dietary management education, guidance, and counseling (procedure) yes Invalid Interpretation Code [facility] Work Phone: Documentation of current medications (procedure) Done Invalid Interpretation Code [facility] Work Phone: Fall risk assessment No Invalid Interpretation Code [facility] Work Phone: Tobacco smoking status NHIS Never Invalid Interpretation Code [facility] Work Phone: Tobacco use [facility] Never smoker Invalid Interpretation Code [facility] Work Phone: Office Visiton 06-28-2016 Dietary management education, guidance, and counseling (procedure) yes Invalid Interpretation Code [facility] Work Phone: Documentation of current medications (procedure) Done Invalid Interpretation Code [facility] Work Phone: Fall risk assessment No Invalid Interpretation Code [facility] Work Phone: Tobacco smoking status NHIS Never Invalid Interpretation Code [facility] Work Phone: Tobacco use HS Never smoker Invalid Interpretation Code [facility] Work Phone: Office Visit: Follow up deidra marin 06-14-2016 Dietary management education, guidance, and counseling (procedure) yes Invalid Interpretation Code [facility] Work Phone: Documentation of current medications (procedure) Done Invalid Interpretation Code [facility] Work Phone: Fall risk assessment Fall risk assessment Invalid Interpretation Code [facility] Work Phone: Tobacco smoking status [place]IS Never Invalid Interpretation Code [facility] Work Phone: Tobacco use [facility] Never smoker Invalid Interpretation Code [facility] Work Phone: Office Visit: Diabetes follo w upon 05-30-2016 Fall risk assessment No Invalid Interpretation Code [facility] Work Phone: Lab Report: Hemoglobin A1con 05-18-2016 HbA1c 6.3 % Invalid Interpretation Code 4.2-6.3 [facility] Work Phone: Lab Report: Fructosamineon 0 02-28-2016 Fructosamine 273 umol/L 0-285 [facility] GE use only - for [employer] import when terms are not otherwise specified 273 umol/L Invalid Interpretation Code 0-285 [facility] Work Phone: Office Visit: Follow upon Adolescent depression screening assessment Adolescent depression screening assessment Invalid Interpretation Code [facility] Work Phone: Adult depression screening assessment Adult depression screening assessment Invalid Interpretation Code [facility] Office Visit: Transfer of Ca re from [facility] 01-27-2016 eGFR (non-black) mL/min/{1.73_m2} Invalid Interpretation Code [facility] Work Phone: General categories [interpretation] of Cervical or vaginal smear or scraping by Cyto stain 01/25/2016 Invalid Interpretation Code [facility] Work Phone: Glomerular Filtration Rate > 60 [facility] Vital Signs Date Time Vital Sign Value Performing Clinician Facility 04-09-2024 09:33-0500 Body height 165.[address] Andrea Cronin MD Work Phone: [facility] 04-09-2024 09:33-0500 Body mass index (BMI) [Ratio] 28.6 kg/m2 Dr. Andrea Cronin MD Work Phone: [facility] 04-09-2024 09:33-0500 Body weight 78.[address] Andrea Cronin MD Work Phone: [facility] 04-09-2024 09:33-0500 Diastolic blood pressure 75 mm[Hg] Dr. Andrea Cronin MD Work Phone: [facility] 04-09-2024 09:33-0500 Systolic blood pressure 121 mm[Hg] Dr. Andrea Cronin MD Work Phone: [facility] 03-12-2024 12:12-0500 Body height 165 cm Lora Chang MAMMALOGY TEACHER.MACHINE MAINTENANCE MECHANIC Work Phone: [facility] 03-12-2024 12:12-0500 Body mass index (BMI) [Ratio] 29.66 kg/m2 Lora Willett MAMMALOGY TEACHER.MACHINE MAINTENANCE MECHANIC Work Phone: [facility] 03-12-2024 12:12-0500 Body weight 80.74 kg Lora Willett MAMMALOGY TEACHER.MACHINE MAINTENANCE MECHANIC Work Phone: [facility] 03-12-2024 12:12-0500 Diastolic blood pressure 78 mm[Hg] Lora Willett MAMMALOGY TEACHER.MACHINE MAINTENANCE MECHANIC Work Phone: [facility] 03-12-2024 12:12-0500 Heart rate 65 /min Lora Willett MAMMALOGY TEACHER.MACHINE MAINTENANCE MECHANIC Work Phone: [facility] 03-12-2024 12:12-0500 SaO2% (BldA) [Mass fraction] 99 % Lora Willett MAMMALOGY TEACHER.MACHINE MAINTENANCE MECHANIC Work Phone: [facility] 03-12-2024 12:12-0500 Systolic blood pressure 124 mm[Hg] Lora Willett MAMMALOGY TEACHER.MACHINE MAINTENANCE MECHANIC Work Phone: [facility] 01-23-2024 09:22-0500 Body mass index (BMI) [Ratio] 29.1 kg/m2 Dr. Andrea Cronin MD Work Phone: [facility] 01-23-2024 09:22-0500 Body weight 79.[address] Andrea Cronin MD Work Phone: [facility] 01-23-2024 09:22-0500 Diastolic blood pressure 86 mm[Hg] Dr. Andrea Cronin MD Work Phone: [facility] 01-23-2024 09:22-0500 Heart rate 90 /min Dr. Andrea Cronin MD Work Phone: [facility] 01-23-2024 09:22-0500 SaO2% (BldA) [Mass fraction] 98 % Dr. Andrea Cronin MD Work Phone: [facility] 01-23-2024 09:22-0500 Systolic blood pressure 137 mm[Hg] Dr. Andrea Cronin MD Work Phone: [facility] 05-05-2023 09:55-0400 Body height 165.[address] Andrea Cronin Work Phone: [facility] 05-05-2023 09:55-0400 Body mass index (BMI) [Ratio] 27.3 kg/m2 Dr. Andrea Cronin Work Phone: [facility] 05-05-2023 09:55-0400 Body weight 74.[address] Andrea Cronin Work Phone: [facility] 05-05-2023 09:55-0400 Diastolic blood pressure 84 mm[Hg] Dr. Andrea Cronin Work Phone: [facility] 05-05-2023 09:55-0400 Systolic blood pressure 124 mm[Hg] Dr. Andrea Cronin Work Phone: [facility] 01-26-2023 11:16-0500 Body mass index (BMI) [Ratio] 27.3 kg/m2 Dr. Andrea Cronin Work Phone: [facility] 01-26-2023 11:16-0500 Body weight 74.[address] Andrea Cronin Work Phone: [facility] 01-26-2023 11:16-0500 Diastolic blood pressure 80 mm[Hg] Dr. Andrea Cronin Work Phone: [facility] 01-26-2023 11:16-0500 Systolic blood pressure 98 mm[Hg] Dr. Andrea Cronin Work Phone: [facility] 01-26-2023 09:26-0500 Body mass index (BMI) [Ratio] 27.4 kg/m2 Dr. Andrea Cronin Work Phone: [facility] 01-26-2023 09:26-0500 Body temperature 98.7 [degF] Dr. Andrea Cronin Work Phone: [facility] 01-26-2023 09:26-0500 Body weight 74.[address] Andrea Cronin Work Phone: [facility] 01-26-2023 09:26-0500 Diastolic blood pressure 79 mm[Hg] Dr. Andrea Cronin Work Phone: [facility] 01-26-2023 09:26-0500 Heart rate 94 /min Dr. Andrea Cronin Work Phone: [facility] 01-26-2023 09:26-0500 SaO2% (BldA) [Mass fraction] 96 % Dr. Andrea Cronin Work Phone: [facility] 01-26-2023 09:26-0500 Systolic blood pressure 122 mm[Hg] Dr. Andrea Cronin Work Phone: [facility] 07-25-2022 10:21-0400 Body height 165.[address] Andrea Cronin Work Phone: [facility] 07-25-2022 10:21-0400 Body mass index (BMI) [Ratio] 27.7 kg/m2 Dr. Andrea Cronin Work Phone: [facility] 07-25-2022 10:21-0400 Body temperature 98.6 [degF] Dr. Andrea Cronin Work Phone: [facility] 07-25-2022 10:21-0400 Body weight 75.[address] Andrea Cronin Work Phone: [facility] 07-25-2022 10:21-0400 Diastolic blood pressure 90 mm[Hg] Dr. Andrea Cronin Work Phone: [facility] 07-25-2022 10:21-0400 Heart rate 76 /min Dr. Andrea Cronin Work Phone: [facility] 07-25-2022 10:21-0400 Respiratory rate 18 /min Dr. Andrea Cronin Work Phone: [facility] 07-25-2022 10:21-0400 SaO2% (BldA) [Mass fraction] 97 % Dr. Andrea Cronin Work Phone: [facility] 07-25-2022 10:21-0400 Systolic blood pressure 116 mm[Hg] Dr. Andrea Cronin Work Phone: [facility] 01-17-2022 15:29-0500 Body height 165.[address] Andrea Cronin Work Phone: [facility] Work Phone: 01-17-2022 15:28-0500 Body mass index (BMI) [Ratio] 26.9 kg/m2 Dr. Andrea Cronin Work Phone: [facility] Work Phone: 01-17-2022 15:28-0500 Body weight 73.[address] Andrea Cronin Work Phone: [facility] Work Phone: 01-17-2022 15:28-0500 Diastolic blood pressure 80 mm[Hg] Dr. Andrea Cronin Work Phone: [facility] Work Phone: 01-17-2022 15:28-0500 Systolic blood pressure 128 mm[Hg] Dr. Andrea Cronin Work Phone: [facility] Work Phone: 10-19-2021 08:58-0400 Body height 165.[address] Andrea Cronin Work Phone: [facility] Work Phone: 10-19-2021 08:58-0400 Body mass index (BMI) [Ratio] 27.4 kg/m2 Dr. Andrea Cronin Work Phone: [facility] Work Phone: 10-19-2021 08:58-0400 Body temperature 96.4 [degF] Dr. Andrea Cronin Work Phone: [facility] Work Phone: 10-19-2021 08:58-0400 Body weight 74.[address] Andrea Cronin Work Phone: [facility] Work Phone: 10-19-2021 08:58-0400 Diastolic blood pressure 77 mm[Hg] Dr. Andrea Cronin Work Phone: [facility] Work Phone: 10-19-2021 08:58-0400 Heart rate 89 /min Dr. Andrea Cronin Work Phone: [facility] Work Phone: 10-19-2021 08:58-0400 Respiratory rate 18 /min Dr. Andrea Cronin Work Phone: [facility] Work Phone: 10-19-2021 08:58-0400 SaO2% (BldA) [Mass fraction] 96 % Dr. Andrea Cronin Work Phone: [facility] Work Phone: 10-19-2021 08:58-0400 Systolic blood pressure 116 mm[Hg] Dr. Andrea Cronin Work Phone: [facility] Work Phone: 05-06-2021 09:15-0400 Body height 165.[address] Andrea Cronin Work Phone: [facility] Work Phone: 05-06-2021 09:15-0400 Body mass index (BMI) [Ratio] 26.1 kg/m2 Dr. Andrea Cronin Work Phone: [facility] Work Phone: 05-06-2021 09:15-0400 Body temperature 97.1 [degF] Dr. Andrea Cronin Work Phone: [facility] Work Phone: 05-06-2021 09:15-0400 Body weight 71.[address] Andrea Cronin Work Phone: [facility] Work Phone: 05-06-2021 09:15-0400 Diastolic blood pressure 88 mm[Hg] Dr. Andrea Cronin Work Phone: [facility] Work Phone: 05-06-2021 09:15-0400 Heart rate 62 /min Dr. Andrea Cronin Work Phone: [facility] Work Phone: 05-06-2021 09:15-0400 Respiratory rate 18 /min Dr. Andrea Cronin Work Phone: [facility] Work Phone: 05-06-2021 09:15-0400 SaO2% (BldA) [Mass fraction] 97 % Dr. Andrea Cronin Work Phone: [facility] Work Phone: 05-06-2021 09:15-0400 Systolic blood pressure 120 mm[Hg] Dr. Andrea Cronin Work Phone: [facility] Work Phone: 11-01-2016 10:29-0400 BMI (Body Mass Index) 23.13 kg/m2 Vandana Pablo MD [facility] 11-01-2016 10:29-0400 Body Temperature 96.6 [degF] Vandana Pablo MD [facility] 11-01-2016 10:29-0400 BP Diastolic 85 mm[Hg] Vandana Pablo MD [facility] 11-01-2016 10:29-0400 BP Systolic 125 mm[Hg] Vandana Pablo MD [facility] 11-01-2016 10:29-0400 Height 165.1 cm Vandana Pablo MD [facility] 11-01-2016 10:29-0400 Pulse (Heart Rate) 110 /min Vandana Pablo MD [facility] 11-01-2016 10:29-0400 Respiratory Rate 16 /min Vandana Pablo MD [facility] 11-01-2016 10:29-0400 Weight 63.05 kg Vandana Pablo MD [facility] 10-06-2016 09:05-0400 BMI (Body Mass Index) 23.83 kg/m2 Esme Contreras LPN [facility] Work Phone: 10-06-2016 09:05-0400 Body Temperature 98 [degF] Esme Contreras [facility] Work Phone: 10-06-2016 09:05-0400 BP Diastolic 77 mm[Hg] Esme Contreras LPN [facility] Work Phone: 10-06-2016 09:05-0400 BP Systolic 122 mm[Hg] Esme Contreras [facility]PN [facility] Work Phone: 10-06-2016 09:05-0400 Height 165.1 cm Esme Contreras [facility] Work Phone: 10-06-2016 09:05-0400 Pulse (Heart Rate) 83 /min Esme Contreras LPN [facility] Work Phone: 10-06-2016 09:05-0400 Respiratory Rate 18 /min Esme Contreras LPN [facility] Work Phone: 10-06-2016 09:05-0400 Weight 64.96 kg Esme Contreras [facility] Work Phone: 09-22-2016 14:17-0400 BMI (Body Mass Index) 24.63 kg/m2 Vandana Pablo MD [facility] 09-22-2016 14:17-0400 Body Temperature 98 [degF] Vandana Pablo MD [facility] 09-22-2016 14:17-0400 BP Diastolic 67 mm[Hg] Vandana Pablo MD [facility] 09-22-2016 14:17-0400 BP Systolic 110 mm[Hg] Vandana Pablo MD [facility] 09-22-2016 14:17-0400 Height 165.1 cm Vandana Pablo MD [facility] 09-22-2016 14:17-0400 Pulse (Heart Rate) 97 /min Vandana Pablo MD [facility] 09-22-2016 14:17-0400 Respiratory Rate 16 /min Vandana Pablo MD [facility] 09-22-2016 14:17-0400 Weight 67.13 kg Vandana Pablo MD [facility] 07-13-2016 11:32-0400 BMI (Body Mass Index) 28.29 kg/m2 Naima Brenda TODD [facility] Work Phone: 07-13-2016 11:32-0400 Body Temperature 98.49 [degF] Naima Shoalcon GLUER MACHINE OPERATOR [facility] Work Phone: 07-13-2016 11:32-0400 Body Temperature 98.5 [degF] Naima Chalcon GLUER MACHINE OPERATOR [facility] Work Phone: 07-13-2016 11:32-0400 BP Diastolic 85 mm[Hg] Naima Chalcon GLUER MACHINE OPERATOR [facility] Work Phone: 07-13-2016 11:32-0400 BP Systolic 122 mm[Hg] Naima Shoalcon TODD [facility] Work Phone: 07-13-2016 11:32-0400 BSA (Body Surface Area) 1.85 m2 Naima Brenda TODD [facility] Work Phone: 07-13-2016 11:32-0400 Height 165.1 cm Naima Shoalcon TODD [facility] Work Phone: 07-13-2016 11:32-0400 Pulse (Heart Rate) 80 /min Naima Gutierrez NP [facility] Work Phone: 07-13-2016 11:32-0400 Pulse Oximetry 97 % Naima Gutierrez NP [facility] Work Phone: 07-13-2016 11:32-0400 Respiratory Rate 16 /min Naima Gutierrez NP [facility] Work Phone: 07-13-2016 11:32-0400 Weight 77.11 kg Naima Gutierrez NP [facility] Work Phone: 06-28-2016 12:54-0400 BMI (Body Mass Index) 27.42 kg/m2 Naima Gutierrez NP [facility] Work Phone: 06-28-2016 12:54-0400 BP Diastolic 77 mm[Hg] Naima Gutierrez NP [facility] Work Phone: 06-28-2016 12:54-0400 BP Systolic 117 mm[Hg] Naima Gutierrez NP [facility] Work Phone: 06-28-2016 12:54-0400 Pulse (Heart Rate) 102 /min Naima Gutierrez NP [facility] Work Phone: 06-28-2016 12:54-0400 Pulse Oximetry 97 % Naima Gutierrez NP [facility] Work Phone: 06-28-2016 12:54-0400 Weight 74.75 kg Naima Gutierrez NP [facility] Work Phone: 06-14-2016 10:35-0400 BMI (Body Mass Index) 26.26 kg/m2 Marianna Weinberg LPN [facility] Work Phone: 06-14-2016 10:35-0400 BP Diastolic 73 mm[Hg] Marianna Weinberg LPN [facility] Work Phone: 06-14-2016 10:35-0400 BP Systolic 111 mm[Hg] Marianna Weinberg LPN [facility] Work Phone: 06-14-2016 10:35-0400 BSA (Body Surface Area) 1.79 m2 Marianna Aguilar End[facility] Work Phone: 06-14-2016 10:35-0400 Height 165.1 cm Marianna Aguilar [facility] Work Phone: 06-14-2016 10:35-0400 Pulse (Heart Rate) 96 /min Marianna Aguilar En docrinology Work Phone: 06-14-2016 10:35-0400 Pulse Oximetry 98 % Marianna Hilariooster [facility] Work Phone: 06-14-2016 10:35-0400 Respiratory Rate 16 /min Marianna Aguilar Endo cr[facility] Work Phone: 06-14-2016 10:35-0400 Weight 71.58 kg Marianna Hilariooster [facility]oc [facility] Work Phone: 05-30-2016 10:59-0400 Body Temperature 98 [degF] Marianna Weinberg LPN [facility] Work Phone: 05-30-2016 10:59-0400 Body Temperature 98.01 [degF] Marianna Weinberg LPN [facility] Work Phone: 05-30-2016 10:59-0400 Height 165.1 cm Marianna Weinberg LPN [facility] Work Phone: 05-30-2016 10:59-0400 Weight 69.4 kg Marianna Weinberg LPN [facility] Work Phone: Encounters Encounter Date Encounter Type Care Provider Facility Start: 07-23-2024 ambulatory [facility] Facility:[facility] Start: 07-23-2024 End: 07-23-2024 ambulatory [facility] Facility:[facility] Start: 04-30-2024 End: 04-30-2024 Telephone encounter Preston Kang MD Work Phone: [facility] Home Delivery Comment on above: Medication Problem ( Novolog) Start: 04-29-2024 End: 04-29-2024 Refill Mariah Gutierrez Work Phone: [facility] Comment on above: Refill Request Start: 04-19-2024 End: 04-19-2024 ambulatory Gerald Encinas MD Work Phone: Medical Management Department Start: 04-16-2024 ambulatory [facility] Facility :[facility] Start: 04-09-2024 Encounter for gynecological examination (general) (routine) without abnormal [facility] Start: 04-09-2024 End: 04-09-2024 Patient encounter procedure Raquel Hoa GLUER MACHINE OPERATOR-C [facility] Work Phone: Start: 04-09-2024 End: 04-09-2024 Patient encounter status Raquel Hoa GLUER MACHINE OPERATOR-C [facility] Start: 04-09-2024 End: 04-09-[address] 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 Start: 04-05-2024 End: 04-05-2024 Coordination of care plan Lou [facility] Comment on above: CARE COORDINATION Start: 03-30-2024 End: 03-30-2024 ambulatory LORA WILLETT Facility:[facility] Start: 03-30-2024 Encounter for genera l adult medical examination without abnormal findings LORA WILLETT [facility] Start: 03-12-2024 End: 03-26-2024 Telephone encounter Lora Willett APRN.CNP Work Phone: [facility] Comment on above: Request Outside [facility] alfie Records Start: 03-12-2024 End: 03-12-2024 ambulatory LORA WILLETT Facility:[facility] Start: 03-12-2024 End: 03-12-2024 Office outpatient visit 25 minutes Lora Chang SCOTTMACHINE MAINTENANCE MECHANIC Work Phone: [facility] [place] Comment on above: Type 1 diabetes kasey itus without complication (HCC) (Primary Dx); Screening for depression; Encounter for screening examination for other mental health and behavioral disorders; GLENNA (generalized anxiety disorder); Well adult exam; Screening for thyroid disorder; Screening for lipid disorders; Encounter for vitamin deficiency screening Start: 03-12-2024 End: 03-12-2024 Patient encounter status Lora Moalex LYNN.MACHINE MAINTENANCE MECHANIC Work Phone: [facility] Start: 01-23-2024 End: 01-23-[address] Edmundo Morrell MD -[facility] Work Phone: Start: 01-23-2024 End: 01-23-2024 ambulatory Edmundo Morrell Facility:[facility] Start: 09-18-2023 End: 09-18-2023 ambulatory Edmundo Morrell Facility:[facility] Start: 07-26-2023 End: 07-26-2023 ambulatory [facility] Facility:[facility] Start: 05-12-2023 End: 05-12-[address] Andrea Cronin Work Phone: [facility] Work Phone: Start: 05-12-2023 End: 05-12-[address] Andrea Cronin Work Phone: [facility] Work Phone: Start: 05-05-2023 End: 05-05-[address] Andrea Cronin Work Phone: [facility] Work Phone: Start: 01-26-2023 End: 01-26-[address] Andrea Cronin Work Phone: [facility] Work Phone: Start: 01-26-2023 End: 01-26-[address] Andrea Cronin Work Phone: [facility] Work Phone: Start: 07-25-2022 End: 07-25-[address] Andrea Cronin Work Phone: [facility] Start: 07-23-2022 End: 07-23-[address] Andrea Cronin Work Phone: [facility] Work Phone: Start: 07-23-2022 End: 07-23-[address] [facility] Start: 01-17-2022 End: 01-17-[address] Andrea Cronin Work Phone: [facility] Work Phone: Start: 01-17-2022 End: 01-17-[address] [facility] Start: 01-17-2022 End: 01-17-[address] Andrea Cronin Work Phone: [facility] Start: 10-19-2021 End: 10-19-[address] Andrea Cronin Work Phone: [facility] Start: 06-05-2021 End: 06-05-2021 Emergency department patient visit KAILEY MARTINEZ [facility] Start: 05-06-2021 End: 05-06-[address] [facility] Cron[facility] Procedures Date Procedure Procedure Detail Performing Clinician Start: 03-12-2024 Adult depression scr eening assessment Lora Willett MAMMALOGY TEACHER.MACHINE MAINTENANCE MECHANIC Work Phone: Start: 05-12-2023 Bilateral mammography Jing Cronin Work Phone: Start: 05-12-[address] Andrea Cronin Work Phone: Start: 09-22-2016 End: 09-25-2016 Insert intrauterine device Vandana rapp MD Work Phone: Start: 09-22-2016 End: 09-25-2016 Levonorgestrel-releasing intrauterine contraceptive system (mirena), 52 mg Vandana Pablo MD Work Phone: Start: 07-13-2016 End: 07-13-2016 Dietary management education, guidance, and counseling Vandana Pablo MD Start: 05-18-2016 End: 05-19-2016 HbA1c Naima Gutierrez NP Work Phone: Start: 02-24-2016 End: 02-29-2016 Fructosamine Naima Gutierrez NP Work Phone: Plan of Treatment Date Care Activity Detail Author Start: 07-01-2029 Urine microalbumin profile DTaP,Tdap,Td Vaccine (3 - Td or Tdap) [facility] Start: 03-30-2025 Hepatitis B surface antibody level LDL Cholesterol [facility] Start: 03-12-2025 Annual PCP Team Harness Cleaner nancy Disease Visit Annual PCP Team Chronic Disease Visit [facility] Start: 03-12-2025 Anxiety Screening Anxiety Screening [facility] Start: 03-12-2025 Covid-19 Vaccine () Covid-19 Vaccine () [facility] Comment on above: Postponed from 10/21 (Declined at this time) Start: 03-12-2025 Depression Screening Depression Scre ening [facility] Start: 03-12-2025 Hepatitis C screening Hepatitis C Sc felipe [facility] Comment on above: Postponed from 02/23 (Declined at this time) Start: 09-27-2024 Hemoglobin A1c measurement HbA1C [facility] Start: 03-12-2024 End: 06-11-2024 25-hydroxyvitamin D3 [Mass/volume] in Serum or Plasma VITAMIN D 25 HYDROXY Lab Routine Well adult exam Encounter for vitamin deficiency screening Expected: 03/12/2024, Expires: 06/11/2024 [facility] Comment on above: Expected: 03/12/2024 , Expires: 06/11/2024 Start: 03-12-2024 End: 06-11-2024 CBC panel - Blood by Automated count COMPLETE BLOOD COUNT Lab Routine Type 1 diabetes mellitus without complication (HCC) Well adult exam Expected: 03/12/2024, Expires: 06/11/2024 [facility] Work Phone: Comment on above: Expected: 03/12/2024 , Expires: 06/11/2024 Start: 03-12-2024 End: 06-11-2024 Cobalamin (Vitamin B12) [Mass/volume] in Serum or Plasma VITAMIN B12 Lab Routine Well adult exam Encounter for vitamin deficiency screening Expected: 03/12/2024, Expires: 06/11/2024 [facility] Comment on above: Expected: 03/12/2024 , Expires: 06/11/2024 Start: 03-12-2024 End: 06-11-2024 Comprehensive metabolic 2000 panel - Serum or Plasma COMPREHENSIVE METABOLIC PANEL Lab Routine Type 1 diabetes mellitus without complication (HCC) Well adult exam Expected: 03/12/2024, Expires: 06/11/2024 [facility] Comment on above: Expected: 03/12/2024 , Expires: 06/11/2024 Start: 03-12-2024 End: 06-11-2024 Hemoglobin A1c in Blood HEMOGLOBIN A1C Lab Routine Type 1 diabetes mellitus without complication (HCC) Well adult exam Expected: 03/12/2024, Expires: 06/11/2024 [facility] Comment on above: Expected: 03/12/2024 , Expires: 06/11/2024 Start: 03-12-2024 End: 06-11-2024 Lipid 1996 panel - Serum or Plasma LIPID PANEL BASIC Lab Routine Well adult exam Screening for lipid disorders Expected: 03/12/2024, Expires: 06/11/2024 [facility] Comment on above: Expected: 03/12/2024 , Expires: 06/11/2024 Start: 03-12-2024 End: 06-11-2024 Thyrotropin [Units/volume] in Serum or Plasma THYROID STIMULATING HORMONE Lab Routine Well adult exam Screening for thyroid disorder Expected: 03/12/2024, Expires: 06/11/2024 [facility] Comment on above: Expected: 03/12/2024 , Expires: 06/11/2024 Start: 03-12-2024 End: 06-11-2024 Thyroxine (T4) free [Mass/volume] in Serum or Plasma T4 FREE/FREE THYROXINE Lab Routine Well adult exam Screening for thyroid disorder Expected: 03/12/2024, Expires: 06/11/2024 [facility] Comment on above: Expected: 03/12/2024 , Expires: 06/11/2024 Start: 01-17-2022 Liquid based cervica l cytology screening [facility] Work Phone: Start: 01-24-2019 Screening for malign ant neoplasm of cervix Cervical Cancer Screening [facility] Start: 11-01-2016 End: 11-01-2016 Appointment Appointment [facility] [place] Start: 10-06-2016 End: 10-06-2016 Appointment Appointment [facility] Work Phone: Start: 10-06-2016 End: 10-09-2016 *CMP Complete Metabolic Panel *CMP Complete Metabolic Panel [facility] Work Phone: Start: 10-06-2016 End: 10-09-2016 *Microalbumin, Creatine Ratio, rand urine *Microalbumin, Creatine Ratio, rand urine [facility] Work Phone: Start: 10-06-2016 End: 10-09-2016 HbA1c [facility] Work Phone: Start: 07-27-2016 Hemoglobin A1c measurement HbA1C [facility] Start: 07-13-2016 End: 07-13-2016 Appointment Appointment [facility] Work Phone: Start: 06-28-2016 End: 06-28-2016 Appointment Appointment [facility] Work Phone: Start: 05-18-2016 End: 05-19-2016 HbA1c *HgA1C [facility] Work Phone: Start: 05-03-2016 Hepatitis B screening Urine Albumin:Creatinine Ratio [facility] Start: 05-03-2016 Hepatitis B surface antibody level LDL Cholesterol [facility] Start: 04-13-2016 End: 04-13-2016 Fructosamine *Fructosamine [facility] Work Phone: Start: 03-09-2016 End: 03-09-2016 Fructosamine *Fructosamine [facility] Work Phone: Start: 02-24-2016 End: 02-29-2016 Fructosamine *Fructosamine [facility] Work Phone: Start: 12-13-2015 Glaucoma screening Dilated Retinal E xam [facility] Start: 04-15-2015 Diabetic foot examination Diabetic Foot Exam [facility] Start: 02-20-2007 Pneumococcal vaccination Pneumococcal Vaccine (2 of 2 - PCV) [facility] Path report.final Dx Spec [facility] Work Phone: [place] [facility] Immunizations Immunization Date Immunization Notes Care Provider Fa [facility] 01-15-2020 influenza, injectable,quadrivalent, preservative free, pediatric Dr. Andrea Cronin Work Phone: [facility] 01-15-2020 Flucelvax Quad 2019- 2020 (PF) (flu vac qs 2020(4 yr up)CD(PF)) 60 mcg ([address] Andrea Cronin Work Phone: [facility] Work Phone: 07-02-2019 diphtheria, tetanus toxoids and acellular pertussis vaccine, unspecified formulation Dr. Andrea Cronin Work Phone: [facility] Work Phone: 07-02-2019 tetanus toxoid, redu hans diphtheria toxoid, and acellular pertussis vaccine, adsorbed Dr. Andrea Cronin Work Phone: [facility] 05-18-2016 tetanus toxoid, redu hans diphtheria toxoid, and acellular pertussis vaccine, adsorbed Loragoldie Mesaman MAMMALOGY TEACHER.MACHINE MAINTENANCE MECHANIC Work Phone: [facility] 02-03-2009 novel influenza-H1N1 -09, all formulations Lora Chang MAMMALOGY TEACHER.MACHINE MAINTENANCE MECHANIC Work Phone: [facility] 12-01-2008 influenza virus vacc ine, unspecified formulation Lora Willett MAMMALOGY TEACHER.MACHINE MAINTENANCE MECHANIC Work Phone: [facility] Work Phone: 02-20-2006 pneumococcal polysaccharide vaccine, 23 valent Lora Willett MAMMALOGY TEACHER.MACHINE MAINTENANCE MECHANIC Work Phone: [facility] Payers Date Payer Category Payer Private Health Insurance [id number] 2024 Unknown [id number] 2024 Private Health Insurance [id number] 2023 Self-pay [id number] 2015 Unknown MMO MMO [employer] PPO [id number] 2015-Present [phone] [address] [place] [address] PPO [id number] 2014 Unknown [id number] 1990 Unknown [id number] 02 Unknown [id number] Unknown [id number] 62 Unknown [id number] 62 Unknown [id number] 62 Unknown [id number] 62 Unknown [id number] 62 Unknown [id number] 62 Unknown [id number] 62 Unknown [id number] 62 Social History Date Type Detail Facility Start: 05-06-2021 End: 05-05-2023 Tobacco smoking status NHIS Unknown if ever smoked [facility] Start: 12-11-2018 Non-smoker [facility] Start: 1990 Sex Assigned At Female [facility] Start: 05-30-2023 End: 03-12-2024 Tobacco smoking status OKIS Never smoked tobacco [facility] Start: 03-12-2024 Tobacco use and exposure Smoke less tobacco non-user [facility] Start: 03-12-2024 Alcoholic beverage intake Curr ent non-drinker of alcohol (finding) [facility] Start: 03-10-2024 End: 03-12-2024 History of Social function [facility] Start: 03-10-2024 End: 03-12-2024 [facility] Diligent Board Member Services [facility] Has the [employer], [employer], or water [employer] threatened to shut off services in your home in past 12Mo No [facility] Do you belong to any clubs or organizations such as jain groups, unions, fraternal or athletic groups, or school groups? Yes [facility] How often do you att end meetings of the clubs or organizations you belong to? Patient declined [facility] Are you now , , , , never or living with a partner? [facility] How often to you hav e a drink containing alcohol? Monthly or less [facility] How many standard dr inks containing alcohol do you have on a typical day? 1 or 2 [facility] How often do you hav e 6 or more drinks on 1 occasion? Never [facility] Do you feel stress - tense, restless, nervous, or anxious, or unable to sleep at night because your mind is troubled all the time - these days [OSQ] To some extent [facility] (I/We) worried wheth er (my/our) food would run out before (I/we) got money to buy more. Never true [facility] Start: 1990 Sex assigned at Not on file [facility] Start: 04-26-2024 Sex Female (finding) [facility] Medical Equipment Procedure Code Equipment Code Equipment Origin al Text Equipment Identifier Dates LANCETS FREESTYLE LANCET S MISC Lancets (Freesty le Lancets) 28 gauge misc Start: 2017 Pen Needle, Diab etic (Easy Comfort Pen [place]) 31 gauge x 5/16 needle Start: 06-13-2017 Blood Sugar Diagnostic (Freestyle Lite Strips) strip Start: 2017 End: 10-31-2019 Lancets (Freesty le Lancets) 28 gauge misc Start: 2017 Pen Needle, Diab etic (Easy Comfort Pen [place]) 31 gauge x 5/16 needle Start: 06-13-2017 Blood Sugar Diagnostic (Freestyle Lite Strips) strip Start: 2017 End: 10-31-2019 Lancets (Freesty le Lancets) 28 gauge misc Start: 2017 Pen Needle, Diab etic (Easy Comfort Pen [place]) 31 gauge x 5/16 needle Start: 06-13-2017 Blood Sugar Diagnostic (Freestyle Lite Strips) strip Start: 2017 End: 10-31-2019 Lancets (Freesty le Lancets) 28 gauge misc Start: 2017 Pen Needle, Diab etic (Easy Comfort Pen [place]) 31 gauge x 5/16 needle Start: 06-13-2017 Blood Sugar Diagnostic (Freestyle Lite Strips) strip Start: 2017 End: 10-31-2019 Lancets (Freesty le Lancets) 28 gauge misc Start: 2017 Pen Needle, Diab etic (Easy Comfort Pen [place]) 31 gauge x 5/16 needle Start: 06-13-2017 Blood Sugar Diagnostic (Freestyle Lite Strips) strip Start: 2017 End: 10-31-2019 Blood Sugar Diagnostic (Freestyle Lite Strips) strip Start: 2017 End: 10-31-2019 Lancets (Freesty le Lancets) 28 gauge misc Start: 2017 End: 05-30-2023 Pen Needle, Diab etic (Easy Comfort Pen [place]) 31 gauge x 5/16 needle Start: 06-13-2017 End: 05-30-2023 Functional Status Date Assessment Result Facility 04-15-2014 Are you deaf, or do you have serious difficulty hearing No 04/15/2014 2:46 PM EST Martine Galarza LPN No [facility] 04-15-2014 Are you blind, or do you have serious difficulty seeing, even when wearing glasses No 04/15/2014 2:46 PM EST Martine Galarza LPN No [facility] 04-15-2014 Do you have serious difficulty walking or climbing stairs No 04/15/2014 2:46 PM Martine Valera LPN No [facility] 04-15-2014 Do you have difficul ty dressing or bathing No 04/15/2014 2:46 PM Martine Valera LPN No [facility] 04-15-2014 Because of a physica l, mental, or emotional condition, do you have difficulty doing errands alone such as visiting a physician's office or shopping No 04/15/2014 2:46 PM EST Martine Galarza LPN No [facility] Mental Status Date Assessment Result Facility 04-15-2014 Because of a physica l, mental, or emotional condition, do you have serious difficulty concentrating, remembering, or making decisions No 04/15/2014 2:46 PM EST Martine Galarza LPN No [facility] Clinical Notes 01-23-2024 to 04-30-2024 Telephone Encounter - Preston Kang MD - 04/30/2024 2:36 PM EDTTelephone Encounter - Preston Kang MD - 04/30/2024 2:36 PM Lora Waldron APRN.[facility] - 03/12/2024 12:28 PM EST Note Date & Type Note Facility 04-30-2024 Telephone encounter Note The following approved medication requests have been transmitted electronically. Requested Prescriptions Signed Prescriptions Disp Refills insulin lispro (HUMALOG U-100 INSULIN) 100 unit/mL injection 60 mL 3 Si units daily for insulin pump use. Authorizing Provider: PRESTON KANG MD [facility] 04-30-2024 Miscellaneous Notes The following approved medication requests have been transmitted electronically. Requested Prescriptions Signed Prescriptions Disp Refills insulin lispro (HUMALOG U-100 INSULIN) 100 unit/mL injection 60 mL 3 Si units daily for insulin pump use. Authorizing Provider: PRESTON KANG MD Prescription for Novolog is not covered by patient's insurance and rejects as a non-formulary product. Can [facility] receive a new E-Script for Humalog, if appropriate? Please discuss any therapy changes with patient as necessary. Thank you! Manny Harley RPh [facility] [phone] documented in this encounter [facility] 04-30-2024 Telephone encounter Note Prescription for Novolog is not covered by patient's insurance and rejects as a non-formulary product. Can [facility] receive a new E-Script for Humalog, if appropriate? Please discuss any therapy changes with patient as necessary. Thank you! Manny Harley RPh [facility] [phone] [facility] 04-29-2024 Telephone encounter Note Patient has requested attached RX be re-filled at [facility] instead of previously used pharmacy. Due to market staffing shortages, [id number] transfers can cause delays due to longer hold times. Please send new RX directly to our pharmacy per patient request. Once approved, please discontinue old orders in Epic to mitigate any duplicate therapy. Thank you! [facility] [phone] (phone) [phone] (fax) [facility] 04-29-2024 Miscellaneous Notes Patient has requested attached RX be re-filled at [facility] instead of previously used pharmacy. Due to market staffing shortages, [id number] transfers can cause delays due to longer hold times. Please send new RX directly to our pharmacy per patient request. Once approved, please discontinue old orders in Epic to mitigate any duplicate therapy. Thank you! [facility] [phone] (phone) [phone] (fax) documented in this encounter [facility] 04-19-2024 Note Formatting of this n ote might be different from the original. Can we except her A1Cs range 7-7.8 as meeting the goal? Yes, approve as new range for member given DMT1 [facility] Work Phone: 04-19-2024 Miscellaneous Notes Can we except her A1Cs range 7-7.8 as meeting the goal? Yes, approve as new range for member given DMT1 documented in this encounter [facility] 03-19-2024 Telephone encounter Note Consult scanned in [employer]. Virginia Key MA [facility] 03-19-2024 Miscellaneous Notes Consult scanned in [employer]. Vriginia Key MA Records requested Loreto Lay MA Please obtain patient's records from Dr. Morrell-endocrinology with [facility] for my review. Lora Willett APRN.CNP documented in this encounter [facility] 03-12-2024 Telephone encounter Note Records requested Loreto Lay MA [facility] 03-12-2024 Telephone encounter Note Please obtain patient's records from Dr. Morrell-endocrinology with [facility] for my review. Lora Willett APRN.CNP [facility] 03-12-2024 Note HNO ID: [id number] Author: LORA WILLETT APRN.CNP Service: ? Author Type: Nurse Practitioner Type: Progress Notes Filed: 03/13/2024 11:49 Note Text: Chief Complaint Patient presents with: Establish Care HPI Milana Correia is a 34 year old female who presents here today for Above Complaints.. Here today to establish care. Sees Dr. Morrell for endocrinology. Needs to lose about 30 pounds. Weaned herself off of her Prozac thinking this was the cause but this didn't make any difference. Would like to restart on Prozac-up to 20mg. Eats well. Has been exercising pretty consistently since last July. Dr. Pablo-working on her irregular periods. Doing a transvaginal ultrasound next month. Past medical history, appointments, medications, allergies reviewed. 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 seizures as a child from diabetes complications, last one age 10 Type I (juvenile type) diabetes mellitus without mention of complication, not stated as uncontrolled (HCC) Previous Surgical History PAST SURGICAL HISTORY Procedure Laterality Date ANESTHESIA EYE NOT OTHERWISE SPECIFIED for blocked tear ducts DELIVERY ONLY 07/20/2016 Family History FAMILY HISTORY Problem Relation Age of Onset Osteoporosis Father Diabetes Maternal Grandmother Type 2 Hypertension Paternal Grandmother Hypertension Paternal Grandfather Thyroid Paternal Grandfather Osteoporosis Paternal Grandfather Both Sides of Family Patient Allergies ALLERGIES Allergen Reactions Iv Contrast [Iodine] Vomiting Lovastatin sleep disruption Current Medications Current Outpatient Medications on File Prior to Visit Medication Sig insulin aspart (NOVOLOG) 100 unit/mL soln Inject subcutaneously. In a pump as directed, (uses 45-60 units/day). glucagon,human recombinant(GLUCAGON EMERGENCY 1 MG INJECTION KIT) use as directed, call if used Breast Pump Device As directed aspirin, enteric coated (ASPIRIN, ENTERIC COATED) 81 mg EC tablet Take 81 mg by mouth once daily. oxyCODONE-acetaminophen (PERCOCET) 5-325 mg tablet Take 1-2 tablets by mouth every 4 hours as needed. VIT/IRON FUMARATE/FA ( ORAL) Take by mouth. No current facility-administered medications on file prior to visit. Social History Social History Tobacco Use Smoking status: Never Smokeless tobacco: Never Substance Use Topics Alcohol use: No Drug use: No Review of Symptoms REVIEW OF SYSTEMS See HPI, otherwise negative EXAM: BP 124/78 (BP Site: Left Arm, BP Position: Sitting, BP Cuff Size: Regular Adult) Pulse 65 Ht 165 cm (5' 4.96) Wt 80.7 kg (178 lb) LMP 10/25/2015 SpO2 99% BMI 29.66 kg/m? General Appearance: Well appearing, alert, in no acute distress, well-hydrated, well nourished.. Skin: Skin color, texture, turgor normal, no suspicious rashes or lesions. Head: Normocephalic, no masses, lesions, tenderness or abnormalities. Eyes: Anicteric sclera. Pupils are equally round and reactive to light. Extraocular movements are intact. . Ears: External ears normal, canals clear. Nose/Sinuses: Nares normal, septum midline, mucosa normal, no drainage or sinus tenderness. Oropharynx: Lips, mucosa, and tongue normal, teeth and gums normal, oropharynx normal. Neck: Supple, no adenopathy; thyroid symmetric, normal size, no bruits. Back:no pain to palpation of vertebrae, good flexion and extension, good range of motion, no muscle tenderness, motor and sensory appear to be normal Lungs: Lungs clear to auscultation. No wheezing, rhonchi, rales.. Heart: RRR without murmur, gallop, or rubs. No ectopy. Abdomen: Normal abdominal exam, Abdomen soft, non-tender. Bowel sounds normal. No masses, organomegaly. Extremities: No deformities, edema, skin discoloration, clubbing or cyanosis. Good capillary refill. . Musculoskeletal: No joint swelling, deformity, or tenderness. Peripheral Pulses: Normal. Neurologic: Gait normal. Reflexes normal and symmetric. Sensation grossly intact.. Lymph Nodes: No cervical lymphadenopathy and No supraclavicular lymphadenopathy. Psychiatric: pleasant, cooperative. Health Maintenance List Pneumococcal Vaccine(2 of 2 - PCV) due on 02/20/2007 Depression Screening Never done Anxiety Screening Never done Hepatitis C Screening Never done Diabetic Foot Exam due on 04/15/2015 Dilated Retinal Exam due on 12/13/2015 Urine Albumin:Creatinine Ratio due on 05/03/2016 LDL Cholesterol due on 05/03/2016 HbA1C due on 07/27/2016 Cervical Cancer Screening due on 01/24/2019 Covid-19 Vaccine(2023- season) due on 03/12/2025 Annual PCP Team Chronic Disease Visit due on 03/12/2025 DTaP,Tdap,Td Vaccine(3 - Td or Tdap) due on 07/01/2029 Hepatitis B Vaccine Completed Influenza Vaccine Completed HIV Screening Completed HPV Vaccine Aged O (more content not included)... [facility] 03-12-2024 History of Presen t illness Narrative Chief Complaint Patient presents with: Establish Care HPI Milana Correia is a 34 year old female who presents here today for Above Complaints.. Here today to establish care. Sees Dr. Morrell for endocrinology. Needs to lose about 30 pounds. Weaned herself off of her Prozac thinking this was the cause but this didn't make any difference. Would like to restart on Prozac-up to 20mg. Eats well. Has been exercising pretty consistently since last July. Dr. Pablo-working on her irregular periods. Doing a transvaginal ultrasound next month. Past medical history, appointments, medications, allergies reviewed. 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 seizures as a child from diabetes complications, last one age 10 Type I (juvenile type) diabetes mellitus without mention of complication, not stated as uncontrolled (HCC) Previous Surgical History PAST SURGICAL HISTORY Procedure Laterality Date ANESTHESIA EYE NOT OTHERWISE SPECIFIED for blocked tear ducts DELIVERY ONLY 07/20/2016 Family History FAMILY HISTORY Problem Relation Age of Onset Osteoporosis Father Diabetes Maternal Grandmother Type 2 Hypertension Paternal Grandmother Hypertension Paternal Grandfather Thyroid Paternal Grandfather Osteoporosis Paternal Grandfather Both Sides of Family Patient Allergies ALLERGIES Allergen Reactions Iv Contrast [Iodine] Vomiting Lovastatin sleep disruption Current Medications Current Outpatient Medications on File Prior to Visit Medication Sig insulin aspart (NOVOLOG) 100 unit/mL soln Inject subcutaneously. In a pump as directed, (uses 45-60 units/day). glucagon,human recombinant(GLUCAGON EMERGENCY 1 MG INJECTION KIT) use as directed, call if used Breast Pump Device As directed aspirin, enteric coated (ASPIRIN, ENTERIC COATED) 81 mg EC tablet Take 81 mg by mouth once daily. oxyCODONE-acetaminophen (PERCOCET) 5-325 mg tablet Take 1-2 tablets by mouth every 4 hours as needed. VIT/IRON FUMARATE/FA ( ORAL) Take by mouth. No current facility-administered medications on file prior to visit. Social History Social History Tobacco Use Smoking status: Never Smokeless tobacco: Never Substance Use Topics Alcohol use: No Drug use: No Review of Symptoms REVIEW OF SYSTEMS See HPI, otherwise negative EXAM: BP 124/78 (BP Site: Left Arm, BP Position: Sitting, BP Cuff Size: Regular Adult) Pulse 65 Ht 165 cm (5' 4.96) Wt 80.7 kg (178 lb) LMP 10/25/2015 SpO2 99% BMI 29.66 kg/m General Appearance: Well appearing, alert, in no acute distress, well-hydrated, well nourished.. Skin: Skin color, texture, turgor normal, no suspicious rashes or lesions. Head: Normocephalic, no masses, lesions, tenderness or abnormalities. Eyes: Anicteric sclera. Pupils are equally round and reactive to light. Extraocular movements are intact. . Ears: External ears normal, canals clear. Nose/Sinuses: Nares normal, septum midline, mucosa normal, no drainage or sinus tenderness. Oropharynx: Lips, mucosa, and tongue normal, teeth and gums normal, oropharynx normal. Neck: Supple, no adenopathy; thyroid symmetric, normal size, no bruits. Back:no pain to palpation of vertebrae, good flexion and extension, good range of motion, no muscle tenderness, motor and sensory appear to be normal Lungs: Lungs clear to auscultation. No wheezing, rhonchi, rales.. Heart: RRR without murmur, gallop, or rubs. No ectopy. Abdomen: Normal abdominal exam, Abdomen soft, non-tender. Bowel sounds normal. No masses, organomegaly. Extremities: No deformities, edema, skin discoloration, clubbing or cyanosis. Good capillary refill. . Musculoskeletal: No joint swelling, deformity, or tenderness. Peripheral Pulses: Normal. Neurologic: Gait normal. Reflexes normal and symmetric. Sensation grossly intact.. Lymph Nodes: No cervical lymphadenopathy and No supraclavicular lymphadenopathy. Psychiatric: pleasant, cooperative. Health Maintenance List Pneumococcal Vaccine(2 of 2 - PCV) due on 02/20/2007 Depression Screening Never done Anxiety Screening Never done Hepatitis C Screening Never done Diabetic Foot Exam due on 04/15/2015 Dilated Retinal Exam due on 12/13/2015 Urine Albumin:Creatinine Ratio due on 05/03/2016 LDL Cholesterol due on 05/03/2016 HbA1C due on 07/27/2016 Cervical Cancer Screening due on 01/24/2019 Covid-19 Vaccine( - season) due on 03/12/2025 Annual PCP Team Chronic Disease Visit due on 03/12/2025 DTaP,Tdap,Td Vaccine(3 - Td or Tdap) due on 07/01/2029 Hepatitis B Vaccine Completed Influenza Vaccine Completed HIV Screening Completed HPV Vaccine Aged Out Data reviewed Previous records, office notes ASSESSMENT/PLAN: 1. Type 1 diabetes mellitus without complication (HCC) - ICD9: 250.01, ICD10: E10.9 (primary diagnosis) - COMPLETE BLOOD COUNT - COMPREHENSIVE METABOLIC PANEL - HEMOGLOBIN A1C 2. Screening for depression - ICD9: V79.0, ICD10: Z13.31 - DEPRESSION SCREENING 3. Encounter for screening examination for other mental health and behavioral disorders - ICD9: V79.8, ICD10: Z13.39 - ANXIETY SCREENING 4. GLENNA (generalized anxiety disorder) - ICD9: 300.02, ICD10: F41.1 - FLUOXETINE 10 MG CAPSULE - FLUOXETINE 20 MG CAPSULE 5. Well adult exam - ICD9: V70.0, ICD10: Z00.00 - COMPLETE BLOOD COUNT - COMPREHENSIVE METABOLIC PANEL - THYROID STIMULATING HORMONE - T4 FREE/FREE THYROXINE - HEMOGLOBIN A1C - LIPID PANEL BASIC - VITAMIN D 25 HYDROXY - VITAMIN B12 6. Screening for thyroid disorder - ICD9: V77.0, ICD10: Z13.29 - THYROID STIMULATING HORMONE - T4 FREE/FREE THYROXINE 7. Screening for lipid disorders - ICD9: V77.91, ICD10: Z13.220 - LIPID PANEL BASIC 8. Encounter for vitamin deficiency screening - ICD9: V77.99, ICD10: Z13.21 - VITAMIN D 25 HYDROXY - VITAMIN B12 Lora Willett APRN.MACHINE MAINTENANCE MECHANIC documented in this encounter [facility] 01-23-2024 Evaluation note Diagnosis Onset Date Resolution Diabetes mellitus type 1 chronic January 23, 2024 9:21am Insulin pump titration chronic De 2023 9:21am Presence of insulin pump chronic January 23, 2024 9:21am Amenorrhea acute April 09, 2024 9:25am Family history of breast cancer acute April 09, 025 9:25am Encounter for routine gynecological examination noneactive April 09 025 9:25am [facility] Work Phone: Evaluation note* Diagnosis Onset Date Resolution Status Non-proliferative diabetic retinopathy, both eyes acute Diabetes chronic Presence of insulin pump chr [facility] Work Phone: Evaluation note* Diagnosis Onset Date Resolution Status Non-proliferative diabetic retinopathy, both eyes acute Diabetes chronic Insulin pump titration chron ic Presence of insulin pump chr [facility] Work Phone: Evaluation note* Diagnosis Onset Date Resolution Status Non-proliferative diabetic retinopathy, both eyes acute Diabetes chronic Insulin pump titration chron ic Presence of insulin pump chr onic Encounter for routine gynecological examination noneactive [facility] Work Phone: Evaluation note* Diagnosis Onset Date Resolution Status Non-proliferative diabetic retinopathy, both eyes acute Diabetes mellitus type 1 chr [facility]ic [facility]* Diagnosis Onset Date Resolution Status Diabetes mellitus type 1 chr onic Overweight with body mass in dex (BMI) of 28 to 28.9 in adult chronic Presence of insulin pump chr onic Family history of breast cancer acute Encounter for routine gynecological examination noneactive Breast tenderness acute Family history of breast cancer acute Non-proliferative diabetic retinopathy, both eyes acute Diabetes mellitus type 1 chr onic Insulin pump titration chron ic Overweight with body mass in dex (BMI) of 28 to 28.9 in adult chronic Presence of insulin pump chr onic [facility] Work Phone: Evaluation note* Diagnosis Type 1 diabetes mellitus without complication (HCC)- Primary Type I (juvenile type) diabetes mellitus without mention of complication, not stated as uncontrolled Screening for depression Encounter for screening examination for other mental health and behavioral disorders GLENNA (generalized anxiety disorder) Generalized anxiety disorder Well adult exam Routine general medical examination at a health care facility Screening for thyroid disorder Screening for lipid disorders Encounter for vitamin deficiency screening Screening for other and unspecified endocrine, nutritional, metabolic, and immunity disorders [facility] Type 1 diabetes mellitus without complication, with long-term current use of insulin (HCC) [facility] Type 1 diabetes mellitus without complication (HCC)- Primary Type I (juvenile type) diabetes mellitus without mention of complication, not stated as uncontrolled [facility]ative[facility]No reason for referral information availableWWyandot [facility] Work Phone: Summary Purpose Family History No Family History Records Found Relationship Condition Age at Onset Recorded Date/T kemar mother Malignant neoplasm of breast Unknown grandfather Osteoporosis Unknown grandmother Diabetes mellitus Unknown Hypertension Unknown Advance Directives No Advanced Directives Records Found Advance Directive Response Recorded Date/ Time Advance Directives No August 21 0 4:09pm Living Will No September 16, 2019 6:51am Power of Metal Fabricator Welder No September 15 0 6:51am Advance Directive Response Recorded Date/ Time Advance Directives No August 21 0 3:09pm Living Will No September 16, 2019 5:51am Power of Metal Fabricator Welder No September 15 0 5:51am Advance Directive Response Recorded Date/ Time Living Will No September 16, 2019 5:51am Power of Metal Fabricator Welder No September 15 0 5:51am Advance Directives No August 21 0 3:09pm Chief Complaint and Reason for Visit Chief Complaint 4 M FU Reason for Visit Non-proliferative di abetic retinopathy, both eyes Diabetes Presence of insulin pump Chief Complaint 4 M FU Reason for Visit Non-proliferative di abetic retinopathy, both eyes Diabetes Insulin pump titration Presence of insulin pump Chief Complaint 4 M FU 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) Reason for Visit Non-proliferative di abetic retinopathy, both eyes Diabetes Insulin pump titration Presence of insulin pump Encounter for routine gynecological examination Chief Complaint E-ORDER 4 M FU Reason for Visit Non-proliferative di abetic retinopathy, both eyes Diabetes mellitus type 1 Presence of insulin pump Chief Complaint 6 M FU 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) Left breast lump LT BREAST LUMP Reason for Visit Diabetes mellitus ty pe 1 Overweight with body mass index (BMI) of 28 to 28.9 in adult Presence of insulin pump Family history of breast cancer Encounter for routine gynecological examination Breast tenderness Family history of breast cancer Non-proliferative diabetic retinopathy, both eyes Diabetes mellitus type 1 Insulin pump titration Overweight with body mass index (BMI) of 28 to 28.9 in adult Presence of insulin pump Chief Complaint Admit Date 4 M FU January 23, 2024 9 :21am 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) April 09, 2024 9:25am Reason for Visit Admit Date Diabetes mellitus type 1 January 22, 2 024 9:21am Insulin pump titration January 22 9:21am Presence of insulin pump January 22 2 024 9:21am Amenorrhea April 09, 2024 9:25am Family history of breast cancer April 09, 2024 9:25am Encounter for routine gynecological exam ination April 09, 2024 9:25am Additional Source Comments INFORMATION SOURCE (unrecogn ized section and content) DATE CREATED AUTHOR 09/29/2018 [facility] ([place]) DATE CREATED AUTHOR AUTHOR'S ORGANIZ ATION 06/13/2021 [facility] DATE CREATED AUTHOR AUTHOR'S ORGANIZ ATION 05/03/2024 [facility] DATE CREATED AUTHOR AUTHOR'S ORGANIZ ATION 07/23/2024 [facility] Goals (unrecognized section and content) Goals may be documented in a n alternate sectionGoals may be documented in an alternate sectionGoals may be documented in an alternate sectionGoals may be documented in an alternate sectionGoals may be documented in an alternate sectionGoals may be documented in an alternate section Care Teams (unrecognized sec tion and content) Team Status: Active Member Role Status Dates Dr. Andrea Cronin MD Family Provider Active Dr. Andrea Cronin MD Primary Care Provider Active Team Status: Inactive Member Role Status Dates Dr. Andrea Cronin MD Primary Care Provider, Refer ring Provider Active Dr. Edmundo Morrell MD Attending Provider Active Team Status: Inactive Member Role Status Dates Dr. Andrea Cronin MD Primary Care Provider Active Dr. Edmundo Morrell MD Attending Provider, Referring Provi nic Active Team Status: Inactive Member Role Status Dates Dr. Andrea Cronin MD Primary Care Provider, Refer ring Provider Active Dr. Vandana Pablo MD Attending Provider Active Team Status: Inactive Member Role Status Dates Dr. Andrea Cronin MD Primary Care Provider, Refer ring Provider Active Tania Lynch CNM Attending Provider Active Team Status: Inactive Member Role Status Dates Dr. Andrea Cronin MD Primary Care Provider Active Tania Lynch CNM Attending Provider, Referring Pro vider Active Marketing Production Coordinator Relationship Specialty Start Date End Date ChangLora, MAMMALOGY TEACHER.MACHINE MAINTENANCE MECHANIC [address] [place] [address] PCP - General Family Medicine 03/12/24 Marketing Production Coordinator Relationship Specialty Start Date End Date Lora Willett, MAMMALOGY TEACHER.MACHINE MAINTENANCE MECHANIC [address] [place] [address] PCP - General Family Medicine 03/12/24 Marketing Production Coordinator Relationship Specialty Start Date End Date Lora Willett, MAMMALOGY TEACHER.MACHINE MAINTENANCE MECHANIC [address] [place] [address] PCP - General Family Medicine 03/12/24 Lou Stiles, CHARLIE EHP Cathode Ray Tube Salvage Processor 04/05/24 Marketing Production Coordinator Relationship Specialty Start Date End Date Lora Willett, MAMMALOGY TEACHER.MACHINE MAINTENANCE MECHANIC [address] [place] [address] PCP - General Family Medicine 03/12/24 Lou Stiles, RN EHP Cathode Ray Tube Salvage Processor 04/05/24 Marketing Production Coordinator Relationship Specialty Start Date End Date Lora Willett, MAMMALOGY TEACHER.MACHINE MAINTENANCE MECHANIC [address] [place] [place] [address] PCP - General Family Medicine 03/12/24 Luo Stiles, RN EHP [employer]ode Ray Tube Salvage Processor 04/05/24 Team Status: Active Member Role Status Dates KEYUR Bartlett NPC Primary Care Provider Active Team Status: Inactive Member Role Status Dates Dr. Andrea Cronin MD Primary Care Provider Active Start: January 23, 2024 End: January 23, 2024 Dr. Andrea Cronin MD Referring Provider Active Start: January 23, 2024 End: January 23, 2024 Dr. Edmundo Morrell MD Attending Provider Active Sta rt: January 23, 2024 End: January 23, 2024 Team Status: Inactive Member Role Status Dates Dr. Andrea Cronin MD Primary Care Provider Active Start: April 09, 2024 End: April 09, 2024 Dr. Andrea Cronin MD Referring Provider Active Start: April 09, 2024 End: April 09, 2024 VIDHYA Lester Attending Provider Active Start: April 09, 2024 End: April 09, 2024 Team Status: Inactive Member Role Status Dates Dr. Andrea Cronin MD Primary Care Provider Active Start: April 09, 2024 End: April 09, 2024 VIDHYA Lester Attending Provider Active Start: April 09, 2024 End: April 09, 2024 VIDHYA Lester Referring Provider Active Start: April 09, 2024 End: April 09, 2024 Source Comments (unrecognize d section and content) In the event this informatio n is protected by the Federal Confidentiality of Alcohol and Drug Abuse Patient Records regulations: The Federal rules restrict any use of the information to criminally investigate or prosecute any alcohol or drug abuse patient.[facility] Center[facility] the event this information is protected by the Federal Confidentiality of Alcohol and Drug Abuse Patient Records regulations: The Federal rules restrict any use of the information to criminally investigate or prosecute any alcohol or drug abuse patient.[facility] CenterIn the event this information is protected by the Federal Confidentiality of Alcohol and Drug Abuse Patient Records regulations: The Federal rules restrict any use of the information to criminally investigate or prosecute any alcohol or drug abuse patient.[facility] CenterIn the event this information is protected by the Federal Confidentiality of Alcohol and Drug Abuse Patient Records regulations: The Federal rules restrict any use of the information to criminally investigate or prosecute any alcohol or drug abuse patient.[facility] CenterIn the event this information is protected by the Federal Confidentiality of Alcohol and Drug Abuse Patient Records regulations: The Federal rules restrict any use of the information to criminally investigate or prosecute any alcohol or drug abuse patient.[facility] CenterIn the event this information is protected by the Federal Confidentiality of Alcohol and Drug Abuse Patient Records regulations: The Federal rules restrict any use of the information to criminally investigate or prosecute any alcohol or drug abuse patient.[facility] CenterIn the event this information is protected by the Federal Confidentiality of Alcohol and Drug Abuse Patient Records regulations: The Federal rules restrict any use of the information to criminally investigate or prosecute any alcohol or drug abuse patient.[facility] Reason for Visit (unrecogniz ed section and content) Reason Comments Establish Care Reason Comments Request Outside Medical Records Reason Onset Date Comments Care Coordination 04/05/2024 Enroll Reason Onset Date Comments Cathode Ray Tube Salvage Processor - Other 04/05/2024 Reason Onset Date Comments Refill Request 04/29/2024 Reason Comments Medication Problem Novolog FOR RECORDS PERTAINING TO PATIENTS WHO ARE OR HAVE BEEN ENROLLED IN A CHEMICAL DEPENDENCY/SUBSTANCEABUSE PROGRAM, SOME INFORMATION MAY BE OMITTED. This clinical summary was aggregated from multiple sources. Caution should be exercised in using it in the provision of clinical care. This summary normalizes information from multiple sources, and as a consequence, information in this document may materially change the coding, format and clinical context of patient data. In addition, data may be omitted in some cases. CLINICAL DECISIONS SHOULD BE BASED ON THE PRIMARY CLINICAL RECORDS. [facility] [employer] [facility]. provides no warranty or guarantee of the accuracy or completeness of information in this document.
== END | disposition home or self-care (01) ==
LOC: LAB 09:59
PROVIDERS: PCP Nurse Practitioner Family; Referring Provider Internal Medicine Endocrinology, Diabetes & Metabolism; Visit Provider Internal Medicine Endocrinology, Diabetes & Metabolism
DX: E10.65 Type 1 diabetes mellitus with hyperglycemia (principal)
CPT/HCPCS: 82043; 82570

== ENCOUNTER → 2024-08-21 | Outpatient (CLI) | payer OTHER, SELFPAY ==
--- NOTE | 2024-08-21 14:17 | US_ITS ---
PROCEDURE: PELVIC W/ TRANSVAGINAL REASON FOR EXAM: AMENORRHEA TECHNIQUE: PELVIC W/ TRANSVAGINAL COMPARISON: None FINDINGS: LMP: July 28, 2024. Measurements: Uterus: 8 cm x 5.6 cm x 4.4 cm with a volume of 102 mL Endometrial Thickness: 13 mm. Hyperechoic. Nabothian cyst. Right Ovary: 4.7 cm x 4.1 cm x 2.4 cm with a volume of 24.11 mL. Left Ovary: 4.7 cm x 4.6 cm x 1.6 cm with a volume of 18.19 mL. TRANSABDOMINAL: Uterus: Normal size, myometrial echotexture, and contour. Endometrium: Unremarkable. Right ovary: Normal size and echotexture. Left ovary: Normal size and echotexture. Other: No large pelvic mass identified. Transvaginal sonography was performed to better visualize the endometrium. TRANSVAGINAL: Uterus: Retroverted. Endometrium: Normal echotexture. Right ovary: Normal size and echotexture. Multiple follicles seen along the periphery of the ovary. Left ovary: Normal size and echotexture. Multiple follicles are seen along the periphery of the ovary. Other adnexal findings: None. Cul-de-sac: Minimal free fluid in the pelvis within normal limits. Tenderness: No tenderness US/Pelvic w/ Transvaginal IMPRESSION: Minimal amount of free fluid seen in the cul-de-sac. Multiple follicle seen along the periphery of the ovaries. Polycystic ovarian disease should be ruled out. Reading Location: [place] [id number]
--- NOTE | 2024-08-21 14:17 | US_ITS ---
PROCEDURE: PELVIC W/ TRANSVAGINAL REASON FOR EXAM: AMENORRHEA TECHNIQUE: PELVIC W/ TRANSVAGINAL COMPARISON: None FINDINGS: LMP: July 28, 2024. Measurements: Uterus: 8 cm x 5.6 cm x 4.4 cm with a volume of 102 mL Endometrial Thickness: 13 mm. Hyperechoic. Nabothian cyst. Right Ovary: 4.7 cm x 4.1 cm x 2.4 cm with a volume of 24.11 mL. Left Ovary: 4.7 cm x 4.6 cm x 1.6 cm with a volume of 18.19 mL. TRANSABDOMINAL: Uterus: Normal size, myometrial echotexture, and contour. Endometrium: Unremarkable. Right ovary: Normal size and echotexture. Left ovary: Normal size and echotexture. Other: No large pelvic mass identified. Transvaginal sonography was performed to better visualize the endometrium. TRANSVAGINAL: Uterus: Retroverted. Endometrium: Normal echotexture. Right ovary: Normal size and echotexture. Multiple follicles seen along the periphery of the ovary. Left ovary: Normal size and echotexture. Multiple follicles are seen along the periphery of the ovary. Other adnexal findings: None. Cul-de-sac: Minimal free fluid in the pelvis within normal limits. Tenderness: No tenderness US/Pelvic w/ Transvaginal IMPRESSION: Minimal amount of free fluid seen in the cul-de-sac. Multiple follicle seen along the periphery of the ovaries. Polycystic ovarian disease should be ruled out. Reading Location: [place] [address]
== END | disposition home or self-care (01) ==
LOC: OPUS 14:17
PROVIDERS: PCP Nurse Practitioner Family; Referring Provider Nurse Practitioner Family; Visit Provider Nurse Practitioner Family
DX: N91.2 Amenorrhea, unspecified (principal)
CPT/HCPCS: 76830; 76856